=== PATIENT | male | born 1950 | race Caucasian/White ===

== ENCOUNTER 2024-05-29 11:32 | Inpatient (IN) | payer OTHER, MEDICARE, SELFPAY ==
--- NOTE | ~2024-05-29 | US_ITS ---
EXAMINATION: US RETROPERITONEAL LIMITED (RENAL ONLY) CLINICAL INFORMATION: Follow-up hydronephrosis.. COMPARISON: CT abdomen and pelvis dated 05/29/2024. TECHNIQUE: Real-time imaging of the kidneys. FINDINGS: RIGHT KIDNEY: 9.9 x 3.7 x 4.3 cm (SAG x AP x TRV). The kidney is normal in size, contour, and echogenicity. Renal cortical thickness is diminished. No calculi or focal parenchymal lesions. There is marked hydronephrosis. LEFT KIDNEY: 8.9 x 4.3 x 4.7 cm (SAG x AP x TRV). The kidney is normal in size, contour, and echogenicity. Renal cortical thickness is normal. No calculi or focal parenchymal lesions. There is moderately severe hydronephrosis. OTHER: The urinary bladder is decompressed by a Salcedo catheter. There is no bladder wall thickening to 1.3 cm, with trabeculations. Prostate dimensions are 9.1 x 8.0 x 4.5 cm (volume 361.0 mL). US/US renal BI IMPRESSION: 1. There is marked right hydronephrosis, with renal cortical thinning. Moderately severe left hydronephrosis is seen. 2. There is marked prostatomegaly. 3. The urinary bladder is decompressed by a Salcedo catheter. There is bladder wall thickening to 1.3 cm, possibly related to hypertrophy.
--- NOTE | ~2024-05-29 | CT_ITS ---
EXAMINATION: CT ABDOMEN AND PELVIS WITHOUT CONTRAST CLINICAL INFORMATION: Renal failure. Urinary retention. Dysuria. COMPARISON: None available. TECHNIQUE: Multidetector volumetric imaging was performed from the superior aspect of the liver through the pubic symphysis. Sagittal and coronal reformatted images were obtained on the technologist's workstation. This CT examination was performed using dose optimization techniques as appropriate, variously including the following: *Automated exposure control *Adjustment of mA and/or kV according to patient size (this includes techniques or standardized protocols for targeted exams where dose is matched to indication/reason for exam; i.e. extremities or head) *Use of iterative reconstruction technique DLP: 506 mGy-cm FINDINGS: Motion artifact technically degrades image quality. LUNG BASES: No pleural or pericardial effusion. LIVER, GALLBLADDER, AND BILIARY TREE: The noncontrast liver is normal in size and contour. No biliary ductal dilatation is present. The gallbladder is contracted. PANCREAS: Unremarkable. SPLEEN: Unremarkable. ADRENAL GLANDS: Unremarkable. KIDNEYS AND URETERS: Severe bilateral hydroureteronephrosis to the level of the enlarged prostate gland. Bilateral perinephric stranding. BLADDER: Circumferential wall thickening. Mild perivesicular stranding. Multiple bladder diverticula. GASTROINTESTINAL TRACT: Possible gastric wall thickening. No small bowel obstruction. Appendix is within normal limits. ABDOMINAL WALL: No significant hernia is appreciated. LYMPH NODES: Left external iliac lymph node measures 1.9 x 0.8 cm. VASCULAR: Normal caliber abdominal aorta. PELVIC VISCERA: Marked enlargement of the prostate gland. The prostate gland measures 9.2 x 9.5 cm in transverse. OSSEOUS STRUCTURES: No destructive bone lesions. CT/CT abdomen pelvis wo IV con IMPRESSION: Severe bilateral hydroureteronephrosis to the level of the enlarged prostate gland. Severe prostatomegaly measuring 9.2 x 9.5 cm in transverse. Diffuse bladder wall thickening and perivesicular stranding. These findings most likely represent obstructive uropathy/bladder outlet obstruction.
--- NOTE | ~2024-05-29 | IR_ITS ---
EXAMINATION: XR PERCUTANEOUS NEPHROSTOMY CLINICAL INFORMATION: Bilateral obstructive uropathy COMPARISON: CT abdomen and pelvis 05/29/2024. Ultrasound renal bilateral 06/01/2024. TECHNIQUE/FINDINGS: Informed consent was obtained following a discussion of the risks and benefits of the procedure with the patient. The patient was placed prone on the fluoroscopy table. Preliminary ultrasound demonstrates moderate-severe left hydronephrosis and moderate right hydronephrosis. We began by a dressing the left side. A posterior lower pole calyx was accessed with a 21-gauge AccuStick needle under direct ultrasound guidance. The needle was exchanged for the transitional dilator over a 0.018 guidewire. Antegrade nephrostogram demonstrates severe hydroureteronephrosis. A 0.035 guidewire was placed. After dilating the tract, an 8 [place] nephrostomy tube was placed. The pigtail was formed in the renal pelvis. Antegrade nephrostogram demonstrated satisfactory position of the tube. We then addressed to the left side. A posterior lower pole calyx was accessed with a 21-gauge AccuStick needle under direct ultrasound guidance. The needle was exchanged for the Trachsel dilator over a 0.018 guidewire. An antegrade nephrostogram demonstrates moderate hydroureteronephrosis. A 0.035 guidewire was placed. After dilating the tract, an 8 [place] nephrostomy tube was placed. Pigtail was formed in the renal pelvis. Antegrade nephrostogram demonstrates satisfactory position of the tube. Both catheters were secured with sutures and sterile dressings were applied. The catheters were maintained to gravity bag drainage. Medications for conscious sedation: The patient received intravenous conscious sedation under my direct supervision. A registered nurse monitored the patient and the patient's vital signs throughout the procedure. The total sedation was 39 minutes. Versed and fentanyl was given for good effect. FLUOROSCOPY TIME: 2.7 minutes DOSE AREA PRODUCT: 16 uGy-m2 (microgray-meter squared) IR/IR nephrostomy IMPRESSION: Placement of bilateral nephrostomy tubes as detailed above Electronically signed by: Jorge Alberto Herring MD 06/22/2024 01:32 PM EDT
[2024-05-29 11:49] VITALS: BP 185/87; PULSE 68; RESP 18; O2SAT 99; BMI 23.5
--- NOTE | 2024-05-29 11:51 | ED_ITS ---
HPI - General Adult General Chief complaint: Urogenital-Male Stated complaint: diff urinating Time Seen by Provider: 05/29/24 12:20 Source: patient Mode of arrival: ambulatory Limitations: no limitations History of Present Illness ED Provider: Dk Light PA-C HPI narrative: 74 yo male with no known medical history presents to the ER for evaluation of acute on chronic urinary retention, difficulty urinating and dysuria. Patient states he has had issues with urination for the last several years but over the last 1 year symptoms are getting worse. He states he is up 5 or 6 times per night urinating, he has to force the urine out and it is a very weak stream. He reports burning with urination for the last couple of months as well. He is urinating small amounts and having difficulty emptying his bladder. He denies any blood in his urine. Denies any abdominal pain or back pain. No fever or chills. He does not see a doctor and has not had labs done in about 10 years. He went to the urology office today for evaluation however he did not have prior authorization so they told him to come to the ER for further evaluation. MD complaint: Urinary retention, difficulty emptying the bladder Onset (ago): month(s) Radiation: non-radiation Severity: moderate Associated symptoms: denies other symptoms Treatments prior to arrival: none Related Data Home Medications ?Medication ?Instructions ?Recorded ?Confirmed No Known Home Meds 05/29/24 05/29/24 Allergies Allergy/AdvReac Type Severity Reaction Status Date / Time No Known Allergies Allergy Verified 05/29/24 11:53 Review of Systems 2 Review of Systems: Yes all other systems are reviewed and are negative PMFSH Social History Social History Advance Directives: No Advance Directives Information Provided: No Do you have a plan to hurt others: No Plan Physical Exam ED Vital Signs: Vital Signs - 24 hr 05/29/24 11:49 05/29/24 12:56 05/29/24 14:57 Temperature 97.9 F 97.6 F Pulse Rate 68 63 Respiratory Rate 18 16 Blood Pressure 185/87 H 198/93 H Pulse Oximetry 99 100 Oxygen Delivery Method Room Air Room Air 05/29/24 15:17 Temperature Pulse Rate 60 Respiratory Rate 16 Blood Pressure 175/86 H Pulse Oximetry Oxygen Delivery Method BMI result Body Mass Index 23.5 Appearance: Alert. Oriented X3. No acute distress. Head: normocephalic, atraumatic. Eyes: Pupils equal, round and reactive to light. ENT: Pharynx normal. No tonsillar swelling or exudate. Neck: Normal inspection. Neck supple. CVS: Normal heart rate and rhythm. Pulses normal. Respiratory: No respiratory distress. Breath sounds normal. Abdomen: Soft and nontender. +BS x4 Skin: Skin warm and dry. Normal skin color. Normal skin turgor. No rashes. Extremities: No lower extremity edema. No joint swelling. Neuro/psych: Oriented X 3. No motor deficit. No sensory deficit. CN II-XII intact. Normal speech and cognition. Course Course Course Narrative: RME performed by Lauren Stern PA-C. Patient is a 74 year old assigned male at presenting to the emergency department with difficulty urinating. Patient states that he has been having difficulty urinating for months. States that he is supposed to see the urologist group here but they told him to come to the ER first. Detailed physical exam and review of systems are deferred to the food selector. Labs and bladder scan ordered. Patient placed back in the waiting room pending room availability and results. Medications Administered Discontinued Medications Generic Name Dose Route Start Last Admin Trade Name Freq PRN Reason Stop Dose Admin Amlodipine Besylate 10 mg 05/29/24 14:57 05/29/24 15:18 Amlodipine Besylate 10 Mg Tablet PO 05/29/24 14:58 10 mg ONCE ONE Administration Protocol Sodium Chloride 1,000 mls @ 999 mls/hr 05/29/24 13:15 05/29/24 15:18 Ns IV 05/29/24 14:15 Infused .Q1H1M ADAM Infusion Ceftriaxone Sodium 1 gm/ 50 mls @ 100 mls/hr 05/29/24 13:07 05/29/24 15:08 Sodium Chloride IV 05/29/24 13:36 Infused ONCE ONE Infusion Lidocaine HCl 10 ml 05/29/24 15:57 05/29/24 16:13 Lidocaine Hcl 2 % Urojet 10 Ml Jel.Pf.Mike TOPICAL 05/29/24 15:58 10 ml ONCE ONE Administration Procedures Catheter Insertion (Urinary) Date of insertion: 05/29/24 Time of insertion: 16:08 Reason for placing: Yes Reason for placing indwelling catheter: Urinary obstruction Bladder scan/ultrasound used before catheterization: Yes Antiseptic solution prep: Povidone-Iodine Topical anesthesia used: Yes Catheter type/location: Coude Size (Georgian): 16 Catheter balloon size (mL): 30 Catheter balloon amount: 20 Results: successfully catheterized-immediate flow Procedure performed: without complications Medical Decision Making Medical Decision Making [facility] Narrative: 74-year-old male with no known medical history presents to the ER for evaluation of acute on chronic urinary complaints. He reports dysuria, frequency, difficulty emptying the bladder and weak urinary stream. Patient is hypertensive on arrival to the ER with systolic blood pressure in the 180s. He denies being on any medications for this. He does not have a primary care doctor. No chest pain, headache or vision changes. His urinalysis is positive for infection and blood. His physical exam is unremarkable, no CVA tenderness bilaterally. He has leukocytosis of 13.4. He is not tachycardic or febrile. Low suspicion for sepsis. Lab work is showing significant renal failure with a BUN of 114 and a creatinine of 5.68. He has no known baseline. Denies ever having history of kidney disease. Results of lab work discussed with the patient. Will get CT scan for evaluation of possible obstructive uropathy, urine electrolytes, give IV fluids and Rocephin for UTI. He will require admission to the hospital and Nephrology consult. No emergent need for dialysis at this time. His potassium is stable at 4.9 and he is mentating well with a BUN of 114 suggesting this is a chronic process. CT scan read showing 9+cm prostate gland with bilateral hydronephrosis and bladder outlet obstruction. Salcedo ordered. Dr. Reynolds consulted and aware. plan for admission for further management. Differential Diagnosis Differential Diagnoses: The differential diagnosis associated with the presentation includes UTI, BPH, chronic urinary retention with hydronephrosis, CKD related to hypertensive nephropathy Admission/Observation Consideration of admission/observation: Escalation of care including admission/observation considered Consult Healthcare Provider Management of the patient was discussed with: Hospitalist and Preschool Disability Teacher Dr. Reynolds Urology Lab Data [facility] Lab Attestation statement: I reviewed the patient's lab results. Leukocytosis, mild normocytic anemia, thrombocytosis, renal failure with significantly elevated BUN, hyponatremia, acidosis with anion gap 05/29/24 12:14 05/29/24 12:14 Labs: Lab Results 05/29/24 Range/Units 12:14 WBC 13.4 H (4.8-10.8) X10*3/uL RBC 3.92 L (4.60-5.80) X10*6/uL Hgb 11.5 L (14.0-18.0) g/dl Hct 34.9 L (42.0-52.0) % MCV 89.0 (80.0-98.0) fL MCH 29.3 (27.0-33.0) pg MCHC 33.0 (31.0-36.0) g/dl RDW 13.2 (11.0-16.0) % Plt Count 542 H (160-400) X10*3/uL MPV 9.0 L (9.4-12.4) fL Immature Gran % (Auto) 1.1 H (0.0-0.4) % Neut % (Auto) 75.3 H (45-73) % Lymph % (Auto) 12.2 L (20-40) % [place] % (Auto) 9.6 (2-11) % Eos % (Auto) 1.0 (0-4) % Baso % (Auto) 0.8 (0-2) % Lymph # (Auto) 1.6 (1.2-4.9) X10*3/uL [place] # (Auto) 1.3 H (0.1-1.2) X10*3/uL Eos # (Auto) 0.1 (0.0-0.4) X10*3/uL Baso # (Auto) 0.1 (0.0-0.2) X10*3/uL Abs Immat Gran (auto) 0.15 H (0.00-0.03) X10*3/uL Absolute Neuts (auto) 10.1 H (2.0-8.3) x10*3/uL Absolute Nucleated RBC 0.000 (0.0-0.012) X10*3/uL Nucleated RBC % (auto) 0.0 (0.0-0.2) /100WBC Sodium 129 L (135-145) mmol/L Potassium 4.9 (3.3-5.1) mmol/L Chloride 97 (96-108) mmol/L Carbon Dioxide 16 L (22-29) mmol/L Anion Gap 21 H (12-20) BUN 114 H (9-16) mg/dL Creatinine 5.68 H* (0.5-1.4) mg/dL Estim Creat Clear Calc 10.6 Estimated GFR 10 Random Glucose 113 (60-115) mg/dL Calcium 9.1 (8.4-10.2) mg/dL Magnesium 2.6 (1.6-2.6) mg/dL Total Bilirubin 0.6 (0.0-1.0) mg/dL AST 22 (5-37) U/L ALT 59 H (0-40) U/L Alkaline Phosphatase 251 H (39-117) U/L Total Protein 9.5 H (6.5-8.0) g/dL Albumin 3.8 (3.5-5.0) g/dL Urine Color PINK Urine Appearance Turbid Urine pH 5.5 (5.0-9.0) Ur Specific [place] 1.010 (1.005-1.025) Urine Protein 100 (2+) H (Neg-Trace) mg/dL Urine Glucose (UA) Negative (Negative) mg/dL Urine Ketones Negative (Negative) mg/dL Urine Blood Large (3+) H (Negative) Urine Nitrite Negative (Negative) Ur Leukocyte Esterase Large (3+) H (Negative) Urine RBC >20 H (0-2) /HPF Urine WBC >50 H (0-5) /HPF Ur Squamous Epith Cells 0-2 (0-2) /HPF Urine Bacteria 4+ (None Seen) Hyaline Casts 0-2 (0-2) /LPF Urine Osmolality 339 L (373-1093) mosm/kg Ur Random Sodium 46.0 mmol/L Urine Creatinine 65.57 mg/dL Independent Interpretation I performed an independent interpretation of an: CT Scan Interpretation: CT with severely enlarged prostate w/ bilateral hydronephrosis, bladder wall thickened Radiology Impression Discussion of test interpretation with radiology: I have reviewed the radiologist's reading. Radiologist Impression: EXAMINATION: CT ABDOMEN AND PELVIS WITHOUT CONTRAST CLINICAL INFORMATION: Renal failure. Urinary retention. Dysuria. COMPARISON: None available. TECHNIQUE: Multidetector volumetric imaging was performed from the superior aspect of the liver through the pubic symphysis. Sagittal and coronal reformatted images were obtained on the technologist's workstation. This CT examination was performed using dose optimization techniques as appropriate, variously including the following: *Automated exposure control *Adjustment of mA and/or kV according to patient size (this includes techniques or standardized protocols for targeted exams where dose is matched to indication/reason for exam; i.e. extremities or head) *Use of iterative reconstruction technique DLP: 506 mGy-cm FINDINGS: Motion artifact technically degrades image quality. LUNG BASES: No pleural or pericardial effusion. LIVER, GALLBLADDER, AND BILIARY TREE: The noncontrast liver is normal in size and contour. No biliary ductal dilatation is present. The gallbladder is contracted. PANCREAS: Unremarkable. SPLEEN: Unremarkable. ADRENAL GLANDS: Unremarkable. KIDNEYS AND URETERS: Severe bilateral hydroureteronephrosis to the level of the enlarged prostate gland. Bilateral perinephric stranding. BLADDER: Circumferential wall thickening. Mild perivesicular stranding. Multiple bladder diverticula. GASTROINTESTINAL TRACT: Possible gastric wall thickening. No small bowel obstruction. Appendix is within normal limits. ABDOMINAL WALL: No significant hernia is appreciated. LYMPH NODES: Left external iliac lymph node measures 1.9 x 0.8 cm. VASCULAR: Normal caliber abdominal aorta. PELVIC VISCERA: Marked enlargement of the prostate gland. The prostate gland measures 9.2 x 9.5 cm in transverse. OSSEOUS STRUCTURES: No destructive bone lesions. CT/CT abdomen pelvis wo IV con IMPRESSION: Severe bilateral hydroureteronephrosis to the level of the enlarged prostate gland. Severe prostatomegaly measuring 9.2 x 9.5 cm in transverse. Diffuse bladder wall thickening and perivesicular stranding. These findings most likely represent obstructive uropathy/bladder outlet obstruction. Prescription Management I considered prescription management with: Antibiotic Social Determinants Patient?s care significantly limited by Social Determinants of Health including: Problems related to primary support group and Other Social Determinant of Health Critical Care Time Critical Care Time Critical Care Time: Yes Total Critical Care Time: 40 Attestation: I have personally provided critical care time exclusive of time spent on separately billable procedures. Time includes review of lab data, radiology results, discussion with consultants, and monitoring for potential decompensation. Intervention performed as documented. Discharge Plan Discharge Clinical Impression: Bladder outlet obstruction, Enlarged prostate with urinary obstruction Urinary tract infection Qualifiers: Urinary tract infection type: acute cystitis Hematuria presence: with hematuria Qualified Code(s): N30.01 - Acute cystitis with hematuria Renal failure Qualifiers: Renal failure chronicity: unspecified chronicity Qualified Code(s): N19 - Unspecified kidney failure Hypertension Qualifiers: Hypertension type: unspecified Qualified Code(s): I10 - Essential (primary) hypertension Patient Disposition: Admitted As Inpatient
[2024-05-29 12:21] LABS: MANUAL DIFF FLAG NO
[2024-05-29 12:22] LABS: Basophils Absolute Auto 0.1 X10*3/uL (0.0-0.2); Basophils Percent Auto 0.8 % (0-2); Eosinophils Absolute Auto 0.1 X10*3/uL (0.0-0.4); Hematocrit 34.9 % (42.0-52.0); Hemoglobin 11.5 g/dl (14.0-18.0); Imm Gran Abs Auto 0.15 X10*3/uL (0.00-0.03); Imm Gran Pct Auto 1.1 % (0.0-0.4); Lymphocytes Absolute Auto 1.6 X10*3/uL (1.2-4.9); Lymphocytes Percent Auto 12.2 % (20-40); Mean Corpuscular Hemoglobin 29.3 pg (27.0-33.0); Monocytes Absolute Auto 1.3 X10*3/uL (0.1-1.2); Monocytes Percent Auto 9.6 % (2-11); Neutrophils Absolute Auto 10.1 x10*3/uL (2.0-8.3); Neutrophils Percent Auto 75.3 % (45-73); Platelet Count 542 X10*3/uL (160-400); Red Blood Count 3.92 X10*6/uL (4.60-5.80); Red Cell Distribution Width 13.2 % (11.0-16.0); White Blood Count 13.4 X10*3/uL (4.8-10.8)
[2024-05-29 12:24] LABS: Appearance Urine Turbid; Glucose Urine UA Negative (Negative); Leukocyte Esterase Urine Large (3+) (Negative); Nitrite Urine Negative (Negative); PH 5.5 (5.0-9.0); UMIC TRIGGER UACC YES; Urine Blood Large (3+) (Negative); Urine Ketones Negative (Negative); Urine Protein 100 (2+) mg/dL (Neg-Trace)
[2024-05-29 12:25] LABS: Color Urine PINK
[2024-05-29 12:26] LABS: Bacteria Urine 4+ (None Seen); Hyaline Casts Urine 0-2 /LPF (0-2); RBC Urine >20 /HPF (0-2); Squamous Epithelial Cell Urine 0-2 /HPF (0-2); UACC Culture Trigger YES; WBC Urine >50 /HPF (0-5)
[2024-05-29 12:45] LABS: Alanine Aminotransferase 59 U/L (0-40); Albumin Level 3.8 g/dL (3.5-5.0); Alkaline Phosphatase 251 U/L (39-117); Anion Gap 21 (12-20); Aspartate Amino Transferase 22 U/L (5-37); Bilirubin Total 0.6 mg/dL (0.0-1.0); Blood Urea Nitrogen 114 mg/dL (9-16); Calcium 9.1 mg/dL (8.4-10.2); Carbon Dioxide 16 mmol/L (22-29); Chloride 97 mmol/L (96-108); Glucose Random 113 mg/dL (60-115); Magnesium 2.6 mg/dL (1.6-2.6); Potassium 4.9 mmol/L (3.3-5.1); Sodium 129 mmol/L (135-145); Total Protein 9.5 g/dL (6.5-8.0)
[2024-05-29 12:48] LABS: Creatinine Clr Calc Pharmacy 10.6; Estimated Glomerular Filt Rate 10
[2024-05-29 12:56] VITALS: TEMP 36.6
[2024-05-29 13:25] LABS: Creatinine Urine 65.57 mg/dL
[2024-05-29] MEDS: cefTRIAXone sodium 1 GM in 0.9 % Sodium Chloride 50 ML IV (13:46)
[2024-05-29] MEDS: 0.9 % Sodium Chloride 1,000 ML 999 ML IV (13:46)
[2024-05-29 13:58] LABS: Osmolality Urine 339 mosm/kg (373-1093)
[2024-05-29 14:57] VITALS: BP 198/93; PULSE 63; RESP 16; TEMP 36.4; O2SAT 100
[2024-05-29 15:17] VITALS: BP 175/86; PULSE 60; RESP 16
[2024-05-29] MEDS: amLODIPine Besylate 10 MG TABLET PO (15:18)
[2024-05-29] MEDS: Lidocaine HCl 2 % Urojet 10 ML JEL.PF.APP TOPICAL (16:13)
--- NOTE | 2024-05-29 16:21 | P.HPHOSP_ITS ---
History of Present Illness Date of Service: 05/29/24 Chief Complaint: Urinary retention 74-year-old man presenting to the ER with complaints of worsening urinary retention. Apparently he has been having difficulty urination and dysuria for the last several years but worsening symptoms over the last year. He reports that he urinates at least 5 times per night and feels like he has to force the urine out and has a very weak stream. He reported some burning with urination over the last few months as well. He reports that he lives with his and he is very active playing sports including soccer. He denied any fever, chills, nausea, vomiting, diarrhea. He reports that he has not seen a doctor in over 10 years. Apparently he went to the urology office today and did not have prior authorization for his visit and he was told to come to the ER for further evaluation. He has multiple noted lab abnormalities including sodium of 129, CO2 16, anion gap 21, creatinine 5.68, AST 59, alk phos 251, positive urinalysis, white blood cell count 13.4. Abdominopelvic CT showed severe bilateral hydronephrosis with enlarged prostate gland and severe prostatomegaly. Diffuse bladder wall thickening and perivascular stranding likely secondary to bladder outlet obstruction. He was also noted to have elevated blood pressure and not on any home medications. In the ER, he received a L of IV fluid, Rocephin, amlodipine. Plan will be to admit for further management and treatment of JANINA secondary to bladder outlet obstruction. Review of Systems 2 Review of Systems: Denies any recent fever chills or decrease in appetite respiratory denied any shortness breath or cough cardiovascular denied any chest pain gastrointestinal denies any dysphagia abdominal pain nausea vomiting or diarrhea genitourinary see HPI musculoskeletal denies any joint pain or swelling neuropsych denies any weakness or seizures all other systems reviewed are negative [facility] Medical History (Updated 05/29/24 @ 17:37 by Leticia Patterson NP) No pertinent past medical history Pertinent family history: No history of cancer, cardiac or gastrointestinal problems Surgical History (Updated 05/29/24 @ 17:37 by Leticia Patterson NP) No pertinent past surgical history Social History Advance Directives: No Advance Directives Information Provided: No Do you have a plan to hurt others: No Plan Meds Allergies Allergy/AdvReac Type Severity Reaction Status Date / Time No Known Allergies Allergy Verified 05/29/24 11:53 Active Medications: Current Medications Acetaminophen (Acetaminophen 325 Mg Tablet) 650 mg PO Q6H PRN PRN Reason: Pain, Mild (Pain Scale 1-3), fever or headache Calcium Carbonate (Calcium Carbonate 750 Mg Tab.Chew) 750 mg PO Q4H PRN PRN Reason: Heartburn Heparin Sodium (Porcine) (Heparin Sodium,Porcine 5,000 Unit/Ml Vial) 5,000 unit SUBCUT Q12H ADAM Ceftriaxone Sodium 1 gm/ (Sodium Chloride) 50 mls @ 100 mls/hr IV Q24H ADAM Magnesium Hydroxide (Milk Of Magnesia 30 Ml Oral.Susp) 30 ml PO DAILY PRN PRN Reason: Constipation Melatonin (Melatonin 3 Mg Tablet) 6 mg PO BEDTIME PRN PRN Reason: Insomnia Sodium Chloride (0.9 % Sodium Chloride Flush 3 Ml Syringe) 3 ml IVFLUSH QSHIFT ADAM Home Medications ?Medication ?Instructions ?Recorded ?Confirmed ?Last Taken ?Type No Known Home Meds 05/29/24 05/29/24 Unknown History Physical Exam 2 Vital Signs and Narrative: Vital Signs: Last Vital Signs Temp 97.6 F 05/29/24 14:57 Pulse 60 05/29/24 15:17 Resp 16 05/29/24 15:17 BP 175/86 H 05/29/24 15:17 Pulse Ox 100 05/29/24 14:57 O2 Del Method Room Air 05/29/24 14:57 BMI result Body Mass Index 23.5 Appearing in no acute distress head is normocephalic atraumatic eyes pupils are PERRLA sclera is anicteric mouth throat mucous membranes are intact and moist neck is supple no lymphadenopathy, no JVD noted lung sounds are clear to auscultation heart regular rate rhythm, clear S1, S2 positive bowel sounds, abdomen is soft, nontender neuro patient is alert x3, no focal deficits Results Labs 05/29/24 12:14 05/29/24 12:14 Labs: Laboratory Results - last 24 hr 05/29/24 12:14 MCV 89.0 MCH 29.3 MCHC 33.0 RDW 13.2 Plt Count 542 H MPV 9.0 L Immature Gran % (Auto) 1.1 H Neut % (Auto) 75.3 H Lymph % (Auto) 12.2 L [place] % (Auto) 9.6 Eos % (Auto) 1.0 Baso % (Auto) 0.8 Lymph # (Auto) 1.6 [place] # (Auto) 1.3 H Eos # (Auto) 0.1 Baso # (Auto) 0.1 Abs Immat Gran (auto) 0.15 H Absolute Neuts (auto) 10.1 H Absolute Nucleated RBC 0.000 Nucleated RBC % (auto) 0.0 Anion Gap 21 H Estim Creat Clear Calc 10.6 Estimated GFR 10 Random Glucose 113 Calcium 9.1 Magnesium 2.6 Total Bilirubin 0.6 AST 22 ALT 59 H Alkaline Phosphatase 251 H Total Protein 9.5 H Albumin 3.8 Urine Color PINK Urine Appearance Turbid Urine pH 5.5 Ur Specific [place] 1.010 Urine Protein 100 (2+) H Urine Glucose (UA) Negative Urine Ketones Negative Urine Blood Large (3+) H Urine Nitrite Negative Ur Leukocyte Esterase Large (3+) H Urine RBC >20 H Urine WBC >50 H Ur Squamous Epith Cells 0-2 Urine Bacteria 4+ Hyaline Casts 0-2 Urine Osmolality 339 L Ur Random Sodium 46.0 Urine Creatinine 65.57 Imaging Radiologist's Impressions: Impressions Abdomen/Pelvis CT 05/29/24 13:25 IMPRESSION: Severe bilateral hydroureteronephrosis to the level of the enlarged prostate gland. Severe prostatomegaly measuring 9.2 x 9.5 cm in transverse. Diffuse bladder wall thickening and perivesicular stranding. These findings most likely represent obstructive uropathy/bladder outlet obstruction. Assessment and Plan (1) Enlarged prostate with urinary obstruction: Status: Acute (2) Hypertension: Qualifiers: Hypertension type: unspecified Qualified Code(s): I10 - Essential (primary) hypertension Status: Acute Plan 74-year-old man admitted with JANINA secondary to bladder outlet obstruction Bladder outlet obstruction Secondary to prostatomegaly Salcedo catheter placed and draining Monitor output closely Urology consultation pending Urinary tract infection Likely secondary to bladder outlet obstruction Start IV Rocephin Follow cultures JANINA Unknown baseline Creatinine 5.68 Likely secondary to bladder outlet obstruction Salcedo catheter placed Follow creatinine closely Nephrology consultation pending Anion gap metabolic acidosis Likely secondary to urinary retention Treat as above Hyponatremia likely secondary to bladder outlet obstruction Repeat sodium this evening Nephrology consultation pending Elevated blood pressure reading No history of hypertension and not on any medications We will follow blood pressure closely, add p.r.n. hydralazine for now If blood pressure remains elevated may consider starting antihypertensive medication DVT prophylaxis with heparin Full code Quality Stroke Does the patient have a stroke diagnosis?: No VTE Prior VTE?: No VTE Risk Level:: Medical - moderate - high VTE Device Contraindication: N/A - Device Ordered VTE Drug Contraindication: N/A - Med Ordered
--- NOTE | 2024-05-29 16:38 | PHA.MEDREC ---
Addendum entered by Aiden Agrawal RPh 05/29/24 17:01: MED REC CHECKED BY [facility] Original Note: Pharmacy Consult ? Medication Reconciliation Pharmacy has completed the medication reconciliation.
--- NOTE | 2024-05-29 17:41 | P.CNUR_ITS ---
History of Present Illness Consult details Consult date: 05/29/24 Narrative: CC: Urinary retention with elevated creatinine 74-year-old male No known past medical history Has not seen a physician in more than 15 years Presents with evaluation of acute on chronic urinary retention. Difficulty urinating with dysuria. Reports weakening of stream for the past several years but recently had been urinating small amounts and today was unable to urinate. Reports nocturia 5-6 times per night Was sent for evaluation from urology office Found to have approximately 1000 cc in bladder. Catheter placed. Creatinine 5.6, WBC 13.4 Will be admitted to track creatinine resolution CT scan - Severe bilateral hydroureteronephrosis to the level of the enlarged prostate gland. Severe prostatomegaly measuring 9.2 x 9.5 cm in transverse. Diffuse bladder wall thickening and perivesicular stranding. Recommend office follow-up 4 weeks for voiding trial and cystoscopy Start finasteride Start doxazosin Repeat renal ultrasound in 48 hours to confirm resolution of hydronephrosis Review of Systems 2 Constitutional: Constitutional: Reports as per HPI and Reports no additional constitutional complaints Cardiovascular: Cardiovascular: Reports as per HPI and Reports no additional cardiovascular complaints Respiratory: Respiratory: Reports as per HPI and Reports no additional respiratory complaints Gastrointestinal: Gastrointestinal: Reports as per HPI and Reports no additional gastrointestinal complaints Genitourinary: Genitourinary: Reports as per HPI Musculoskeletal: Musculoskeletal: Reports no additional musculoskeletal complaints and Reports as per HPI Neurologic: Reports system reviewed and no additional complaints, except as documented and Reports as per HPI [facility] Past Medical History Medical History (Updated 05/29/24 @ 17:37 by Leticia Patterson NP) No pertinent past medical history Surgical History Surgical History (Updated 05/29/24 @ 17:37 by Leticia Patterson NP) No pertinent past surgical history Social History Social History Advance Directives: No Advance Directives Information Provided: No Do you have a plan to hurt others: No Plan Meds Allergies Allergy/AdvReac Type Severity Reaction Status Date / Time No Known Allergies Allergy Verified 05/29/24 11:53 Active Medications: Current Medications Acetaminophen (Acetaminophen 325 Mg Tablet) 650 mg PO Q6H PRN PRN Reason: Pain, Mild (Pain Scale 1-3), fever or headache Calcium Carbonate (Calcium Carbonate 750 Mg Tab.Chew) 750 mg PO Q4H PRN PRN Reason: Heartburn Heparin Sodium (Porcine) (Heparin Sodium,Porcine 5,000 Unit/Ml Vial) 5,000 unit SUBCUT Q12H [facility] Hydralazine HCl (Hydralazine Hcl 20 Mg/Ml Vial) 5 mg IVPUSH Q6H PRN; Protocol PRN Reason: SBP>190 Ceftriaxone Sodium 1 gm/ (Sodium Chloride) 50 mls @ 100 mls/hr IV Q24H [facility] Magnesium Hydroxide (Milk Of Magnesia 30 Ml Oral.Susp) 30 ml PO DAILY PRN PRN Reason: Constipation Melatonin (Melatonin 3 Mg Tablet) 6 mg PO BEDTIME PRN PRN Reason: Insomnia Sodium Chloride (0.9 % Sodium Chloride Flush 3 Ml Syringe) 3 ml IVFLUSH QSHIFT [facility] Home Medications ?Medication ?Instructions ?Recorded ?Confirmed ?Last Taken ?Type No Known Home Meds 05/29/24 05/29/24 Unknown History Physical Exam 2 Vital Signs: Vital Signs: Last Vital Signs Temp 97.6 F 05/29/24 14:57 Pulse 60 05/29/24 15:17 Resp 16 05/29/24 15:17 BP 175/86 H 05/29/24 15:17 Pulse Ox 100 05/29/24 14:57 O2 Del Method Room Air 05/29/24 14:57 BMI result Body Mass Index 23.5 Const: General: cooperative, healthy appearing, comfortable and no acute distress Orientation/consciousness: patient oriented x3 HEENT: Face and sinus: Yes normal facial exam Mouth: moist mucous membranes Neck: Neck: Yes normal visual inspection, Yes full ROM and Yes trachea midline Chest: Chest palpation & inspection: normal inspection of the chest Resp: Effort & Inspection: normal respiratory effort, able to speak in complete sentences and no respiratory distress GI: Inspection: Yes normal to inspection Back/Spine/Pelvis: Cervical Spine: normal cervical lordosis Thoracic/Lumbar Spine: thoracic and lumbar spine normal to inspection Skin: General skin exam: no rashes or lesions noted Neuro: General: patient oriented x3, tone normal and moves all extremities Extrem: General: Yes normal to inspection and Yes capillary refill normal Results Labs 05/29/24 12:14 05/29/24 12:14 Labs: Abnormal lab results 05/29/24 Range/Units 12:14 WBC 13.4 H (4.8-10.8) X10*3/uL RBC 3.92 L (4.60-5.80) X10*6/uL Hgb 11.5 L (14.0-18.0) g/dl Hct 34.9 L (42.0-52.0) % Plt Count 542 H (160-400) X10*3/uL MPV 9.0 L (9.4-12.4) fL Immature Gran % (Auto) 1.1 H (0.0-0.4) % Neut % (Auto) 75.3 H (45-73) % Lymph % (Auto) 12.2 L (20-40) % [place] # (Auto) 1.3 H (0.1-1.2) X10*3/uL Abs Immat Gran (auto) 0.15 H (0.00-0.03) X10*3/uL Absolute Neuts (auto) 10.1 H (2.0-8.3) x10*3/uL Sodium 129 L (135-145) mmol/L Carbon Dioxide 16 L (22-29) mmol/L Anion Gap 21 H (12-20) BUN 114 H (9-16) mg/dL Creatinine 5.68 H* (0.5-1.4) mg/dL ALT 59 H (0-40) U/L Alkaline Phosphatase 251 H (39-117) U/L Total Protein 9.5 H (6.5-8.0) g/dL Urine Protein 100 (2+) H (Neg-Trace) mg/dL Urine Blood Large (3+) H (Negative) Ur Leukocyte Esterase Large (3+) H (Negative) Urine RBC >20 H (0-2) /HPF Urine WBC >50 H (0-5) /HPF Urine Osmolality 339 L (373-1093) mosm/kg Short CBC 05/29/24 Range/Units 12:14 WBC 13.4 H (4.8-10.8) X10*3/uL Hgb 11.5 L (14.0-18.0) g/dl Hct 34.9 L (42.0-52.0) % Plt Count 542 H (160-400) X10*3/uL BMP 05/29/24 12:14 Sodium 129 L Potassium 4.9 Chloride 97 Carbon Dioxide 16 L BUN 114 H Creatinine 5.68 H* Calcium 9.1 Liver Function 05/29/24 Range/Units 12:14 Total Bilirubin 0.6 (0.0-1.0) mg/dL AST 22 (5-37) U/L ALT 59 H (0-40) U/L Alkaline Phosphatase 251 H (39-117) U/L Albumin 3.8 (3.5-5.0) g/dL Urine 05/29/24 Range/Units 12:14 Urine Color PINK Urine Appearance Turbid Urine pH 5.5 (5.0-9.0) Ur Specific [place] 1.010 (1.005-1.025) Urine Protein 100 (2+) H (Neg-Trace) mg/dL Urine Glucose (UA) Negative (Negative) mg/dL All other labs normal. Assessment and Plan (1) Renal failure: Qualifiers: Renal failure chronicity: unspecified chronicity Qualified Code(s): N19 - Unspecified kidney failure Status: Acute (2) Bladder outlet obstruction: Status: Acute (3) Enlarged prostate with urinary obstruction: Status: Acute Plan Salcedo catheter for drainage Follow creatinine per Nephrology recommendations Procedures Date of Service Date of Service: 05/29/24
[2024-05-29 18:09] LABS: Lactic Acid 0.8 mmol/L (0.5-2.0)
[2024-05-29 18:18] VITALS: BP 145/79; PULSE 66; RESP 16; O2SAT 98
[2024-05-29] MEDS: Heparin Sodium,Porcine 5,000 UNIT/ML VIAL 5000 UNIT SUBCUT (18:20)
[2024-05-29 18:26] LABS: Alanine Aminotransferase 53 U/L (0-40); Albumin Level 3.6 g/dL (3.5-5.0); Alkaline Phosphatase 231 U/L (39-117); Anion Gap 20 (12-20); Aspartate Amino Transferase 19 U/L (5-37); Bilirubin Direct 0.2 mg/dL (0.0-0.5); Bilirubin Total 0.4 mg/dL (0.0-1.0); Blood Urea Nitrogen 109 mg/dL (9-16); Calcium 8.7 mg/dL (8.4-10.2); Carbon Dioxide 15 mmol/L (22-29); Chloride 99 mmol/L (96-108); Creatinine Clr Calc Pharmacy 11.8; Estimated Glomerular Filt Rate 11; Glucose Random 104 mg/dL (60-115); Potassium 4.6 mmol/L (3.3-5.1); Sodium 129 mmol/L (135-145)
[2024-05-29 19:13] VITALS: BP 170/81; PULSE 68; RESP 18; TEMP 36.4; O2SAT 99
[2024-05-29] MEDS: Finasteride 5 MG TABLET PO (20:36)
[2024-05-29] MEDS: 0.9 % Sodium Chloride Flush 3 ML SYRINGE IVFLUSH (20:36)
[2024-05-29] MEDS: Sodium Bicarbonate 8.4% 100 MEQ in Dextrose 5 % 900 ML 50 MEQ IV (21:29)
[2024-05-29 21:41] VITALS: BMI 23.5
[2024-05-30 03:56] VITALS: BP 143/76; PULSE 69; RESP 16; TEMP 36.6; O2SAT 98
[2024-05-30] MEDS: Heparin Sodium,Porcine 5,000 UNIT/ML VIAL 5000 UNIT SUBCUT ×2 (03:59→16:47)
[2024-05-30 06:14] LABS: MANUAL DIFF FLAG NO
[2024-05-30 06:22] LABS: Basophils Absolute Auto 0.1 X10*3/uL (0.0-0.2); Basophils Percent Auto 0.6 % (0-2); Eosinophils Absolute Auto 0.1 X10*3/uL (0.0-0.4); Eosinophils Percent Auto 1.1 % (0-4); Hematocrit 30.2 % (42.0-52.0); Hemoglobin 10.1 g/dl (14.0-18.0); Imm Gran Abs Auto 0.11 X10*3/uL (0.00-0.03); Imm Gran Pct Auto 0.9 % (0.0-0.4); Lymphocytes Percent Auto 8.1 % (20-40); Mean Corpuscular HGB Conc 33.4 g/dl (31.0-36.0); Mean Corpuscular Hemoglobin 28.8 pg (27.0-33.0); Mean Platelet Volume 9.2 fL (9.4-12.4); Monocytes Percent Auto 8.3 % (2-11); Neutrophils Absolute Auto 10.1 x10*3/uL (2.0-8.3); Platelet Count 513 X10*3/uL (160-400); Red Blood Count 3.51 X10*6/uL (4.60-5.80); Red Cell Distribution Width 13.2 % (11.0-16.0); White Blood Count 12.5 X10*3/uL (4.8-10.8)
[2024-05-30 06:50] LABS: Alanine Aminotransferase 41 U/L (0-40); Albumin Level 3.2 g/dL (3.5-5.0); Alkaline Phosphatase 208 U/L (39-117); Anion Gap 18 (12-20); Aspartate Amino Transferase 20 U/L (5-37); Bilirubin Total 0.4 mg/dL (0.0-1.0); Blood Urea Nitrogen 102 mg/dL (9-16); Calcium 8.3 mg/dL (8.4-10.2); Carbon Dioxide 17 mmol/L (22-29); Chloride 98 mmol/L (96-108); Estimated Glomerular Filt Rate 11; Glucose Random 108 mg/dL (60-115); Potassium 4.2 mmol/L (3.3-5.1); Sodium 129 mmol/L (135-145); Total Protein 7.9 g/dL (6.5-8.0)
[2024-05-30 06:59] LABS: Thyroid Stimulating Hormone 3.55 uIU/mL (0.32-4.0)
[2024-05-30 07:19] VITALS: BP 131/76; PULSE 65; RESP 18; TEMP 36.8; O2SAT 97
[2024-05-30 07:53] LABS: Estimated Average Glucose 120 mg/dL; Hemoglobin A1c % 5.8 % (<6.0)
[2024-05-30] MEDS: Finasteride 5 MG TABLET PO (09:15)
--- NOTE | 2024-05-30 10:39 | MHC.CM.PN ---
PT LIVES HIS IS INDEPNDET WILL NOT NEED SERVIES WHEN DCD HAS OWN RIDE HOME
--- NOTE | 2024-05-30 11:04 | HO.PM.IMPN ---
Subjective Subjective Date of Service: 05/30/24 Review of Systems Follow up bladder outlet obstruction feels good no pain or nausea Physical Exam Vital Signs: Vital Signs: Last Vital Signs Temp 98.3 F 05/30/24 07:19 Pulse 65 05/30/24 07:19 Resp 18 05/30/24 07:19 BP 131/76 05/30/24 07:19 Pulse Ox 97 05/30/24 07:19 O2 Del Method Room Air 05/30/24 07:19 BMI result Body Mass Index 23.5 Appearing in no acute distress lung sounds are clear to auscultation heart regular rate rhythm, clear S1, S2 positive bowel sounds, abdomen is soft, nontender neuro patient is alert x3, no focal deficits Cortes cath on place Objective Data Active Medications Acetaminophen (Acetaminophen 325 Mg Tablet) 650 mg PO Q6H PRN PRN Reason: Pain, Mild (Pain Scale 1-3), fever or headache Calcium Carbonate (Calcium Carbonate 750 Mg Tab.Chew) 750 mg PO Q4H PRN PRN Reason: Heartburn Finasteride (Finasteride 5 Mg Tablet) 5 mg PO DAILY [facility] Last Admin: 05/30/24 09:15 Dose: 5 mg Documented By: TIMOTHY Heparin Sodium (Porcine) (Heparin Sodium,Porcine 5,000 Unit/Ml Vial) 5,000 unit SUBCUT Q12H [facility] Last Admin: 05/30/24 03:59 Dose: 5,000 unit Documented By: CHRISTINE Hydralazine HCl (Hydralazine Hcl 20 Mg/Ml Vial) 5 mg IVPUSH Q6H PRN; Protocol PRN Reason: SBP>190 Ceftriaxone Sodium 1 gm/ (Sodium Chloride) 50 mls @ 100 mls/hr IV Q24H [facility] Sodium Bicarbonate 100 meq/ (Dextrose) 1,000 mls @ 50 mls/hr IV .Q20H [facility] Stop: 05/30/24 14:59 Last Admin: 05/29/24 21:29 Dose: 50 mls/hr Documented By: CHRISTINE Magnesium Hydroxide (Milk Of Magnesia 30 Ml Oral.Susp) 30 ml PO DAILY PRN PRN Reason: Constipation Melatonin (Melatonin 3 Mg Tablet) 6 mg PO BEDTIME PRN PRN Reason: Insomnia Sodium Chloride (0.9 % Sodium Chloride Flush 3 Ml Syringe) 3 ml IVFLUSH QSHIFT [facility] Last Admin: 05/30/24 09:15 Dose: Not Given Documented By: TIMOTHY Non-Admin Reason: IV Running Labs 05/30/24 05:35 05/30/24 05:35 Labs: Laboratory Results - last 24 hr 05/29/24 05/29/24 05/30/24 12:14 17:41 05:35 MCV 89.0 86.0 MCH 29.3 28.8 MCHC 33.0 33.4 RDW 13.2 13.2 Plt Count 542 H 513 H MPV 9.0 L 9.2 L Immature Gran % (Auto) 1.1 H 0.9 H Neut % (Auto) 75.3 H 81.0 H Lymph % (Auto) 12.2 L 8.1 L [place] % (Auto) 9.6 8.3 Eos % (Auto) 1.0 1.1 Baso % (Auto) 0.8 0.6 Lymph # (Auto) 1.6 1.0 L [place] # (Auto) 1.3 H 1.0 Eos # (Auto) 0.1 0.1 Baso # (Auto) 0.1 0.1 Abs Immat Gran (auto) 0.15 H 0.11 H Absolute Neuts (auto) 10.1 H 10.1 H Absolute Nucleated RBC 0.000 0.000 Nucleated RBC % (auto) 0.0 0.0 Anion Gap 21 H 20 18 Estim Creat Clear Calc 10.6 11.8 12.0 Estimated GFR 10 11 11 Random Glucose 113 104 108 Estimat Average Glucose 120 Hemoglobin A1c % 5.8 Lactic Acid 0.8 Calcium 9.1 8.7 8.3 L Magnesium 2.6 Total Bilirubin 0.6 0.4 0.4 Direct Bilirubin 0.2 AST 22 19 20 ALT 59 H 53 H 41 H Alkaline Phosphatase 251 H 231 H 208 H Total Protein 9.5 H 9.0 H 7.9 Albumin 3.8 3.6 3.2 L TSH 3.55 Urine Color PINK Urine Appearance Turbid Urine pH 5.5 Ur Specific [place] 1.010 Urine Protein 100 (2+) H Urine Glucose (UA) Negative Urine Ketones Negative Urine Blood Large (3+) H Urine Nitrite Negative Ur Leukocyte Esterase Large (3+) H Urine RBC >20 H Urine WBC >50 H Ur Squamous Epith Cells 0-2 Urine Bacteria 4+ Hyaline Casts 0-2 Urine Osmolality 339 L Ur Random Sodium 46.0 Urine Creatinine 65.57 Microbiology Microbiology Results: Microbiology 05/29/24 Unknown Urine Culture - Preliminary Urine clean catch - Clean Catch Midstream Culture in progress. Assessment and Plan (1) Enlarged prostate with urinary obstruction: Status: Acute (2) Bladder outlet obstruction: Status: Acute Plan 74-year-old man admitted with JANINA secondary to bladder outlet obstruction, patient has not been to pcp or hospital for more than 10 years Bladder outlet obstruction Secondary to prostatomegaly Cortes catheter placed and draining Monitor output closely Urology following. Plan will likely be for cortes to remain in place at al and follow up with urology o/p, finesteride added Urinary tract infection Likely secondary to bladder outlet obstruction continue IV Rocephin Follow cultures JANINA Unknown baseline Creatinine slowly trending down, 5.01 today secondary to bladder outlet obstruction Cortes catheter Follow creatinine closely Nephrology> Anion gap metabolic acidosis Likely secondary to urinary retention Treat as above Hyponatremia likely secondary to bladder outlet obstruction Repeat sodium this evening Nephrology consultation pending Elevated blood pressure reading. Trending down No history of hypertension and not on any medications We will follow blood pressure closely, add p.r.n. hydralazine for now If blood pressure remains elevated may consider starting antihypertensive medication DVT prophylaxis with heparin attending Dr. Meredith Full code Quality Stroke Does the patient have a stroke diagnosis?: No VTE Prior VTE?: No VTE Risk Level:: Medical - moderate - high VTE Device Contraindication: N/A - Device Ordered VTE Drug Contraindication: N/A - Med Ordered
--- NOTE | 2024-05-30 12:36 | PM.CNNEP ---
History of Present Illness Reason for Consult Consult date: 05/30/24 Reason for consult: JANINA Chief Complaint Chief complaint: bladder outlet obstruction History of Present Illness Narrative: 74-year-old man presented to the ER with complaints of worsening urinary retention. Apparently he has been having difficulty urination and dysuria for the last several years but worsening symptoms over the last year. He reports that he urinates at least 5 times per night and feels like he has to force the urine out and has a very weak stream. He reports that he lives with his and he is very active playing sports including soccer. He denied any fever, chills, nausea, vomiting, diarrhea. He reports that he has not seen a doctor in over 10 years. In the ER he had sodium 129, CO2 16, anion gap 21, creatinine 5.68, AST 59, alk phos 251, positive urinalysis, white blood cell count 13.4. Abdominopelvic CT showed severe bilateral hydronephrosis with enlarged prostate gland and severe prostatomegaly. Diffuse bladder wall thickening and perivascular stranding likely secondary to bladder outlet obstruction. He was also noted to have elevated blood pressure and not on any home medications. In the ER, he received a L of IV fluid, Rocephin, amlodipine. He was admitted for further management. Nephrology was consulted to assist in his clinical care during his current hospital stay Review of Systems Review of Systems Yes all other systems are reviewed and are negative [facility] Past Medical History Medical History (Updated 05/30/24 @ 12:41 by Lang Conner MD) No pertinent past medical history Surgical History Surgical History (Updated 05/29/24 @ 17:37 by Leticia Patterson NP) No pertinent past surgical history Social History Social History Household Members: Significant Other Housing: House Do you presently have visiting nurse or other home services: No Patient Tobacco Use Status: Never used Tobacco service: No Meds Allergies Allergy/AdvReac Type Severity Reaction Status Date / Time No Known Allergies Allergy Verified 05/29/24 11:53 Active Medications: Current Medications Acetaminophen (Acetaminophen 325 Mg Tablet) 650 mg PO Q6H PRN PRN Reason: Pain, Mild (Pain Scale 1-3), fever or headache Calcium Carbonate (Calcium Carbonate 750 Mg Tab.Chew) 750 mg PO Q4H PRN PRN Reason: Heartburn Finasteride (Finasteride 5 Mg Tablet) 5 mg PO DAILY [facility] Last Admin: 05/30/24 09:15 Dose: 5 mg Heparin Sodium (Porcine) (Heparin Sodium,Porcine 5,000 Unit/Ml Vial) 5,000 unit SUBCUT Q12H [facility] Last Admin: 05/30/24 03:59 Dose: 5,000 unit Hydralazine HCl (Hydralazine Hcl 20 Mg/Ml Vial) 5 mg IVPUSH Q6H PRN; Protocol PRN Reason: SBP>190 Ceftriaxone Sodium 1 gm/ (Sodium Chloride) 50 mls @ 100 mls/hr IV Q24H [facility] Magnesium Hydroxide (Milk Of Magnesia 30 Ml Oral.Susp) 30 ml PO DAILY PRN PRN Reason: Constipation Melatonin (Melatonin 3 Mg Tablet) 6 mg PO BEDTIME PRN PRN Reason: Insomnia Sodium Chloride (0.9 % Sodium Chloride Flush 3 Ml Syringe) 3 ml IVFLUSH QSHIFT [facility] Last Admin: 05/30/24 09:15 Dose: Not Given Home Medications ?Medication ?Instructions ?Recorded ?Confirmed ?Last Taken ?Type No Known Home Meds 05/29/24 05/29/24 Unknown History Physical Exam Vital Signs: Last Vital Signs Temp 98.3 F 05/30/24 07:19 Pulse 65 05/30/24 07:19 Resp 18 05/30/24 07:19 BP 131/76 05/30/24 07:19 Pulse Ox 97 05/30/24 07:19 O2 Del Method Room Air 05/30/24 07:19 BMI result Body Mass Index 23.5 Const General: comfortable and no acute distress Orientation/consciousness: patient oriented x3 HEENT Head: Yes normocephalic Mouth: Normal oral and palatal mucosa present Eyes EOM: EOMs intact bilaterally Neck Neck: Yes supple Resp Auscultation: clear to auscultation bilaterally Cardio Jugular venous distension: no JVD Rate: regular rate GI Palpation (GI): Soft to palpation Auscultation: normal bowel sounds Skin General skin exam: no rashes or lesions noted Neuro General: patient oriented x3 and moves all extremities Extrem General: Yes no pedal edema Results Lab Results 05/30/24 05:35 05/30/24 05:35 Lab results: Chemistry 05/29/24 05/29/24 05/30/24 12:14 17:41 05:35 Sodium 129 L 129 L 129 L Potassium 4.9 4.6 4.2 Carbon Dioxide 16 L 15 L 17 L BUN 114 H 109 H 102 H Creatinine 5.68 H* 5.10 H* 5.01 H* Calcium 9.1 8.7 8.3 L Hematology 05/29/24 05/30/24 12:14 05:35 WBC 13.4 H 12.5 H Hgb 11.5 L 10.1 L Plt Count 542 H 513 H Urinalysis 05/29/24 12:14 Urine Color PINK Urine Appearance Turbid Urine pH 5.5 Ur Specific [place] 1.010 Urine Protein 100 (2+) H Urine Glucose (UA) Negative Urine Ketones Negative Urine Blood Large (3+) H Urine Nitrite Negative Ur Leukocyte Esterase Large (3+) H Urine RBC >20 H Urine WBC >50 H Ur Squamous Epith Cells 0-2 Hyaline Casts 0-2 Urine Studies 05/29/24 12:14 Urine Osmolality 339 L Urine Creatinine 65.57 Assessment and Plan (1) Acute kidney injury superimposed on CKD: Status: Acute (2) Hypertension: Qualifiers: Hypertension type: unspecified Qualified Code(s): I10 - Essential (primary) hypertension Status: Acute Plan Likely has CKD from obstructive uropathy Has JANINA on CKD due to urinary retention Has a Salcedo. UO good; CT findings reviewed CKD labs ordered; No ACEI/ARB for now Continue current dose of Amlodipine Needs to follow up with me first week of Jun when D/Tong Procedures Date of Service Date of Service: 05/30/24
[2024-05-30] MEDS: cefTRIAXone sodium 1 GM in 0.9 % Sodium Chloride 50 ML IV (14:23)
[2024-05-30 16:00] VITALS: BP 149/74; PULSE 60; RESP 17; TEMP 36.5; O2SAT 98
[2024-05-30] MEDS: 0.9 % Sodium Chloride Flush 3 ML SYRINGE IVFLUSH (16:48)
[2024-05-30 19:45] VITALS: BP 151/75; PULSE 63; RESP 18; TEMP 36.3; O2SAT 98
[2024-05-31] MEDS: 0.9 % Sodium Chloride Flush 3 ML SYRINGE IVFLUSH ×4 (00:30→19:09)
[2024-05-31 03:47] VITALS: BP 157/73; PULSE 62; RESP 20; TEMP 36.4; O2SAT 98
[2024-05-31] MEDS: Heparin Sodium,Porcine 5,000 UNIT/ML VIAL 5000 UNIT SUBCUT ×2 (04:20→16:34)
[2024-05-31 07:11] LABS: Parathyroid Hormone Intact 194.8 pg/mL (8.7-77.1)
[2024-05-31 07:16] LABS: Anion Gap 16 (12-20); Blood Urea Nitrogen 94 mg/dL (9-16); Calcium 7.8 mg/dL (8.4-10.2); Carbon Dioxide 19 mmol/L (22-29); Chloride 98 mmol/L (96-108); Creatinine Clr Calc Pharmacy 14.4; Estimated Glomerular Filt Rate 14; Glucose Random 93 mg/dL (60-115); Phosphorus 5.3 mg/dL (2.7-4.5); Potassium 4.1 mmol/L (3.3-5.1); Sodium 129 mmol/L (135-145)
[2024-05-31 07:25] LABS: Vitamin D 25-OH Total 21.7 ng/mL (>30)
[2024-05-31 08:00] VITALS: BP 146/76; PULSE 63; RESP 18; TEMP 36.5; O2SAT 97
[2024-05-31] MEDS: Finasteride 5 MG TABLET PO (08:53)
--- NOTE | 2024-05-31 09:40 | P.PNNP_ITS ---
Subjective Subjective Date of Service: 05/31/24 Interval history: Serum creatinine improving Physical Exam 2 Vital Signs: Vital Signs: Last Vital Signs Temp 97.7 F 05/31/24 08:00 Pulse 63 05/31/24 08:00 Resp 18 05/31/24 08:00 BP 146/76 H 05/31/24 08:00 Pulse Ox 97 05/31/24 08:00 O2 Del Method Room Air 05/31/24 08:00 BMI result Body Mass Index 23.5 Const: General: comfortable and no acute distress O rientation/consciousness: patient oriented x3 HEENT: Head: Yes normocephalic Mouth: Normal oral and palatal mucosa present Eyes: EOM: EOMs intact bilaterally Neck: Neck: Yes supple Resp: Auscultation: clear to auscultation bilaterally Cardio: Jugular venous distension: no JVD Rate: regular rate GI: Palpation (GI): Soft to palpation Auscultation: normal bowel sounds : General: Yes no CVA tenderness Back/Spine/Pelvis: Back: no CVA tenderness Skin: General skin exam: no rashes or lesions noted Neuro: General: patient oriented x3 and moves all extremities Extrem: General: Yes no pedal edema Objective Data Labs 05/30/24 05:35 05/31/24 05:31 Labs: Laboratory Results - last 24 hr 05/31/24 05:31 Sodium 129 L Potassium 4.1 Chloride 98 Carbon Dioxide 19 L Anion Gap 16 BUN 94 H Creatinine 4.18 H* Estim Creat Clear Calc 14.4 Estimated GFR 14 Random Glucose 93 Calcium 7.8 L D Phosphorus 5.3 H 25-OH Vitamin D Total 21.7 L PTH Intact 194.8 H Microbiology Microbiology Results: Microbiology 05/29/24 17:41 Blood - Venous Blood Culture - Preliminary No growth after 24 hours. 05/29/24 17:41 Blood - Venous Blood Culture - Preliminary No growth after 24 hours. 05/29/24 Unknown Urine clean catch - Clean Catch Midstream Urine Culture - Preliminary Culture in progress. 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 UO good; CT findings reviewed No ACEI/ARB for now; Amlodipine 10 mg daily PO Needs to follow up with me first week of Sep when D/Tong Progress Note: Quality Stroke Does the patient have a stroke diagnosis?: No
--- NOTE | 2024-05-31 09:46 | P.PNIM_ITS ---
Subjective Subjective Date of Service: 05/31/24 Review of Systems Follow up bladder outlet obstruction feels good no pain or nausea Physical Exam 2 Vital Signs: Vital Signs: Last Vital Signs Temp 97.7 F 05/31/24 08:00 Pulse 63 05/31/24 08:00 Resp 18 05/31/24 08:00 BP 146/76 H 05/31/24 08:00 Pulse Ox 97 05/31/24 08:00 O2 Del Method Room Air 05/31/24 08:00 BMI result Body Mass Index 23.5 Appearing in no acute distress lung sounds are clear to auscultation heart regular rate rhythm, clear S1, S2 positive bowel sounds, abdomen is soft, nontender neuro patient is alert x3, no focal deficits Objective Data Active Medications Acetaminophen (Acetaminophen 325 Mg Tablet) 650 mg PO Q6H PRN PRN Reason: Pain, Mild (Pain Scale 1-3), fever or headache Calcium Carbonate (Calcium Carbonate 750 Mg Tab.Chew) 750 mg PO Q4H PRN PRN Reason: Heartburn Finasteride (Finasteride 5 Mg Tablet) 5 mg PO DAILY [facility] Last Admin: 05/31/24 08:53 Dose: 5 mg Documented By: DEL Heparin Sodium (Porcine) (Heparin Sodium,Porcine 5,000 Unit/Ml Vial) 5,000 unit SUBCUT Q12H [facility] Last Admin: 05/31/24 04:20 Dose: 5,000 unit Documented By: HEIDY Hydralazine HCl (Hydralazine Hcl 20 Mg/Ml Vial) 5 mg IVPUSH Q6H PRN; Protocol PRN Reason: SBP>190 Ceftriaxone Sodium 1 gm/ (Sodium Chloride) 50 mls @ 100 mls/hr IV Q24H [facility] Last Infusion: 05/30/24 15:08 Dose: Infused Documented By: TIMOTHY Magnesium Hydroxide (Milk Of Magnesia 30 Ml Oral.Susp) 30 ml PO DAILY PRN PRN Reason: Constipation Melatonin (Melatonin 3 Mg Tablet) 6 mg PO BEDTIME PRN PRN Reason: Insomnia Sodium Chloride (0.9 % Sodium Chloride Flush 3 Ml Syringe) 3 ml IVFLUSH QSHIFT [facility] Last Admin: 05/31/24 08:53 Dose: 3 ml Documented By: DEL Labs 05/30/24 05:35 05/31/24 05:31 Labs: Laboratory Results - last 24 hr 05/31/24 05:31 Anion Gap 16 Estim Creat Clear Calc 14.4 Estimated GFR 14 Random Glucose 93 Calcium 7.8 L D Phosphorus 5.3 H 25-OH Vitamin D Total 21.7 L PTH Intact 194.8 H Microbiology Microbiology Results: Microbiology 05/29/24 17:41 Blood Culture - Preliminary Blood - Venous No growth after 24 hours. 05/29/24 17:41 Blood Culture - Preliminary Blood - Venous No growth after 24 hours. 05/29/24 Unknown Urine Culture - Preliminary Urine clean catch - Clean Catch Midstream Culture in progress. Assessment and Plan (1) Enlarged prostate with urinary obstruction: Status: Acute (2) Bladder outlet obstruction: Status: Acute Plan 74-year-old man admitted with JANINA secondary to bladder outlet obstruction, patient has not been to pcp or hospital for more than 10 years Bladder outlet obstruction Secondary to prostatomegaly Salcedo catheter placed and draining Monitor output closely Urology following. Plan, oley to remain in place at dc and follow up with urology o/p 2 week, finesteride added Urinary tract infection Likely secondary to bladder outlet obstruction continue IV Rocephin Follow cultures JANINA Unknown baseline Creatinine slowly trending down, today 4.18 secondary to bladder outlet obstruction Salcedo catheter Follow creatinine closely Nephrology>Keep one more day and dc if creat same or better, follow up o/p in june Anion gap metabolic acidosis Likely secondary to urinary retention Treat as above Hyponatremia likely secondary to bladder outlet obstruction and JANINA follow BMP Elevated blood pressure reading. Trending down No history of hypertension and not on any medications amlodipine 10 mg daily added DVT prophylaxis with heparin attending Dr. Meredith Full code Quality Stroke Does the patient have a stroke diagnosis?: No VTE Prior VTE?: No VTE Risk Level:: Medical - moderate - high VTE Device Contraindication: N/A - Device Ordered VTE Drug Contraindication: N/A - Med Ordered
[2024-05-31 11:18] VITALS: BP 145/70
[2024-05-31] MEDS: amLODIPine Besylate 10 MG TABLET PO (11:18)
--- NOTE | 2024-05-31 12:41 | P.CDIM_ITS ---
PROVIDER RESPONSE TEXT: To clarify, the appropriate diagnosis supported by the clinical indicators: Clinically unable to determine (explain): unknown baseline QUERY TEXT: PHYSICIAN'S DOCUMENTATION REQUEST Date of Query: 05/31/2024 10:54 AM EDT Patient Name: Brandon Morocho Admit Date: 05/29/2024 Dear Leticia Patterson [employer] WORKER, A review of the medical record indicates additional documentation may be needed. Please review below and update the documentation accordingly. 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 Please use your independent medical judgment in providing your response. THIS QUERY IS PART OF THE PERMANENT MEDICAL RECORD
[2024-05-31] MEDS: cefTRIAXone sodium 1 GM in 0.9 % Sodium Chloride 50 ML IV (14:04)
[2024-05-31 16:03] VITALS: BP 169/77; PULSE 65; RESP 18; TEMP 36.1; O2SAT 98
[2024-05-31 20:00] VITALS: BP 141/74; PULSE 64; RESP 15; TEMP 36.5; O2SAT 98
[2024-06-01 04:00] VITALS: BP 131/77; PULSE 68; RESP 16; TEMP 36.8; O2SAT 98
--- NOTE | 2024-06-01 05:24 | PC.NURSE ---
pink tinged urine noted this morning again in F/C md aware
[2024-06-01] MEDS: Heparin Sodium,Porcine 5,000 UNIT/ML VIAL 5000 UNIT SUBCUT ×2 (05:46→16:06)
[2024-06-01 06:37] LABS: Anion Gap 17 (12-20); Blood Urea Nitrogen 87 mg/dL (9-16); Calcium 7.9 mg/dL (8.4-10.2); Carbon Dioxide 17 mmol/L (22-29); Chloride 98 mmol/L (96-108); Creatinine Clr Calc Pharmacy 15.7; Estimated Glomerular Filt Rate 16; Glucose Random 101 mg/dL (60-115); Potassium 3.9 mmol/L (3.3-5.1); Sodium 128 mmol/L (135-145)
[2024-06-01 08:00] VITALS: BP 144/77; PULSE 65; RESP 18; TEMP 36.5; O2SAT 97
[2024-06-01] MEDS: 0.9 % Sodium Chloride Flush 3 ML SYRINGE IVFLUSH ×2 (08:30→13:29)
[2024-06-01] MEDS: Finasteride 5 MG TABLET PO (08:31)
[2024-06-01] MEDS: amLODIPine Besylate 10 MG TABLET PO (08:31)
--- NOTE | 2024-06-01 08:36 | P.PNNP_ITS ---
Subjective Subjective Date of Service: 06/01/24 Interval history: Serum creatinine improving Physical Exam 2 Vital Signs: Vital Signs: Last Vital Signs Temp 97.7 F 06/01/24 08:00 Pulse 65 06/01/24 08:00 Resp 18 06/01/24 08:00 BP 144/77 H 06/01/24 08:00 Pulse Ox 97 06/01/24 08:00 O2 Del Method Room Air 06/01/24 08:00 BMI result Body Mass Index 23.5 Const: General: comfortable and no acute distress O rientation/consciousness: patient oriented x3 HEENT: Head: Yes normocephalic Mouth: Normal oral and palatal mucosa present Eyes: EOM: EOMs intact bilaterally Neck: Neck: Yes supple Resp: Auscultation: clear to auscultation bilaterally Cardio: Jugular venous distension: no JVD Rate: regular rate GI: Palpation (GI): Soft to palpation Auscultation: normal bowel sounds : General: Yes no CVA tenderness Back/Spine/Pelvis: Back: no CVA tenderness Skin: General skin exam: no rashes or lesions noted Neuro: General: patient oriented x3 and moves all extremities Extrem: General: Yes no pedal edema Objective Data Labs 05/30/24 05:35 06/01/24 05:37 Labs: Laboratory Results - last 24 hr 06/01/24 05:37 Hold Purple Top SEE NOTE Sodium 128 L Potassium 3.9 Chloride 98 Carbon Dioxide 17 L Anion Gap 17 BUN 87 H Creatinine 3.83 H Estim Creat Clear Calc 15.7 Estimated GFR 16 Random Glucose 101 Calcium 7.9 L Microbiology Microbiology Results: Microbiology 05/29/24 Unknown Urine clean catch - Clean Catch Midstream Urine Culture - Final Enterobacter cloacae complex 05/29/24 17:41 Blood - Venous Blood Culture - Preliminary No growth after 48 hours. 05/29/24 17:41 Blood - Venous Blood Culture - Preliminary No growth after 48 hours. 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 UO good; CT findings reviewed No ACEI/ARB for now; Amlodipine 10 mg daily PO started Needs to follow up with me first week of Sep when D/Tong Progress Note: Quality Stroke Does the patient have a stroke diagnosis?: No
--- NOTE | 2024-06-01 10:44 | PC.NURSE ---
NA 128 PA Tasneem notified
[2024-06-01] MEDS: cefTRIAXone sodium 1 GM in 0.9 % Sodium Chloride 50 ML IV (13:30)
--- NOTE | 2024-06-01 14:43 | P.PNIM_ITS ---
Subjective Subjective Date of Service: 06/01/24 Interval History: Seen and examined this morning Follow-up for obstructive uropathy, hydronephrosis, JANINA No overnight events No specific complaints, no abdominal pain Review of Systems Review of Systems: Yes all other systems are reviewed and are negative Constitutional Constitutional: Denies chills and Denies fever(s) Cardiovascular Cardiovascular: Denies chest pain, Denies palpitations and Denies dyspnea Respiratory Respiratory: Denies cough and Denies dyspnea Endocrine Endocrine: Denies palpitations Physical Exam 2 Vital Signs: Vital Signs: Last Vital Signs Temp 97.7 F 06/01/24 08:00 Pulse 65 06/01/24 08:00 Resp 18 06/01/24 08:00 BP 144/77 H 06/01/24 08:00 Pulse Ox 97 06/01/24 08:00 O2 Del Method Room Air 06/01/24 08:00 BMI result Body Mass Index 23.5 Const: General: cooperative, comfortable, no acute distress, alert and awake Nutritional Appearance: average body habitus Orientation/consciousness: p atient oriented x3 Resp: Effort & Inspection: normal respiratory effort and able to speak in complete sentences Cardio: Rate: regular rate GI: Palpation (GI): Soft to palpation : Other: Cortes in place Neuro: Other: Grossly nonfocal General: patient oriented x3 Extrem: General: Yes no pedal edema Objective Data Active Medications Acetaminophen (Acetaminophen 325 Mg Tablet) 650 mg PO Q6H PRN PRN Reason: Pain, Mild (Pain Scale 1-3), fever or headache Amlodipine Besylate (Amlodipine Besylate 10 Mg Tablet) 10 mg PO DAILY [facility]; Protocol Last Admin: 06/01/24 08:31 Dose: 10 mg Documented By: SUNIL Calcium Carbonate (Calcium Carbonate 750 Mg Tab.Chew) 750 mg PO Q4H PRN PRN Reason: Heartburn Finasteride (Finasteride 5 Mg Tablet) 5 mg PO DAILY [facility] Last Admin: 06/01/24 08:31 Dose: 5 mg Documented By: SUNIL Heparin Sodium (Porcine) (Heparin Sodium,Porcine 5,000 Unit/Ml Vial) 5,000 unit SUBCUT Q12H [facility] Last Admin: 06/01/24 05:46 Dose: 5,000 unit Documented By: HEIDY Comments: was waiting for md approval Hydralazine HCl (Hydralazine Hcl 20 Mg/Ml Vial) 5 mg IVPUSH Q6H PRN; Protocol PRN Reason: SBP>190 Ceftriaxone Sodium 1 gm/ (Sodium Chloride) 50 mls @ 100 mls/hr IV Q24H [facility] Last Infusion: 06/01/24 14:25 Dose: Infused Documented By: SUNIL Magnesium Hydroxide (Milk Of Magnesia 30 Ml Oral.Susp) 30 ml PO DAILY PRN PRN Reason: Constipation Melatonin (Melatonin 3 Mg Tablet) 6 mg PO BEDTIME PRN PRN Reason: Insomnia Sodium Chloride (0.9 % Sodium Chloride Flush 3 Ml Syringe) 3 ml IVFLUSH QSHIFT [facility] Last Admin: 06/01/24 13:29 Dose: 3 ml Documented By: SUNIL Labs 05/30/24 05:35 06/01/24 05:37 Labs: Laboratory Results - last 24 hr 06/01/24 05:37 Hold Purple Top SEE NOTE Anion Gap 17 Estim Creat Clear Calc 15.7 Estimated GFR 16 Random Glucose 101 Calcium 7.9 L Microbiology Microbiology Results: Microbiology 05/29/24 Unknown Urine Culture - Final Urine clean catch - Clean Catch Midstream Enterobacter cloacae complex 05/29/24 17:41 Blood Culture - Preliminary Blood - Venous No growth after 48 hours. 05/29/24 17:41 Blood Culture - Preliminary Blood - Venous No growth after 48 hours. Assessment and Plan (1) Acute kidney injury superimposed on CKD: Status: Acute (2) Enlarged prostate with urinary obstruction: Status: Acute Plan 74-year-old man admitted with JANINA secondary to bladder outlet obstruction, patient has not been to pcp or hospital for more than 10 years Bladder outlet obstruction Secondary to prostatomegaly Cortes catheter placed and draining Monitor output closely Urology following. Plan for cortes to remain in place at mo and follow up with urology o/p 2 week, justa, macrina added per urology recommendation Repeat renal ultrasound pending to evaluate for resolution of hydronephrosis Urinary tract infection Likely secondary to bladder outlet obstruction Urine culture growing Enterobacter cloacae Has been treated IV ceftriaxone,will change IV levofloxacin Follow cultures JANINA Unknown baseline Creatinine slowly trending down, today 3.83 secondary to bladder outlet obstruction Cortes catheter Follow creatinine closely Nephrology> will need outpatient follow-up Anion gap metabolic acidosis due to JANINA Treat as above Hyponatremia likely secondary to bladder outlet obstruction and JANINA follow BMP Elevated blood pressure reading. Trending down No history of hypertension and not on any medications amlodipine 10 mg daily added DVT prophylaxis with heparin attending Dr. Meredith Full code Quality Stroke Does the patient have a stroke diagnosis?: No VTE Prior VTE?: No VTE Risk Level:: Medical - moderate - high VTE Device Contraindication: N/A - Device Ordered VTE Drug Contraindication: N/A - Med Ordered
[2024-06-01 15:24] VITALS: BP 161/77; PULSE 65; RESP 20; TEMP 36.4; O2SAT 99
[2024-06-01] MEDS: levoFLOXacin/D5W 500 MG/100 ML PIGGYBACK 100 MG IV (16:05)
[2024-06-01] MEDS: Doxazosin Mesylate 1 MG TABLET PO (19:22)
[2024-06-01 19:29] VITALS: BP 144/70; PULSE 69; RESP 20; TEMP 36.7; O2SAT 98
[2024-06-02] MEDS: 0.9 % Sodium Chloride Flush 3 ML SYRINGE IVFLUSH ×4 (01:47→21:24)
[2024-06-02 03:27] VITALS: BP 129/73; PULSE 69; RESP 16; TEMP 36.1; O2SAT 97
[2024-06-02] MEDS: Heparin Sodium,Porcine 5,000 UNIT/ML VIAL 5000 UNIT SUBCUT ×2 (03:49→15:01)
[2024-06-02 06:40] LABS: Anion Gap 18 (12-20); Blood Urea Nitrogen 77 mg/dL (9-16); Calcium 8.3 mg/dL (8.4-10.2); Carbon Dioxide 17 mmol/L (22-29); Chloride 96 mmol/L (96-108); Creatinine Clr Calc Pharmacy 15.2; Estimated Glomerular Filt Rate 15; Glucose Random 98 mg/dL (60-115); Potassium 4.3 mmol/L (3.3-5.1); Sodium 127 mmol/L (135-145)
--- NOTE | 2024-06-02 06:46 | PC.NURSE ---
This medical writer assumed care of this patient at 23:00. Please see shift assessments and tasks for full details. Handoff report given.
[2024-06-02 07:35] VITALS: BP 132/74; PULSE 66; RESP 16; TEMP 36.3; O2SAT 96
[2024-06-02] MEDS: Finasteride 5 MG TABLET PO (07:38)
[2024-06-02] MEDS: amLODIPine Besylate 10 MG TABLET PO (07:39)
--- NOTE | 2024-06-02 12:44 | MHC.CM.PN ---
Per MD rounds no dc today. Patient is schedule for a surgical intervention on Wednesday06/05/24. plans stent insertion. DP home self care. Patient will arrange for transport home.
--- NOTE | 2024-06-02 14:46 | HO.PM.IMPN ---
Subjective Subjective Date of Service: 06/02/24 Interval History: Seen and examined this morning Follow-up for obstruction no overnight. No specific complaints. No abdominal pain nausea, diarrhea. Tolerating diet Review of Systems Review of Systems: Yes all other systems are reviewed and are negative Constitutional Constitutional: Denies chills and Denies fever(s) Cardiovascular Cardiovascular: Denies chest pain and Denies palpitations Endocrine Endocrine: Denies palpitations Physical Exam Vital Signs: Vital Signs: Last Vital Signs Temp 97.3 F 06/02/24 07:35 Pulse 66 06/02/24 07:35 Resp 16 06/02/24 07:35 BP 132/74 06/02/24 07:35 Pulse Ox 96 06/02/24 07:35 O2 Del Method Room Air 06/02/24 07:35 BMI result Body Mass Index 23.5 Const: General: cooperative, comfortable, no acute distress, alert and awake Nutritional Appearance: average body habitus Orientation/consciousness: patient oriented x3 Resp: Effort & Inspection: normal respiratory effort and able to speak in complete sentences Cardio: Rate: regular rate GI: Inspection: No distended Palpation (GI): Soft to palpation : Other: Cortes in place Neuro: Other: Grossly nonfocal General: patient oriented x3 Extrem: General: Yes no pedal edema Objective Data Active Medications Acetaminophen (Acetaminophen 325 Mg Tablet) 650 mg PO Q6H PRN PRN Reason: Pain, Mild (Pain Scale 1-3), fever or headache Amlodipine Besylate (Amlodipine Besylate 10 Mg Tablet) 10 mg PO DAILY [facility]; Protocol Last Admin: 06/02/24 07:39 Dose: 10 mg Documented By: SUNIL Calcium Carbonate (Calcium Carbonate 750 Mg Tab.Chew) 750 mg PO Q4H PRN PRN Reason: Heartburn Doxazosin Mesylate (Doxazosin Mesylate 1 Mg Tablet) 1 mg PO BEDTIME [facility]; Protocol Last Admin: 06/01/24 19:22 Dose: 1 mg Documented By: MALI Finasteride (Finasteride 5 Mg Tablet) 5 mg PO DAILY [facility] Last Admin: 06/02/24 07:38 Dose: 5 mg Documented By: SUNIL Heparin Sodium (Porcine) (Heparin Sodium,Porcine 5,000 Unit/Ml Vial) 5,000 unit SUBCUT Q12H [facility] Last Admin: 06/02/24 03:49 Dose: 5,000 unit Documented By: PIA Hydralazine HCl (Hydralazine Hcl 20 Mg/Ml Vial) 5 mg IVPUSH Q6H PRN; Protocol PRN Reason: SBP>190 Levofloxacin (Levaquin) 500 mg in 100 mls @ 100 mls/hr IV Q48H [facility] Last Infusion: 06/01/24 17:09 Dose: Infused Documented By: SUNIL Magnesium Hydroxide (Milk Of Magnesia 30 Ml Oral.Susp) 30 ml PO DAILY PRN PRN Reason: Constipation Melatonin (Melatonin 3 Mg Tablet) 6 mg PO BEDTIME PRN PRN Reason: Insomnia Sodium Chloride (0.9 % Sodium Chloride Flush 3 Ml Syringe) 3 ml IVFLUSH QSHIFT [facility] Last Admin: 06/02/24 07:39 Dose: 3 ml Documented By: SUNIL Labs 05/30/24 05:35 06/02/24 05:34 Labs: Laboratory Results - last 24 hr 06/02/24 05:34 Hold Purple Top SEE NOTE Anion Gap 18 Estim Creat Clear Calc 15.2 Estimated GFR 15 Random Glucose 98 Calcium 8.3 L Assessment and Plan (1) Acute kidney injury superimposed on CKD: Status: Acute (2) Enlarged prostate with urinary obstruction: Status: Acute (3) Urinary tract infection: Status: Acute Plan 74-year-old man admitted with JANINA secondary to bladder outlet obstruction, patient has not been to pcp or hospital for more than 10 years Bladder outlet obstruction Secondary to prostatomegaly Cortes catheter placed and draining Urology following. Plan for cortes to remain in place at [place] and follow up with urology o/p 2 week, macrina marr added per urology recommendation Repeat renal ultrasound showing persistent b/l hydronephrosis, plan for stenting on Wednesday, NPO wednesday night Urinary tract infection Likely secondary to bladder outlet obstruction Urine culture growing Enterobacter cloacae change IV levofloxacin 06/01 (renal dosing) Blood cultures negative JANINA Unknown baseline Creatinine slowly trending down, today 3.94 secondary to bladder outlet obstruction Cortes catheter in place Follow creatinine closely Nephrology> will need outpatient follow-up Anion gap metabolic acidosis due to JANINA Treat as above Hyponatremia secondary to bladder outlet obstruction and JANINA nephrology following follow BMP Elevated blood pressure reading. Trending down No history of hypertension and not on any medications amlodipine 10 mg daily added DVT prophylaxis with heparin attending Dr. Meredith Full code Requires ongoing inpatient stay for close monitoring of kidney function, sodium levels and need for bilateral ureteral stent placement Quality Stroke Does the patient have a stroke diagnosis?: No VTE Prior VTE?: No VTE Risk Level:: Medical - moderate - high VTE Device Contraindication: N/A - Device Ordered VTE Drug Contraindication: N/A - Med Ordered
--- NOTE | 2024-06-02 15:04 | PC.NURSE ---
NA 127 ,MAAME galloway
[2024-06-02 15:27] VITALS: BP 126/68; PULSE 65; RESP 18; TEMP 36.4; O2SAT 100
--- NOTE | 2024-06-02 18:47 | PM.PNNEP ---
Subjective Subjective Date of Service: 06/02/24 Interval history: No specific complaints. No abdominal pain nausea, diarrhea. Tolerating diet Physical Exam Vital Signs: Vital Signs: Last Vital Signs Temp 97.5 F 06/02/24 15:27 Pulse 65 06/02/24 15:27 Resp 18 06/02/24 15:27 BP 126/68 06/02/24 15:27 Pulse Ox 100 06/02/24 15:27 O2 Del Method Room Air 06/02/24 15:27 BMI result Body Mass Index 23.5 Const: General: comfortable Orientation/consciousness: patient oriented x3 Eyes: EOM: EOMs intact bilaterally Neck: Neck: Yes supple Resp: Auscultation: diminished lung sounds Cardio: Rate: regular rate GI: Palpation (GI): Soft to palpation Neuro: General: patient oriented x3 Extrem: General: Yes no pedal edema Objective Data Labs 05/30/24 05:35 06/02/24 05:34 Labs: Laboratory Results - last 24 hr 06/02/24 05:34 Hold Purple Top SEE NOTE Sodium 127 L Potassium 4.3 Chloride 96 Carbon Dioxide 17 L Anion Gap 18 BUN 77 H Creatinine 3.94 H Estim Creat Clear Calc 15.2 Estimated GFR 15 Random Glucose 98 Calcium 8.3 L Microbiology Microbiology Results: Microbiology 05/29/24 Unknown Urine clean catch - Clean Catch Midstream Urine Culture - Final Enterobacter cloacae complex 05/29/24 17:41 Blood - Venous Blood Culture - Preliminary No growth after 48 hours. 05/29/24 17:41 Blood - Venous Blood Culture - Preliminary No growth after 48 hours. 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 UO good; CT findings reviewed; F/U [facility]- B/L [place] No ACEI/ARB for now; Amlodipine 10 mg daily; For stenting Wednesday Needs to follow up with me first week of Sep when D/Tong Progress Note: Quality Stroke Does the patient have a stroke diagnosis?: No
[2024-06-02 19:33] VITALS: BP 133/72; PULSE 66; RESP 20; TEMP 36.4; O2SAT 98
[2024-06-02] MEDS: Doxazosin Mesylate 1 MG TABLET PO (21:24)
[2024-06-03 04:00] VITALS: BP 113/64; PULSE 80; RESP 20; TEMP 36.2; O2SAT 93
[2024-06-03] MEDS: Heparin Sodium,Porcine 5,000 UNIT/ML VIAL 5000 UNIT SUBCUT ×2 (05:15→16:09)
[2024-06-03 07:30] VITALS: BP 127/73; PULSE 67; RESP 18; TEMP 36.6; O2SAT 96
[2024-06-03] MEDS: Finasteride 5 MG TABLET PO (08:08)
[2024-06-03] MEDS: amLODIPine Besylate 10 MG TABLET PO (08:08)
[2024-06-03] MEDS: Milk of Magnesia 30 ML ORAL.SUSP PO (08:09)
[2024-06-03] MEDS: 0.9 % Sodium Chloride Flush 3 ML SYRINGE IVFLUSH ×3 (08:09→21:02)
--- NOTE | 2024-06-03 08:32 | HO.PM.IMPN ---
Subjective Subjective Date of Service: 06/03/24 Interval History: Seen and examined this morning Follow-up for obstruction no overnight. No specific complaints. No abdominal pain nausea, diarrhea. Tolerating diet Review of Systems Review of Systems: Yes all other systems are reviewed and are negative Constitutional Constitutional: Denies chills and Denies fever(s) Cardiovascular Cardiovascular: Denies chest pain and Denies palpitations Endocrine Endocrine: Denies palpitations Physical Exam Vital Signs: Vital Signs: Last Vital Signs Temp 97.8 F 06/03/24 07:30 Pulse 67 06/03/24 07:30 Resp 18 06/03/24 07:30 BP 127/73 06/03/24 07:30 Pulse Ox 96 06/03/24 07:30 O2 Del Method Room Air 06/03/24 07:30 BMI result Body Mass Index 23.5 Appearing in no acute distress neck is supple no lymphadenopathy, no JVD noted lung sounds are clear to auscultation heart regular rate rhythm, clear S1, S2 positive bowel sounds, abdomen is soft, nontender neuro patient is alert x3, no focal deficits Objective Data Active Medications Acetaminophen (Acetaminophen 325 Mg Tablet) 650 mg PO Q6H PRN PRN Reason: Pain, Mild (Pain Scale 1-3), fever or headache Amlodipine Besylate (Amlodipine Besylate 10 Mg Tablet) 10 mg PO DAILY [facility]; Protocol Last Admin: 06/03/24 08:08 Dose: 10 mg Documented By: MARIA L Calcium Carbonate (Calcium Carbonate 750 Mg Tab.Chew) 750 mg PO Q4H PRN PRN Reason: Heartburn Doxazosin Mesylate (Doxazosin Mesylate 1 Mg Tablet) 1 mg PO BEDTIME [facility]; Protocol Last Admin: 06/02/24 21:24 Dose: 1 mg Documented By: SARIKA Finasteride (Finasteride 5 Mg Tablet) 5 mg PO DAILY [facility] Last Admin: 06/03/24 08:08 Dose: 5 mg Documented By: MARIA L Heparin Sodium (Porcine) (Heparin Sodium,Porcine 5,000 Unit/Ml Vial) 5,000 unit SUBCUT Q12H [facility] Last Admin: 06/03/24 05:15 Dose: 5,000 unit Documented By: SARIKA Hydralazine HCl (Hydralazine Hcl 20 Mg/Ml Vial) 5 mg IVPUSH Q6H PRN; Protocol PRN Reason: SBP>190 Levofloxacin (Levaquin) 500 mg in 100 mls @ 100 mls/hr IV Q48H [facility] Last Infusion: 06/01/24 17:09 Dose: Infused Documented By: SUNIL Magnesium Hydroxide (Milk Of Magnesia 30 Ml Oral.Susp) 30 ml PO DAILY PRN PRN Reason: Constipation Last Admin: 06/03/24 08:09 Dose: 30 ml Documented By: MARIA L Melatonin (Melatonin 3 Mg Tablet) 6 mg PO BEDTIME PRN PRN Reason: Insomnia Sodium Chloride (0.9 % Sodium Chloride Flush 3 Ml Syringe) 3 ml IVFLUSH QSHIFT [facility] Last Admin: 06/03/24 08:09 Dose: 3 ml Documented By: MARIA L Labs 05/30/24 05:35 06/02/24 05:34 Assessment and Plan (1) Acute kidney injury superimposed on CKD: Status: Acute (2) Enlarged prostate with urinary obstruction: Status: Acute (3) Urinary tract infection: Status: Acute Plan 74-year-old man admitted with JANINA secondary to bladder outlet obstruction, patient has not been to pcp or hospital for more than 10 years Constipation add senna and colace Bladder outlet obstruction Secondary to prostatomegaly Cortes catheter placed and draining Urology following. Plan for cortes to remain in place at ct and follow up with urology o/p 2 week, macrina marr added per urology recommendation Repeat renal ultrasound showing persistent b/l hydronephrosis, plan for stenting on Wednesday, NPO wednesday night Urinary tract infection Likely secondary to bladder outlet obstruction Urine culture growing Enterobacter cloacae change IV levofloxacin 06/01 (renal dosing) Blood cultures negative JANINA Unknown baseline Creatinine slowly trending down, today 3.94 secondary to bladder outlet obstruction Cortes catheter in place Follow creatinine closely Nephrology> will need outpatient follow-up Anion gap metabolic acidosis due to JANINA Treat as above Hyponatremia secondary to bladder outlet obstruction and JANINA nephrology following follow BMP Elevated blood pressure reading. Trending down No history of hypertension and not on any medications amlodipine 10 mg daily added DVT prophylaxis with heparin attending Dr. Scott Full code Requires ongoing inpatient stay for close monitoring of kidney function, sodium levels and need for bilateral ureteral stent placement Quality Stroke Does the patient have a stroke diagnosis?: No VTE Prior VTE?: No VTE Risk Level:: Medical - moderate - high VTE Device Contraindication: N/A - Device Ordered VTE Drug Contraindication: N/A - Med Ordered
[2024-06-03] MEDS: Sennosides 8.6 MG TABLET PO (10:10)
[2024-06-03] MEDS: Docusate Sodium 100 MG CAPSULE PO ×2 (10:10→21:01)
[2024-06-03 15:38] VITALS: BP 111/65; PULSE 73; RESP 17; TEMP 36.6; O2SAT 98
[2024-06-03] MEDS: levoFLOXacin/D5W 500 MG/100 ML PIGGYBACK 100 MG IV (16:09)
[2024-06-03 19:35] VITALS: BP 143/73; PULSE 72; RESP 20; TEMP 36.1; O2SAT 98
[2024-06-03 21:00] VITALS: BP 143/73
[2024-06-03] MEDS: Doxazosin Mesylate 1 MG TABLET PO (21:00)
[2024-06-04 04:00] VITALS: BP 123/71; PULSE 71; RESP 20; TEMP 36.4; O2SAT 98
[2024-06-04] MEDS: Heparin Sodium,Porcine 5,000 UNIT/ML VIAL 5000 UNIT SUBCUT ×2 (04:04→16:03)
[2024-06-04 06:46] LABS: Anion Gap 18 (12-20); Blood Urea Nitrogen 97 mg/dL (9-16); Calcium 8.6 mg/dL (8.4-10.2); Carbon Dioxide 19 mmol/L (22-29); Chloride 94 mmol/L (96-108); Glucose Random 104 mg/dL (60-115); Sodium 127 mmol/L (135-145)
[2024-06-04 07:17] LABS: Creatinine Clr Calc Pharmacy 13.7; Estimated Glomerular Filt Rate 13
--- NOTE | 2024-06-04 09:48 | HO.PM.IMPN ---
Subjective Subjective Date of Service: 06/04/24 Interval History: Seen and examined this morning Follow-up for obstruction no overnight. No specific complaints. No abdominal pain nausea, diarrhea. Tolerating diet Review of Systems Review of Systems: Yes all other systems are reviewed and are negative Constitutional Constitutional: Denies chills and Denies fever(s) Cardiovascular Cardiovascular: Denies chest pain and Denies palpitations Endocrine Endocrine: Denies palpitations Physical Exam Vital Signs: Vital Signs: Last Vital Signs Temp 97.6 F 06/04/24 04:00 Pulse 71 06/04/24 04:00 Resp 20 06/04/24 04:00 BP 123/71 06/04/24 04:00 Pulse Ox 98 06/04/24 04:00 O2 Del Method Room Air 06/04/24 04:00 BMI result Body Mass Index 23.5 Appearing in no acute distress LSCTA heart regular rate rhythm, clear S1, S2 positive bowel sounds, abdomen is soft, nontender neuro patient is alert x3, no focal deficits Objective Data Active Medications Acetaminophen (Acetaminophen 325 Mg Tablet) 650 mg PO Q6H PRN PRN Reason: Pain, Mild (Pain Scale 1-3), fever or headache Amlodipine Besylate (Amlodipine Besylate 10 Mg Tablet) 10 mg PO DAILY [facility]; Protocol Last Admin: 06/03/24 08:08 Dose: 10 mg Documented By: MARIA L Calcium Carbonate (Calcium Carbonate 750 Mg Tab.Chew) 750 mg PO Q4H PRN PRN Reason: Heartburn Docusate Sodium (Docusate Sodium 100 Mg Capsule) 100 mg PO BID [facility] Last Admin: 06/03/24 21:01 Dose: 100 mg Documented By: DEYSI Doxazosin Mesylate (Doxazosin Mesylate 1 Mg Tablet) 1 mg PO BEDTIME [facility]; Protocol Last Admin: 06/03/24 21:00 Dose: 1 mg Documented By: DEYSI Finasteride (Finasteride 5 Mg Tablet) 5 mg PO DAILY [facility] Last Admin: 06/03/24 08:08 Dose: 5 mg Documented By: MARIA L Heparin Sodium (Porcine) (Heparin Sodium,Porcine 5,000 Unit/Ml Vial) 5,000 unit SUBCUT Q12H [facility] Last Admin: 06/04/24 04:04 Dose: 5,000 unit Documented By: DEYSI Hydralazine HCl (Hydralazine Hcl 20 Mg/Ml Vial) 5 mg IVPUSH Q6H PRN; Protocol PRN Reason: SBP>190 Levofloxacin (Levaquin) 500 mg in 100 mls @ 100 mls/hr IV Q48H [facility] Last Infusion: 06/03/24 17:17 Dose: Infused Documented By: MARIA L Magnesium Hydroxide (Milk Of Magnesia 30 Ml Oral.Susp) 30 ml PO DAILY PRN PRN Reason: Constipation Last Admin: 06/03/24 08:09 Dose: 30 ml Documented By: MARIA L Melatonin (Melatonin 3 Mg Tablet) 6 mg PO BEDTIME PRN PRN Reason: Insomnia Senna (Sennosides 8.6 Mg Tablet) 8.6 mg PO DAILY [facility] Last Admin: 06/03/24 10:10 Dose: 8.6 mg Documented By: MARIA L Sodium Chloride (0.9 % Sodium Chloride Flush 3 Ml Syringe) 3 ml IVFLUSH QSHIFT [facility] Last Admin: 06/03/24 21:02 Dose: 3 ml Documented By: DEYSI Labs 05/30/24 05:35 06/04/24 05:32 Labs: Laboratory Results - last 24 hr 06/04/24 05:32 Anion Gap 18 Estim Creat Clear Calc 13.7 Estimated GFR 13 Random Glucose 104 Calcium 8.6 Microbiology Microbiology Results: Microbiology 05/29/24 17:41 Blood Culture - Final Blood - Venous No growth after 5 days. 05/29/24 17:41 Blood Culture - Final Blood - Venous No growth after 5 days. Assessment and Plan (1) Acute kidney injury superimposed on CKD: Status: Acute (2) Enlarged prostate with urinary obstruction: Status: Acute (3) Urinary tract infection: Status: Acute Plan 74-year-old man admitted with JANINA secondary to bladder outlet obstruction, patient has not been to pcp or hospital for more than 10 years Bladder outlet obstruction Secondary to prostatomegaly Cortes catheter placed and draining Urology following. Plan for cortes to remain in place at [facility] and follow up with urology o/p 2 week, finesteride, cardura added per urology recommendation Repeat renal ultrasound showing persistent b/l hydronephrosis, plan for stenting tomorrow, npo after midnight Constipation. Resolved add senna and colace Urinary tract infection Likely secondary to bladder outlet obstruction Urine culture growing Enterobacter cloacae change IV levofloxacin 06/01 (renal dosing) Blood cultures negative JANINA Unknown baseline Creatinine up today at 4.38 secondary to bladder outlet obstruction Cortes catheter in place Follow creatinine closely Nephrology> will need outpatient follow-up Anion gap metabolic acidosis due to JANINA Treat as above Hyponatremia secondary to bladder outlet obstruction and JANINA nephrology following follow BMP Elevated blood pressure reading. Trending down No history of hypertension and not on any medications amlodipine 10 mg daily added DVT prophylaxis with heparin attending Dr. Scott Full code Requires ongoing inpatient stay for close monitoring of kidney function, sodium levels and need for bilateral ureteral stent placement Quality Stroke Does the patient have a stroke diagnosis?: No VTE Prior VTE?: No VTE Risk Level:: Medical - moderate - high VTE Device Contraindication: N/A - Device Ordered VTE Drug Contraindication: N/A - Med Ordered
[2024-06-04] MEDS: Docusate Sodium 100 MG CAPSULE PO ×2 (09:49→21:04)
[2024-06-04 09:50] VITALS: BP 136/72
[2024-06-04] MEDS: Finasteride 5 MG TABLET PO (09:50)
[2024-06-04] MEDS: amLODIPine Besylate 10 MG TABLET PO (09:50)
[2024-06-04] MEDS: 0.9 % Sodium Chloride Flush 3 ML SYRINGE IVFLUSH ×3 (09:53→21:05)
[2024-06-04 16:00] VITALS: BP 145/79; PULSE 67; RESP 16; TEMP 36.4; O2SAT 99
[2024-06-04 19:16] VITALS: BP 133/70; PULSE 68; RESP 18; TEMP 36.2; O2SAT 98
[2024-06-04] MEDS: Doxazosin Mesylate 1 MG TABLET PO (21:04)
[2024-06-05] VITALS (11 sets, daily range): BP systolic 109–148; BP diastolic 55–80; PULSE 65–75; RESP 15–18; TEMP 36.1–36.5; O2SAT 97–100
--- NOTE | 2024-06-05 08:47 | HO.PM.IMPN ---
Subjective Subjective Date of Service: 06/05/24 Interval History: Seen and examined this morning Follow-up for obstruction no overnight. No specific complaints. No abdominal pain nausea, diarrhea. Review of Systems Review of Systems: Yes all other systems are reviewed and are negative Constitutional Constitutional: Denies chills and Denies fever(s) Cardiovascular Cardiovascular: Denies chest pain and Denies palpitations Endocrine Endocrine: Denies palpitations Physical Exam Vital Signs: Vital Signs: Last Vital Signs Temp 97.6 F 06/05/24 07:41 Pulse 74 06/05/24 07:41 Resp 18 06/05/24 07:41 BP 137/75 06/05/24 07:41 Pulse Ox 99 06/05/24 07:41 O2 Del Method Room Air 06/05/24 07:41 BMI result Body Mass Index 23.5 Appearing in no acute distress lung sounds are clear to auscultation heart regular rate rhythm, clear S1, S2 positive bowel sounds, abdomen is soft, nontender neuro patient is alert x3, no focal deficits FC patent and draining Objective Data Active Medications Acetaminophen (Acetaminophen 325 Mg Tablet) 650 mg PO Q6H PRN PRN Reason: Pain, Mild (Pain Scale 1-3), fever or headache Amlodipine Besylate (Amlodipine Besylate 10 Mg Tablet) 10 mg PO DAILY [facility]; Protocol Last Admin: 06/04/24 09:50 Dose: 10 mg Documented By: MARIA L Calcium Carbonate (Calcium Carbonate 750 Mg Tab.Chew) 750 mg PO Q4H PRN PRN Reason: Heartburn Docusate Sodium (Docusate Sodium 100 Mg Capsule) 100 mg PO BID [facility] Last Admin: 06/04/24 21:04 Dose: 100 mg Documented By: CHARLENE Doxazosin Mesylate (Doxazosin Mesylate 1 Mg Tablet) 1 mg PO BEDTIME [facility]; Protocol Last Admin: 06/04/24 21:04 Dose: 1 mg Documented By: CHARLENE Finasteride (Finasteride 5 Mg Tablet) 5 mg PO DAILY [facility] Last Admin: 06/04/24 09:50 Dose: 5 mg Documented By: MARIA L Heparin Sodium (Porcine) (Heparin Sodium,Porcine 5,000 Unit/Ml Vial) 5,000 unit SUBCUT Q12H [facility] Last Admin: 06/05/24 05:42 Dose: Not Given Documented By: CHARLENE Non-Admin Reason: preop Hydralazine HCl (Hydralazine Hcl 20 Mg/Ml Vial) 5 mg IVPUSH Q6H PRN; Protocol PRN Reason: SBP>190 Levofloxacin (Levaquin) 500 mg in 100 mls @ 100 mls/hr IV Q48H [facility] Last Infusion: 06/03/24 17:17 Dose: Infused Documented By: MARIA L Magnesium Hydroxide (Milk Of Magnesia 30 Ml Oral.Susp) 30 ml PO DAILY PRN PRN Reason: Constipation Last Admin: 06/03/24 08:09 Dose: 30 ml Documented By: MARIA L Melatonin (Melatonin 3 Mg Tablet) 6 mg PO BEDTIME PRN PRN Reason: Insomnia Senna (Sennosides 8.6 Mg Tablet) 8.6 mg PO DAILY [facility] Last Admin: 06/04/24 09:53 Dose: Not Given Documented By: MARIA L Non-Admin Reason: Patient Refused Sodium Chloride (0.9 % Sodium Chloride Flush 3 Ml Syringe) 3 ml IVFLUSH QSHIFT [facility] Last Admin: 06/04/24 21:05 Dose: 3 ml Documented By: CHARLENE Labs 05/30/24 05:35 06/05/24 08:12 Assessment and Plan (1) Acute kidney injury superimposed on CKD: Status: Acute (2) Enlarged prostate with urinary obstruction: Status: Acute (3) Urinary tract infection: Status: Acute Plan 74-year-old man admitted with JANINA secondary to bladder outlet obstruction, patient has not been to pcp or hospital for more than 10 years Bladder outlet obstruction Secondary to prostatomegaly Cortes catheter placed and draining Urology following. Plan for cortes to remain in place at ct and follow up with urology o/p 2 week, spsteride, cardura added per urology recommendation Repeat renal ultrasound showing persistent b/l hydronephrosis, plan for stenting today Constipation. Resolved continue senna and colace Urinary tract infection Likely secondary to bladder outlet obstruction Urine culture growing Enterobacter cloacae IV levofloxacin 06/01 (renal dosing) Blood cultures negative JANINA Unknown baseline Creatinine up today at 4.38 secondary to bladder outlet obstruction Cortes catheter in place Follow creatinine closely Nephrology> will need outpatient follow-up Anion gap metabolic acidosis due to JANINA Treat as above Hyponatremia. improving secondary to bladder outlet obstruction and JANINA nephrology following follow BMP Elevated blood pressure reading. Trending down No history of hypertension and not on any medications amlodipine 10 mg daily added DVT prophylaxis with heparin attending Dr. Scott Full code Requires ongoing inpatient stay for close monitoring of kidney function, sodium levels and need for bilateral ureteral stent placement Quality Stroke Does the patient have a stroke diagnosis?: No VTE Prior VTE?: No VTE Risk Level:: Medical - moderate - high VTE Device Contraindication: N/A - Device Ordered VTE Drug Contraindication: N/A - Med Ordered
[2024-06-05 08:54] LABS: Anion Gap 22 (12-20); Blood Urea Nitrogen 95 mg/dL (9-16); Calcium 9.1 mg/dL (8.4-10.2); Carbon Dioxide 18 mmol/L (22-29); Chloride 94 mmol/L (96-108); Creatinine Clr Calc Pharmacy 12.5; Estimated Glomerular Filt Rate 12; Glucose Random 119 mg/dL (60-115); Potassium 3.8 mmol/L (3.3-5.1); Sodium 130 mmol/L (135-145)
[2024-06-05] MEDS: Finasteride 5 MG TABLET PO (08:56)
[2024-06-05] MEDS: amLODIPine Besylate 10 MG TABLET PO (08:57)
[2024-06-05] MEDS: Docusate Sodium 100 MG CAPSULE PO ×2 (08:57→21:56)
[2024-06-05] MEDS: 0.9 % Sodium Chloride Flush 3 ML SYRINGE IVFLUSH ×3 (08:57→21:57)
--- NOTE | 2024-06-05 10:41 | PM.PNNEP ---
Subjective Subjective Date of Service: 06/05/24 Interval history: Seen and examined this morning. For OR today Physical Exam Vital Signs: Vital Signs: Last Vital Signs Temp 97.6 F 06/05/24 07:41 Pulse 74 06/05/24 07:41 Resp 18 06/05/24 07:41 BP 137/75 06/05/24 07:41 Pulse Ox 99 06/05/24 07:41 O2 Del Method Room Air 06/05/24 07:41 BMI result Body Mass Index 23.5 Const: General: comfortable and no acute distress Orientation/consciousness: patient oriented x3 HEENT: Head: Yes normocephalic Mouth: Normal oral and palatal mucosa present Eyes: EOM: EOMs intact bilaterally Neck: Neck: Yes supple Resp: Auscultation: clear to auscultation bilaterally Cardio: Jugular venous distension: no JVD Rate: regular rate GI: Palpation (GI): Soft to palpation Auscultation: normal bowel sounds Skin: General skin exam: no rashes or lesions noted Neuro: General: patient oriented x3 and moves all extremities Extrem: General: Yes no pedal edema Objective Data Labs 05/30/24 05:35 06/05/24 08:12 Labs: Laboratory Results - last 24 hr 06/05/24 08:12 Sodium 130 L Potassium 3.8 Chloride 94 L Carbon Dioxide 18 L Anion Gap 22 H BUN 95 H Creatinine 4.82 H* Estim Creat Clear Calc 12.5 Estimated GFR 12 Random Glucose 119 H Calcium 9.1 Microbiology Microbiology Results: Microbiology 05/29/24 17:41 Blood - Venous Blood Culture - Final No growth after 5 days. 05/29/24 17:41 Blood - Venous Blood Culture - Final No growth after 5 days. 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 UO good; CT findings reviewed; F/U USS- B/L [place] No ACEI/ARB for now; Amlodipine 10 mg daily; For stenting today Started Vitamin D; No NSAID's Needs to follow up with me first week of Sep when D/Tong Progress Note: Quality Stroke Does the patient have a stroke diagnosis?: No
--- NOTE | 2024-06-05 11:00 | P.CONAN_ITS ---
[facility] Active Problems Active Problems: All Active Problems (Updated 06/05/24 @ 10:43 by Lang Conner MD) Vitamin D deficiency (Acute) Secondary hyperparathyroidism (of renal origin) (Acute) Acute kidney injury superimposed on CKD (Acute) Hypertension (Acute) Enlarged prostate with urinary obstruction (Acute) Bladder outlet obstruction (Acute) Renal failure (Acute) Urinary tract infection (Acute) Past Medical History Medical History Enlarged prostate HTN (hypertension) Surgical History Surgical History No pertinent past surgical history History of Problems with Anesthesia: No Social History Social History Household Members: Significant Other Housing: House Do you presently have visiting nurse or other home services: No Patient Tobacco Use Status: Never used Tobacco service: No Meds Allergies Allergy/AdvReac Type Severity Reaction Status Date / Time No Known Allergies Allergy Verified 05/29/24 11:53 Active Medications: Current Medications Acetaminophen (Acetaminophen 325 Mg Tablet) 650 mg PO Q6H PRN PRN Reason: Pain, Mild (Pain Scale 1-3), fever or headache Amlodipine Besylate (Amlodipine Besylate 10 Mg Tablet) 10 mg PO DAILY [facility]; Protocol Last Admin: 06/05/24 08:57 Dose: 10 mg Calcium Carbonate (Calcium Carbonate 750 Mg Tab.Chew) 750 mg PO Q4H PRN PRN Reason: Heartburn Docusate Sodium (Docusate Sodium 100 Mg Capsule) 100 mg PO BID [facility] Last Admin: 06/05/24 08:57 Dose: 100 mg Doxazosin Mesylate (Doxazosin Mesylate 1 Mg Tablet) 1 mg PO BEDTIME [facility]; Protocol Last Admin: 06/04/24 21:04 Dose: 1 mg Finasteride (Finasteride 5 Mg Tablet) 5 mg PO DAILY [facility] Last Admin: 06/05/24 08:56 Dose: 5 mg Heparin Sodium (Porcine) (Heparin Sodium,Porcine 5,000 Unit/Ml Vial) 5,000 unit SUBCUT Q12H [facility] Last Admin: 06/05/24 05:42 Dose: Not Given Hydralazine HCl (Hydralazine Hcl 20 Mg/Ml Vial) 5 mg IVPUSH Q6H [facility]; Protocol PRN Reason: SBP>190 Levofloxacin (Levaquin) 500 mg in 100 mls @ 100 mls/hr IV Q48H [facility] Last Infusion: 06/03/24 17:17 Dose: Infused Magnesium Hydroxide (Milk Of Magnesia 30 Ml Oral.Susp) 30 ml PO DAILY PRN PRN Reason: Constipation Last Admin: 06/03/24 08:09 Dose: 30 ml Melatonin (Melatonin 3 Mg Tablet) 6 mg PO BEDTIME PRN PRN Reason: Insomnia Senna (Sennosides 8.6 Mg Tablet) 8.6 mg PO DAILY [facility] Last Admin: 06/05/24 08:57 Dose: Not Given Sodium Chloride (0.9 % Sodium Chloride Flush 3 Ml Syringe) 3 ml IVFLUSH QSHIFT [facility] Last Admin: 06/05/24 08:57 Dose: 3 ml Vitamin D (Cholecalciferol (Vitamin D3) 10 Mcg Tablet) 20 mcg PO DAILY [facility] Home Medications ?Medication ?Instructions ?Recorded ?Confirmed ?Last Taken ?Type No Known Home Meds 05/29/24 05/29/24 Unknown History Exam Height,Weight and Vital Signs: Height 5 ft 6 in Weight 66.1 kg Last Vital Signs Temp 97.7 F 06/05/24 10:45 Pulse 69 06/05/24 10:45 Resp 15 06/05/24 10:45 BP 148/80 H 06/05/24 10:45 Pulse Ox 99 06/05/24 10:45 O2 Del Method Room Air 06/05/24 10:45 Pertinent Lab Results Pertinent Lab Results: Laboratory Tests 05/29/24 05/29/24 05/30/24 12:14 17:41 05:35 WBC 13.4 H 12.5 H RBC 3.92 L 3.51 L Hgb 11.5 L 10.1 L Hct 34.9 L 30.2 L MCV 89.0 86.0 MCH 29.3 28.8 MCHC 33.0 33.4 RDW 13.2 13.2 Plt Count 542 H 513 H MPV 9.0 L 9.2 L Immature Gran % (Auto) 1.1 H 0.9 H Neut % (Auto) 75.3 H 81.0 H Lymph % (Auto) 12.2 L 8.1 L [place] % (Auto) 9.6 8.3 Eos % (Auto) 1.0 1.1 Baso % (Auto) 0.8 0.6 Lymph # (Auto) 1.6 1.0 L [place] # (Auto) 1.3 H 1.0 Eos # (Auto) 0.1 0.1 Baso # (Auto) 0.1 0.1 Abs Immat Gran (auto) 0.15 H 0.11 H Absolute Neuts (auto) 10.1 H 10.1 H Absolute Nucleated RBC 0.000 0.000 Nucleated RBC % (auto) 0.0 0.0 Hold Purple Top Sodium 129 L 129 L 129 L Potassium 4.9 4.6 4.2 Chloride 97 99 98 Carbon Dioxide 16 L 15 L 17 L Anion Gap 21 H 20 18 BUN 114 H 109 H 102 H Creatinine 5.68 H* 5.10 H* 5.01 H* Estim Creat Clear Calc 10.6 11.8 12.0 Estimated GFR 10 11 11 Random Glucose 113 104 108 Estimat Average Glucose 120 Hemoglobin A1c % 5.8 Lactic Acid 0.8 Calcium 9.1 8.7 8.3 L Phosphorus Magnesium 2.6 Total Bilirubin 0.6 0.4 0.4 Direct Bilirubin 0.2 AST 22 19 20 ALT 59 H 53 H 41 H Alkaline Phosphatase 251 H 231 H 208 H Total Protein 9.5 H 9.0 H 7.9 Albumin 3.8 3.6 3.2 L 25-OH Vitamin D Total TSH 3.55 PTH Intact Urine Color PINK Urine Appearance Turbid Urine pH 5.5 Ur Specific [place] 1.010 Urine Protein 100 (2+) H Urine Glucose (UA) Negative Urine Ketones Negative Urine Blood Large (3+) H Urine Nitrite Negative Ur Leukocyte Esterase Large (3+) H Urine RBC >20 H Urine WBC >50 H Ur Squamous Epith Cells 0-2 Urine Bacteria 4+ Hyaline Casts 0-2 Urine Osmolality 339 L Ur Random Sodium 46.0 Urine Creatinine 65.57 05/31/24 06/01/24 06/02/24 05:31 05:37 05:34 WBC RBC Hgb Hct MCV MCH MCHC RDW Plt Count MPV Immature Gran % (Auto) Neut % (Auto) Lymph % (Auto) [place] % (Auto) Eos % (Auto) Baso % (Auto) Lymph # (Auto) [place] # (Auto) Eos # (Auto) Baso # (Auto) Abs Immat Gran (auto) Absolute Neuts (auto) Absolute Nucleated RBC Nucleated RBC % (auto) Hold Purple Top SEE NOTE SEE NOTE Sodium 129 L 128 L 127 L Potassium 4.1 3.9 4.3 Chloride 98 98 96 Carbon Dioxide 19 L 17 L 17 L Anion Gap 16 17 18 BUN 94 H 87 H 77 H Creatinine 4.18 H* 3.83 H 3.94 H Estim Creat Clear Calc 14.4 15.7 15.2 Estimated GFR 14 16 15 Random Glucose 93 101 98 Estimat Average Glucose Hemoglobin A1c % Lactic Acid Calcium 7.8 L D 7.9 L 8.3 L Phosphorus 5.3 H Magnesium Total Bilirubin Direct Bilirubin AST ALT Alkaline Phosphatase Total Protein Albumin 25-OH Vitamin D Total 21.7 L TSH PTH Intact 194.8 H Urine Color Urine Appearance Urine pH Ur Specific [place] Urine Protein Urine Glucose (UA) Urine Ketones Urine Blood Urine Nitrite Ur Leukocyte Esterase Urine RBC Urine WBC Ur Squamous Epith Cells Urine Bacteria Hyaline Casts Urine Osmolality Ur Random Sodium Urine Creatinine 06/04/24 06/05/24 05:32 08:12 WBC RBC Hgb Hct MCV MCH MCHC RDW Plt Count MPV Immature Gran % (Auto) Neut % (Auto) Lymph % (Auto) [place] % (Auto) Eos % (Auto) Baso % (Auto) Lymph # (Auto) [place] # (Auto) Eos # (Auto) Baso # (Auto) Abs Immat Gran (auto) Absolute Neuts (auto) Absolute Nucleated RBC Nucleated RBC % (auto) Hold Purple Top Sodium 127 L 130 L Potassium 4.0 3.8 Chloride 94 L 94 L Carbon Dioxide 19 L 18 L Anion Gap 18 22 H BUN 97 H 95 H Creatinine 4.38 H* 4.82 H* Estim Creat Clear Calc 13.7 12.5 Estimated GFR 13 12 Random Glucose 104 119 H Estimat Average Glucose Hemoglobin A1c % Lactic Acid Calcium 8.6 9.1 Phosphorus Magnesium Total Bilirubin Direct Bilirubin AST ALT Alkaline Phosphatase Total Protein Albumin 25-OH Vitamin D Total TSH PTH Intact Urine Color Urine Appearance Urine pH Ur Specific [place] Urine Protein Urine Glucose (UA) Urine Ketones Urine Blood Urine Nitrite Ur Leukocyte Esterase Urine RBC Urine WBC Ur Squamous Epith Cells Urine Bacteria Hyaline Casts Urine Osmolality Ur Random Sodium Urine Creatinine Airway Mallampati Class: III TM Dist: >3cm Neck ROM: Full Loose/Missing/Broken Teeth: No Heart: RRR Lungs: CTA Assessment and Plan Assessment Anesthesia Assessment: Anesthesia Plan Discussed and Chart Reviewed Final Anesthetic Review History of Problems with Anesthesia: No NPO: Yes ASA Class: III Final Preanesthetic Review: Meds/Allgs Chart Reviewed, Consent Obtained/Reviewed and Anes Risks/Benef Reviewed Patient Risk: Intermediate Procedure Risk: Low Anesthetic Plan Anesthetic Plan: GA Disposition: Standard PACU
--- NOTE | 2024-06-05 11:11 | MHC.CM.PN ---
per rounds pt nay need a vna when dcd called and spoke with pt does not have a pcp ,he can not have a vna pcp list left for family
[2024-06-05 11:15] LABS: IgA 558 mg/dL (70-320); IgG 1715 mg/dL (600-1540); IgM 94 mg/dL (50-300)
[2024-06-05] MEDS: Lactated Ringers 1,000 ML 50 ML IVCONT (11:21)
--- NOTE | 2024-06-05 13:22 | MHC.SHP ---
Pre-Procedural Eval Section A - 24 Hr Update-Section A only Date of Service: 06/05/24 The patient is an INPATIENT: Yes Changes since office visit: No Cold of Flu in the past 2 weeks, No New Medical Problems, No Changes in Medication and No Patient answered all questions The patient has been examined within 24 hours of the surgical procedure. The History & Physical has been completed within 30 days and I have reviewed it.: Yes Section B - Complete if H&P > 30 days Chief Complaint: bladder outlet obstruction Details of Present Illness: Bilateral hydronephrosis with elevated creatinine Allergies: Allergies Allergy/AdvReac Type Severity Reaction Status Date / Time No Known Allergies Allergy Verified 05/29/24 11:53 Review of Systems Sugical H&P ROS: Negative: Constitution, Cardiovascular, Respiratory, Neurological, Psychiatric, Hem-Onc, Allergic/Immunologic, Gastrointestinal, Genitourinary, Musculoskeletal, Integumentary, Endocrine and Eyes/Ears/Nose/Throat Exam Surgical H&P Exam: Normal: HEENT, Normal: Heart, Normal: Lungs, Normal: Extremities, Normal: Abdomen, Normal: Skin and Normal: Neurological Plan Diagnosis/Plan: Unchanged (Cystoscopy, clot evacuation, fulguration, bilateral retrograde, bilateral stent) I have reviewed the history and physical and performed a pertinent physical examination on my patient. No changes have occurred unless specified. Time Spent With Patient Time: Total time managing care of this patient today ____ minutes.
--- NOTE | 2024-06-05 14:14 | W.PM.OPN ---
Operative Note Operative Note Date of Service: 06/05/24 Narrative: PreOperative Diagnosis: Hematuria with bilateral hydronephrosis Post Operative Diagnosis: Hematuria with bilateral hydronephrosis Procedure: Cystoscopy with clot evacuation attempt at retrograde Surgeon: Dr Alan Reynolds Anesthesia: General Indications for procedure: JANINA Procedure: After informed consent was verified the patient was brought to the operating room and placed in a supine position. Anesthesia was administered per protocol. The patient was prepped and draped in a sterile fashion. Safety pause time-out was performed. Antibiotics being given. Cystoscopy performed. 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 Fulguration performed. Switched to continuous flow resectoscope. Unable to find or visualize ureteric orifice. Bladder irrigated multiple times. Procedure halted. Three-way Salcedo catheter placed. Irrigation started. Plan for bilateral PCN placement. Pathology: [] Drains: []
--- NOTE | 2024-06-05 19:02 | PC.NURSE ---
Pt returned from [facility] with CBI with bloody urine. Holding heparin per Leticia Patterson [employer]OV[employer] CONSULTANT and placed pneumatic boots. Educated patient on CBI, safety with getting OOB.
[2024-06-05] MEDS: Doxazosin Mesylate 1 MG TABLET PO (21:56)
[2024-06-06 03:12] VITALS: BP 134/74; PULSE 68; RESP 18; TEMP 36.3; O2SAT 98
[2024-06-06 07:23] VITALS: BP 144/83; PULSE 70; RESP 16; TEMP 36; O2SAT 98
[2024-06-06] MEDS: 0.9 % Sodium Chloride Flush 3 ML SYRINGE IVFLUSH ×3 (08:18→20:22)
[2024-06-06] MEDS: Docusate Sodium 100 MG CAPSULE PO ×2 (08:18→20:21)
[2024-06-06] MEDS: Finasteride 5 MG TABLET PO (08:18)
[2024-06-06] MEDS: Cholecalciferol (Vitamin D3) 10 MCG TABLET 20 MCG PO (08:18)
[2024-06-06] MEDS: amLODIPine Besylate 10 MG TABLET PO (08:18)
--- NOTE | 2024-06-06 08:44 | HO.POSTANES ---
Post Anesthesia Evaluation Post Anesthesia Evaluation Date of Service: 06/06/24 Vital Signs: Vital Signs Temp Pulse Resp BP Pulse Ox O2 Del Method 06/06/24 07:23 96.8 F 70 16 144/83 H 98 Room Air 06/06/24 03:12 97.4 F 68 18 134/74 98 Room Air 06/05/24 21:56 130/70 Anesthesia: General Mental Status: Awake Pain Control: Satisfactory Nausea/Vomiting: None Hydration: Adequate Anesthesia-Related Issues: No Anes. Related Issues
--- NOTE | 2024-06-06 08:58 | HO.PM.IMPN ---
Subjective Subjective Date of Service: 06/06/24 Interval History: Follow-up for urinary obstruction No specific complaints. No abdominal pain nausea, diarrhea. on CBI Plan for bilateral PCN Review of Systems Review of Systems: Yes all other systems are reviewed and are negative Constitutional Constitutional: Denies chills and Denies fever(s) Cardiovascular Cardiovascular: Denies chest pain and Denies palpitations Endocrine Endocrine: Denies palpitations Physical Exam Vital Signs: Vital Signs: Last Vital Signs Temp 96.8 F 06/06/24 07:23 Pulse 70 06/06/24 07:23 Resp 16 06/06/24 07:23 BP 144/83 H 06/06/24 07:23 Pulse Ox 98 06/06/24 07:23 O2 Del Method Room Air 06/06/24 07:23 O2 Flow Rate 6 06/05/24 14:15 BMI result Body Mass Index 23.5 Appearing in no acute distress lung sounds are clear to auscultation heart regular rate rhythm, clear S1, S2 positive bowel sounds, abdomen is soft, nontender neuro patient is alert x3, no focal deficits FC with CBI Objective Data Active Medications Acetaminophen (Acetaminophen 325 Mg Tablet) 650 mg PO Q6H PRN PRN Reason: Pain, Mild (Pain Scale 1-3), fever or headache Amlodipine Besylate (Amlodipine Besylate 10 Mg Tablet) 10 mg PO DAILY [facility]; Protocol Last Admin: 06/06/24 08:18 Dose: 10 mg Documented By: CHINMAY Calcium Carbonate (Calcium Carbonate 750 Mg Tab.Chew) 750 mg PO Q4H PRN PRN Reason: Heartburn Docusate Sodium (Docusate Sodium 100 Mg Capsule) 100 mg PO BID [facility] Last Admin: 06/06/24 08:18 Dose: 100 mg Documented By: CHINMAY Doxazosin Mesylate (Doxazosin Mesylate 1 Mg Tablet) 1 mg PO BEDTIME [facility]; Protocol Last Admin: 06/05/24 21:56 Dose: 1 mg Documented By: HERBER Finasteride (Finasteride 5 Mg Tablet) 5 mg PO DAILY [facility] Last Admin: 06/06/24 08:18 Dose: 5 mg Documented By: CHINMAY Heparin Sodium (Porcine) (Heparin Sodium,Porcine 5,000 Unit/Ml Vial) 5,000 unit SUBCUT Q12H [facility] Last Admin: 06/06/24 05:38 Dose: Not Given Documented By: HERBER Non-Admin Reason: pre procedure, hematuria Hydralazine HCl (Hydralazine Hcl 20 Mg/Ml Vial) 5 mg IVPUSH Q6H PRN; Protocol PRN Reason: SBP>190 Levofloxacin (Levaquin) 500 mg in 100 mls @ 100 mls/hr IV Q48H [facility] Magnesium Hydroxide (Milk Of Magnesia 30 Ml Oral.Susp) 30 ml PO DAILY PRN PRN Reason: Constipation Last Admin: 06/03/24 08:09 Dose: 30 ml Documented By: MARIA L Melatonin (Melatonin 3 Mg Tablet) 6 mg PO BEDTIME PRN PRN Reason: Insomnia Senna (Sennosides 8.6 Mg Tablet) 8.6 mg PO DAILY [facility] Last Admin: 06/06/24 08:26 Dose: Not Given Documented By: CHINMAY Non-Admin Reason: NPO Sodium Chloride (0.9 % Sodium Chloride Flush 3 Ml Syringe) 3 ml IVFLUSH QSHIFT [facility] Last Admin: 06/06/24 08:18 Dose: 3 ml Documented By: CHINMAY Vitamin D (Cholecalciferol (Vitamin D3) 10 Mcg Tablet) 20 mcg PO DAILY [facility] Last Admin: 06/06/24 08:18 Dose: 20 mcg Documented By: CHINMAY Labs 05/30/24 05:35 06/05/24 08:12 Labs: Laboratory Results - last 24 hr 05/31/24 05:31 IgG Total 1715 H IgA Total 558 H IgM 94 LENIN Interpretation SEE NOTE Assessment and Plan (1) Acute kidney injury superimposed on CKD: Status: Acute (2) Enlarged prostate with urinary obstruction: Status: Acute (3) Urinary tract infection: Status: Acute Plan 74-year-old man admitted with JANINA secondary to bladder outlet obstruction, patient has not been to pcp or hospital for more than 10 years Bladder outlet obstruction Secondary to prostatomegaly Salcedo catheter placed and draining Urology following>finesteride, cardura added per urology recommendation Repeat renal ultrasound showing persistent b/l hydronephrosis, 06/05/24 attempted clot evacuation and retrograde unsuccessful. Plan for Bilateral PCN Constipation. Resolved continue senna and colace Urinary tract infection Likely secondary to bladder outlet obstruction Urine culture growing Enterobacter cloacae IV levofloxacin 06/01 (renal dosing) Blood cultures negative JANINA on CKD 4 Unknown baseline secondary to bladder outlet obstruction Salcedo catheter in place Follow creatinine closely Nephrology> will need outpatient follow-up, no need for dialysis at this time Anion gap metabolic acidosis due to JANINA Treat as above Hyponatremia. improving secondary to bladder outlet obstruction and JANINA nephrology following follow BMP Elevated blood pressure reading. Trending down No history of hypertension and not on any medications continue amlodipine 10 mg DVT prophylaxis with heparin attending Dr. Meredith Full code Requires ongoing inpatient stay for close monitoring of kidney function, sodium levels and need for bilateral ureteral stent placement Quality Stroke Does the patient have a stroke diagnosis?: No VTE Prior VTE?: No VTE Risk Level:: Medical - moderate - high VTE Device Contraindication: N/A - Device Ordered VTE Drug Contraindication: N/A - Med Ordered
[2024-06-06 10:08] LABS: Creatinine Clr Calc Pharmacy 13.9; Estimated Glomerular Filt Rate 14
[2024-06-06 10:09] LABS: Anion Gap 20 (12-20); Blood Urea Nitrogen 83 mg/dL (9-16); Calcium 9.3 mg/dL (8.4-10.2); Carbon Dioxide 21 mmol/L (22-29); Chloride 95 mmol/L (96-108); Glucose Random 108 mg/dL (60-115); Potassium 4.8 mmol/L (3.3-5.1); Sodium 131 mmol/L (135-145)
[2024-06-06 11:35] LABS: INTERNATIONAL NORM RATIO 1.1 (0.9-1.1); Prothrombin Time 12.8 SEC (11.1-13.3)
[2024-06-06 11:36] VITALS: BP 140/77; PULSE 75; RESP 16; TEMP 36.1; O2SAT 98
--- NOTE | 2024-06-06 12:41 | P.PNNP_ITS ---
Subjective Subjective Date of Service: 06/06/24 Interval history: Follow-up for urinary obstruction No specific complaints. No abdominal pain nausea, diarrhea. on CBI Plan for bilateral PCN Physical Exam 2 Vital Signs: Vital Signs: Last Vital Signs Temp 96.9 F 06/06/24 11:36 Pulse 75 06/06/24 11:36 Resp 16 06/06/24 11:36 BP 140/77 H 06/06/24 11:36 Pulse Ox 98 06/06/24 11:36 O2 Del Method Room Air 06/06/24 11:36 O2 Flow Rate 6 06/05/24 14:15 BMI result Body Mass Index 23.5 Const: General: comfortable and no acute distress O rientation/consciousness: patient oriented x3 HEENT: Head: Yes normocephalic Mouth: Normal oral and palatal mucosa present Eyes: EOM: EOMs intact bilaterally Neck: Neck: Yes supple Resp: Auscultation: clear to auscultation bilaterally and diminished lung sounds Cardio: Jugular venous distension: no JVD Rate: regular rate GI: Palpation (GI): Soft to palpation Auscultation: normal bowel sounds : General: Yes no CVA tenderness Back/Spine/Pelvis: Back: no CVA tenderness Skin: General skin exam: no rashes or lesions noted Neuro: General: patient oriented x3 and moves all extremities Extrem: General: Yes no pedal edema Objective Data Labs 05/30/24 05:35 06/07/24 05:50 Labs: Laboratory Results - last 24 hr 06/06/24 06/06/24 08:31 11:09 PT 12.8 INR 1.1 Sodium 131 L Potassium 4.8 D Chloride 95 L Carbon Dioxide 21 L Anion Gap 20 BUN 83 H Creatinine 4.32 H* Estim Creat Clear Calc 13.9 Estimated GFR 14 Random Glucose 108 Calcium 9.3 Microbiology Microbiology Results: Microbiology 05/29/24 17:41 Blood - Venous Blood Culture - Final No growth after 5 days. 05/29/24 17:41 Blood - Venous Blood Culture - Final No growth after 5 days. 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 UO good; CT findings reviewed; F/U [facility]- B/L [place] No ACEI/ARB for now; Amlodipine 10 mg daily; For stenting today ; No NSAID's No indication for dialysis Time Spent With Patient Time: Total time managing care of this patient today ____ minutes. Progress Note: Quality Stroke Does the patient have a stroke diagnosis?: No
--- NOTE | 2024-06-06 14:10 | PM.EVENT ---
Event Note Date of Service: 06/06/24 Event Note: Billateral percutaneous nephrostomy tubes placed in IR. No complication immediately. Tubes maintained to gravity bag drainage Full report to follow with imaging. Time Spent With Patient Time: Total time managing care of this patient today ____ minutes.
[2024-06-06] MEDS: Sennosides 8.6 MG TABLET PO (15:18)
[2024-06-06 15:35] VITALS: BP 131/72; PULSE 67; RESP 16; TEMP 36.2; O2SAT 99
--- NOTE | 2024-06-06 16:52 | PC.NURSE ---
Holding evening dose of heparin per provider. Ok to give AM dose per provider.
[2024-06-06 19:20] VITALS: BP 128/75; PULSE 74; RESP 20; TEMP 36.2; O2SAT 99
--- NOTE | 2024-06-06 19:32 | PC.NURSE ---
CBI RUNNING CLEAR, NO CLOTS. DR. SMITH NOTIFIED. OK TO CLAMP CBI. NEPHROSTOMY TUBES DRAINING YELLOW URINE.
[2024-06-06 20:21] VITALS: BP 128/75
[2024-06-06] MEDS: Doxazosin Mesylate 1 MG TABLET PO (20:21)
[2024-06-07 03:39] VITALS: BP 126/71; PULSE 88; RESP 18; TEMP 36; O2SAT 99
[2024-06-07] MEDS: Heparin Sodium,Porcine 5,000 UNIT/ML VIAL 5000 UNIT SUBCUT ×2 (04:16→17:08)
[2024-06-07 06:21] LABS: Anion Gap 18 (12-20); Blood Urea Nitrogen 87 mg/dL (9-16); Calcium 9.1 mg/dL (8.4-10.2); Carbon Dioxide 23 mmol/L (22-29); Chloride 96 mmol/L (96-108); Creatinine Clr Calc Pharmacy 13.7; Estimated Glomerular Filt Rate 13; Glucose Random 101 mg/dL (60-115); Sodium 132 mmol/L (135-145)
[2024-06-07 07:45] VITALS: BP 137/73; PULSE 67; RESP 18; TEMP 36.1; O2SAT 99
[2024-06-07] MEDS: 0.9 % Sodium Chloride Flush 3 ML SYRINGE IVFLUSH (08:30)
[2024-06-07] MEDS: amLODIPine Besylate 10 MG TABLET PO (08:30)
[2024-06-07] MEDS: Cholecalciferol (Vitamin D3) 10 MCG TABLET 20 MCG PO (08:30)
[2024-06-07] MEDS: Sennosides 8.6 MG TABLET PO (08:30)
[2024-06-07] MEDS: Docusate Sodium 100 MG CAPSULE PO ×2 (08:30→19:51)
[2024-06-07] MEDS: Finasteride 5 MG TABLET PO (08:30)
[2024-06-07 11:00] VITALS: BP 125/74; PULSE 73; RESP 18; TEMP 36.1; O2SAT 97
--- NOTE | 2024-06-07 11:35 | P.PNIM_ITS ---
Subjective Subjective Date of Service: 06/07/24 Interval History: No acute issues overnight. Tolerating percutaneous tubes Review of Systems Denies chest pain Denies shortness of breath Denies nausea vomiting diarrhea Denies fever chills Physical Exam 2 Vital Signs: Vital Signs: Last Vital Signs Temp 96.9 F 06/07/24 11:00 Pulse 73 06/07/24 11:00 Resp 18 06/07/24 11:00 BP 125/74 06/07/24 11:00 Pulse Ox 97 06/07/24 11:00 O2 Del Method Room Air 06/07/24 11:00 O2 Flow Rate 0 06/06/24 19:20 BMI result Body Mass Index 23.5 Const: Other: Awake alert no acute distress Resp: Other: Clear to auscultation bilaterally no rales rhonchi or wheezes Cardio: Other: No S4; positive S1-S2; no S3 murmurs rubs or gallops GI: Other: Soft nontender nondistended normoactive bowel sounds Extrem: Other: No edema bilaterally Objective Data Active Medications Acetaminophen (Acetaminophen 325 Mg Tablet) 650 mg PO Q6H PRN PRN Reason: Pain, Mild (Pain Scale 1-3), fever or headache Amlodipine Besylate (Amlodipine Besylate 10 Mg Tablet) 10 mg PO DAILY [facility]; Protocol Last Admin: 06/07/24 08:30 Dose: 10 mg Documented By: SALMA Calcium Carbonate (Calcium Carbonate 750 Mg Tab.Chew) 750 mg PO Q4H PRN PRN Reason: Heartburn Docusate Sodium (Docusate Sodium 100 Mg Capsule) 100 mg PO BID [facility] Last Admin: 06/07/24 08:30 Dose: 100 mg Documented By: SALMA Doxazosin Mesylate (Doxazosin Mesylate 1 Mg Tablet) 1 mg PO BEDTIME [facility]; Protocol Last Admin: 06/06/24 20:21 Dose: 1 mg Documented By: HERBER Finasteride (Finasteride 5 Mg Tablet) 5 mg PO DAILY [facility] Last Admin: 06/07/24 08:30 Dose: 5 mg Documented By: SALMA Heparin Sodium (Porcine) (Heparin Sodium,Porcine 5,000 Unit/Ml Vial) 5,000 unit SUBCUT Q12H [facility] Last Admin: 06/07/24 04:16 Dose: 5,000 unit Documented By: HERBER Hydralazine HCl (Hydralazine Hcl 20 Mg/Ml Vial) 5 mg IVPUSH Q6H PRN; Protocol PRN Reason: SBP>190 Levofloxacin (Levaquin) 500 mg in 100 mls @ 100 mls/hr IV Q48H [facility] Magnesium Hydroxide (Milk Of Magnesia 30 Ml Oral.Susp) 30 ml PO DAILY PRN PRN Reason: Constipation Last Admin: 06/03/24 08:09 Dose: 30 ml Documented By: MARIA L Melatonin (Melatonin 3 Mg Tablet) 6 mg PO BEDTIME PRN PRN Reason: Insomnia Senna (Sennosides 8.6 Mg Tablet) 8.6 mg PO DAILY [facility] Last Admin: 06/07/24 08:30 Dose: 8.6 mg Documented By: SALMA Sodium Chloride (0.9 % Sodium Chloride Flush 3 Ml Syringe) 3 ml IVFLUSH QSHIFT [facility] Last Admin: 06/07/24 08:30 Dose: 3 ml Documented By: SALMA Vitamin D (Cholecalciferol (Vitamin D3) 10 Mcg Tablet) 20 mcg PO DAILY [facility] Last Admin: 06/07/24 08:30 Dose: 20 mcg Documented By: SALMA Labs 05/30/24 05:35 06/07/24 05:50 Labs: Laboratory Results - last 24 hr 06/06/24 06/07/24 11:09 05:50 PT 12.8 INR 1.1 Anion Gap 18 Estim Creat Clear Calc 13.7 Estimated GFR 13 Random Glucose 101 Calcium 9.1 Assessment and Plan (1) Bladder outlet obstruction: Status: Acute (2) Acute kidney injury superimposed on CKD: Status: Acute Plan 74-year-old man admitted with JANINA secondary to bladder outlet obstruction, patient has not been to pcp or hospital for more than 10 years 1.Bladder outlet obstruction -cortes catheter with bloody drainage however without clots -percutaneous tubes draining clear yellow urine -discussed with Urology; will continue current therapies -no need for CBI at this time 2.Urinary tract infection -urine culture growing Enterobacter cloacae -IV levofloxacin (7) -blood cultures negative 3.JANINA on CKD 4 -creatinine essentially unchanged despite percutaneous tubes -we will discuss with renal 4.Hyponatremia -slowly improving -follow renal/divalents 5. Hypertension -amlodipine 10 mg -Heparin -full code Requires ongoing inpatient stay for close monitoring of kidney function, sodium levels and specialty consult Quality Stroke Does the patient have a stroke diagnosis?: No VTE Prior VTE?: No VTE Risk Level:: Medical - moderate - high VTE Device Contraindication: N/A - Device Ordered VTE Drug Contraindication: N/A - Med Ordered
[2024-06-07] MEDS: levoFLOXacin/D5W 500 MG/100 ML PIGGYBACK 100 MG IV (13:03)
--- NOTE | 2024-06-07 13:34 | P.PNNP_ITS ---
Subjective Subjective Date of Service: 06/07/24 Interval history: No acute issues overnight. Tolerating percutaneous tubes Physical Exam 2 Vital Signs: Vital Signs: Last Vital Signs Temp 96.9 F 06/07/24 11:00 Pulse 73 06/07/24 11:00 Resp 18 06/07/24 11:00 BP 125/74 06/07/24 11:00 Pulse Ox 97 06/07/24 11:00 O2 Del Method Room Air 06/07/24 11:00 O2 Flow Rate 0 06/06/24 19:20 BMI result Body Mass Index 23.5 Const: General: comfortable and no acute distress O rientation/consciousness: patient oriented x3 HEENT: Head: Yes normocephalic Mouth: Normal oral and palatal mucosa present Eyes: EOM: EOMs intact bilaterally Neck: Neck: Yes supple Resp: Auscultation: clear to auscultation bilaterally and diminished lung sounds Cardio: Jugular venous distension: no JVD Rate: regular rate GI: Palpation (GI): Soft to palpation Auscultation: normal bowel sounds : General: Yes no CVA tenderness Back/Spine/Pelvis: Back: no CVA tenderness Skin: General skin exam: no rashes or lesions noted Neuro: General: patient oriented x3 and moves all extremities Extrem: General: Yes no pedal edema Objective Data Labs 06/08/24 11:28 06/08/24 05:27 Labs: Laboratory Results - last 24 hr 06/07/24 05:50 Sodium 132 L Potassium 5.0 Chloride 96 Carbon Dioxide 23 Anion Gap 18 BUN 87 H Creatinine 4.38 H* Estim Creat Clear Calc 13.7 Estimated GFR 13 Random Glucose 101 Calcium 9.1 Microbiology Microbiology Results: Microbiology 05/29/24 17:41 Blood - Venous Blood Culture - Final No growth after 5 days. 05/29/24 17:41 Blood - Venous Blood Culture - Final No growth after 5 days. 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 UO good; CT findings reviewed; F/U [facility]- B/L [place] No ACEI/ARB for now; Amlodipine 10 mg daily; ; No NSAID's No improvement in cr yet No indication for dialysis Mild hyponatremia Restrict hypotonic fluids Time Spent With Patient Time: Total time managing care of this patient today ____ minutes. Progress Note: Quality Stroke Does the patient have a stroke diagnosis?: No
--- NOTE | 2024-06-07 14:06 | MHC.CM.PN ---
EMR reviewed and per MD rounds, pt is not medically cleared for discharge due to management of bladder outlet obstruction requiring close monitoring of kidney function.
[2024-06-07 16:00] VITALS: BP 115/71; PULSE 74; RESP 18; TEMP 36.1; O2SAT 97
[2024-06-07] MEDS: Milk of Magnesia 30 ML ORAL.SUSP PO (17:08)
[2024-06-07 19:50] VITALS: BP 134/73; PULSE 75; RESP 18; TEMP 36.3; O2SAT 99
[2024-06-07 19:52] VITALS: BP 134/73
[2024-06-07] MEDS: Doxazosin Mesylate 1 MG TABLET PO (19:52)
[2024-06-08] MEDS: 0.9 % Sodium Chloride Flush 3 ML SYRINGE IVFLUSH ×4 (00:05→19:38)
[2024-06-08 03:19] VITALS: BP 144/85; PULSE 72; RESP 18; TEMP 36.1; O2SAT 99
[2024-06-08] MEDS: Heparin Sodium,Porcine 5,000 UNIT/ML VIAL 5000 UNIT SUBCUT (05:23)
[2024-06-08 06:27] LABS: Anion Gap 19 (12-20); Blood Urea Nitrogen 91 mg/dL (9-16); Carbon Dioxide 21 mmol/L (22-29); Chloride 95 mmol/L (96-108); Creatinine Clr Calc Pharmacy 14.2; Estimated Glomerular Filt Rate 14; Glucose Random 97 mg/dL (60-115); Potassium 4.5 mmol/L (3.3-5.1); Sodium 130 mmol/L (135-145)
[2024-06-08 06:58] VITALS: BP 116/66; PULSE 75; RESP 16; TEMP 36; O2SAT 99
[2024-06-08] MEDS: Docusate Sodium 100 MG CAPSULE PO ×2 (07:47→19:39)
[2024-06-08] MEDS: Sennosides 8.6 MG TABLET PO (07:47)
[2024-06-08] MEDS: Cholecalciferol (Vitamin D3) 10 MCG TABLET 20 MCG PO (07:47)
[2024-06-08] MEDS: amLODIPine Besylate 10 MG TABLET PO (07:48)
[2024-06-08] MEDS: Finasteride 5 MG TABLET PO (07:48)
[2024-06-08 11:00] VITALS: O2SAT 97
[2024-06-08] MEDS: polyethylene glycoL 3350 17 GM POWD.PACK PO (11:05)
[2024-06-08 11:39] LABS: Hematocrit 32.4 % (42.0-52.0); Hemoglobin 11.3 g/dl (14.0-18.0); Mean Corpuscular HGB Conc 34.9 g/dl (31.0-36.0); Mean Corpuscular Hemoglobin 30.1 pg (27.0-33.0); Mean Corpuscular Volume 86.2 fL (80.0-98.0); Mean Platelet Volume 8.7 fL (9.4-12.4); Platelet Count 489 X10*3/uL (160-400); Red Blood Count 3.76 X10*6/uL (4.60-5.80); Red Cell Distribution Width 13.2 % (11.0-16.0); White Blood Count 9.7 X10*3/uL (4.8-10.8)
--- NOTE | 2024-06-08 12:24 | MHC.CM.PN ---
Pt was given a local list of PCP's and states he will call to try and get an appointment with one.
--- NOTE | 2024-06-08 12:46 | PC.NURSE ---
CBI previously stopped, Salcedo catheter draining punch colored urine this AM, no clots noted, Per Tasneem [place] and urology CBI to be restarted. CBI now running, output is clear, Pt is tolerated with no complaints of pain or pressure.
--- NOTE | 2024-06-08 13:03 | P.PNNP_ITS ---
Subjective Subjective Date of Service: 06/08/24 Interval history: No acute issues overnight. Tolerating percutaneous tubes Physical Exam 2 Vital Signs: Vital Signs: Last Vital Signs Temp 96.8 F 06/08/24 06:58 Pulse 75 06/08/24 06:58 Resp 16 06/08/24 06:58 BP 116/66 06/08/24 06:58 Pulse Ox 97 06/08/24 11:00 O2 Del Method Room Air 06/08/24 11:00 O2 Flow Rate 0 06/06/24 19:20 BMI result Body Mass Index 23.5 Const: General: comfortable and no acute distress O rientation/consciousness: patient oriented x3 HEENT: Head: Yes normocephalic Mouth: Normal oral and palatal mucosa present Eyes: EOM: EOMs intact bilaterally Neck: Neck: Yes supple Resp: Auscultation: clear to auscultation bilaterally and diminished lung sounds Cardio: Jugular venous distension: no JVD Rate: regular rate GI: Palpation (GI): Soft to palpation Auscultation: normal bowel sounds : General: Yes no CVA tenderness Back/Spine/Pelvis: Back: no CVA tenderness Skin: General skin exam: no rashes or lesions noted Neuro: General: patient oriented x3 and moves all extremities Extrem: General: Yes no pedal edema Objective Data Labs 06/08/24 11:28 06/08/24 05:27 Labs: Laboratory Results - last 24 hr 06/08/24 06/08/24 05:27 11:28 WBC 9.7 RBC 3.76 L Hgb 11.3 L Hct 32.4 L MCV 86.2 MCH 30.1 MCHC 34.9 RDW 13.2 Plt Count 489 H MPV 8.7 L Absolute Nucleated RBC 0.000 Nucleated RBC % (auto) 0.0 Sodium 130 L Potassium 4.5 Chloride 95 L Carbon Dioxide 21 L Anion Gap 19 BUN 91 H Creatinine 4.22 H* Estim Creat Clear Calc 14.2 Estimated GFR 14 Random Glucose 97 Calcium 9.0 Microbiology Microbiology Results: Microbiology 05/29/24 17:41 Blood - Venous Blood Culture - Final No growth after 5 days. 05/29/24 17:41 Blood - Venous Blood Culture - Final No growth after 5 days. 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 UO good; CT findings reviewed; F/U USS- B/L [place] No ACEI/ARB for now; Amlodipine 10 mg daily; ; No NSAID's No improvement in cr yet No indication for dialysis Mild hyponatremia Restrict hypotonic fluids Time Spent With Patient Time: Total time managing care of this patient today ____ minutes. Progress Note: Quality Stroke Does the patient have a stroke diagnosis?: No
[2024-06-08 15:15] VITALS: BP 133/79; PULSE 70; RESP 18; TEMP 36; O2SAT 98
--- NOTE | 2024-06-08 17:27 | HO.PM.IMPN ---
Subjective Subjective Date of Service: 06/08/24 Interval History: Seen and examined this morning Follow-up for bladder outlet obstruction, JANINA, hematuria Having hematuria from Salcedo catheter No abdominal pain Review of Systems Review of Systems: Yes all other systems are reviewed and are negative Constitutional Constitutional: Denies chills and Denies fever(s) Cardiovascular Cardiovascular: Denies chest pain, Denies palpitations and Denies dyspnea Respiratory Respiratory: Denies cough and Denies dyspnea Gastrointestinal Gastrointestinal: Denies abdominal pain, Denies nausea and Denies vomiting Genitourinary Genitourinary: Reports hematuria Endocrine Endocrine: Denies palpitations Physical Exam Vital Signs: Vital Signs: Last Vital Signs Temp 96.8 F 06/08/24 15:15 Pulse 70 06/08/24 15:15 Resp 18 06/08/24 15:15 BP 133/79 06/08/24 15:15 Pulse Ox 98 06/08/24 15:15 O2 Del Method Room Air 06/08/24 15:15 O2 Flow Rate 0 06/06/24 19:20 BMI result Body Mass Index 23.5 Const: General: cooperative, comfortable, no acute distress, alert and awake Nutritional Appearance: average body habitus Orientation/consciousness: patient oriented x3 Resp: Effort & Inspection: normal respiratory effort and able to speak in complete sentences Cardio: Rate: regular rate GI: Inspection: No distended Palpation (GI): Soft to palpation : Other: Salcedo in place - hematuria; b/l nephrostomy tubes draining clear Neuro: Other: Grossly nonfocal General: patient oriented x3 Extrem: General: Yes no pedal edema Objective Data Active Medications Acetaminophen (Acetaminophen 325 Mg Tablet) 650 mg PO Q6H PRN PRN Reason: Pain, Mild (Pain Scale 1-3), fever or headache Amlodipine Besylate (Amlodipine Besylate 10 Mg Tablet) 10 mg PO DAILY [facility]; Protocol Last Admin: 06/08/24 07:48 Dose: 10 mg Documented By: OTILIO Calcium Carbonate (Calcium Carbonate 750 Mg Tab.Chew) 750 mg PO Q4H PRN PRN Reason: Heartburn Docusate Sodium (Docusate Sodium 100 Mg Capsule) 100 mg PO BID [facility] Last Admin: 06/08/24 07:47 Dose: 100 mg Documented By: OTILIO Doxazosin Mesylate (Doxazosin Mesylate 1 Mg Tablet) 1 mg PO BEDTIME [facility]; Protocol Last Admin: 06/07/24 19:52 Dose: 1 mg Documented By: NORI Finasteride (Finasteride 5 Mg Tablet) 5 mg PO DAILY [facility] Last Admin: 06/08/24 07:48 Dose: 5 mg Documented By: OTILIO Heparin Sodium (Porcine) (Heparin Sodium,Porcine 5,000 Unit/Ml Vial) 5,000 unit SUBCUT Q12H [facility] Last Admin: 06/08/24 05:23 Dose: 5,000 unit Documented By: NORI Hydralazine HCl (Hydralazine Hcl 20 Mg/Ml Vial) 5 mg IVPUSH Q6H PRN; Protocol PRN Reason: SBP>190 Levofloxacin (Levaquin) 500 mg in 100 mls @ 100 mls/hr IV Q48H [facility] Last Infusion: 06/07/24 14:07 Dose: Infused Documented By: SALMA Magnesium Hydroxide (Milk Of Magnesia 30 Ml Oral.Susp) 30 ml PO DAILY PRN PRN Reason: Constipation Last Admin: 06/07/24 17:08 Dose: 30 ml Documented By: SALMA Melatonin (Melatonin 3 Mg Tablet) 6 mg PO BEDTIME PRN PRN Reason: Insomnia Polyethylene Glycol (Polyethylene Glycol 3350 17 Gm Powd.Pack) 17 gm PO DAILY [facility] Last Admin: 06/08/24 11:05 Dose: 17 gm Documented By: OTILIO Senna (Sennosides 8.6 Mg Tablet) 8.6 mg PO DAILY [facility] Last Admin: 06/08/24 07:47 Dose: 8.6 mg Documented By: OTILIO Sodium Chloride (0.9 % Sodium Chloride Flush 3 Ml Syringe) 3 ml IVFLUSH QSHIFT [facility] Last Admin: 06/08/24 15:04 Dose: 3 ml Documented By: OTILIO Vitamin D (Cholecalciferol (Vitamin D3) 10 Mcg Tablet) 20 mcg PO DAILY [facility] Last Admin: 06/08/24 07:47 Dose: 20 mcg Documented By: OTILIO Labs 06/08/24 11:28 06/08/24 05:27 Labs: Laboratory Results - last 24 hr 06/08/24 06/08/24 05:27 11:28 MCV 86.2 MCH 30.1 MCHC 34.9 RDW 13.2 Plt Count 489 H MPV 8.7 L Absolute Nucleated RBC 0.000 Nucleated RBC % (auto) 0.0 Anion Gap 19 Estim Creat Clear Calc 14.2 Estimated GFR 14 Random Glucose 97 Calcium 9.0 Assessment and Plan (1) Acute kidney injury superimposed on CKD: Status: Acute (2) Hematuria: Status: Acute Plan 74-year-old man admitted with JANINA secondary to bladder outlet obstruction, patient has not been to pcp or hospital for more than 10 years Bladder outlet obstruction Secondary to prostatomegaly Salcedo catheter placed and draining Urology following>finesteride, cardura added per urology recommendation Repeat renal ultrasound showing persistent b/l hydronephrosis, 06/05/24 attempted clot evacuation and retrograde unsuccessful s/p Bilateral percutaneous nephrostomy tubes placed by IR 06/06 hematuria Plan to resume CBI hold heparin CBC stable follow H/H Constipation. Resolved continue senna and colace prn miralax Urinary tract infection Likely secondary to bladder outlet obstruction Urine culture growing Enterobacter cloacae IV levofloxacin 06/01 (renal dosing) - plan for 10 days total, end date 06/10 Blood cultures negative JANINA on CKD 4 Unknown baseline secondary to bladder outlet obstruction Salcedo catheter in place Follow creatinine closely Nephrology> will need outpatient follow-up, no need for dialysis at this time Anion gap metabolic acidosis due to JANINA improved Hyponatremia. improving secondary to bladder outlet obstruction and JANINA nephrology following follow BMP Elevated blood pressure reading. Trending down No history of hypertension and not on any medications continue amlodipine 10 mg DVT prophylaxis -heparin on hold for hematuria, mechanical devices attending Dr. Meredith Full code Requires ongoing inpatient stay for close monitoring of kidney function, sodium levels and CBI for hematuria, specialist monitoring Quality Stroke Does the patient have a stroke diagnosis?: No VTE Prior VTE?: No VTE Risk Level:: Medical - moderate - high VTE Device Contraindication: N/A - Device Ordered VTE Drug Contraindication: N/A - Med Ordered
[2024-06-08 19:16] VITALS: BP 140/77; PULSE 70; RESP 18; TEMP 36.3; O2SAT 98
[2024-06-08 19:38] VITALS: BP 140/77
[2024-06-08] MEDS: Doxazosin Mesylate 1 MG TABLET PO (19:38)
[2024-06-09 02:48] VITALS: BP 129/75; PULSE 75; RESP 18; TEMP 36.2; O2SAT 97
[2024-06-09 06:55] LABS: Anion Gap 14 (12-20); Blood Urea Nitrogen 82 mg/dL (9-16); Calcium 8.8 mg/dL (8.4-10.2); Carbon Dioxide 23 mmol/L (22-29); Chloride 94 mmol/L (96-108); Creatinine Clr Calc Pharmacy 16.1; Estimated Glomerular Filt Rate 16; Glucose Random 88 mg/dL (60-115); Potassium 4.3 mmol/L (3.3-5.1); Sodium 127 mmol/L (135-145)
[2024-06-09 08:00] VITALS: RESP 18; TEMP 36.6; O2SAT 96
[2024-06-09 08:06] VITALS: BP 133/79
[2024-06-09] MEDS: amLODIPine Besylate 10 MG TABLET PO (08:06)
[2024-06-09] MEDS: Cholecalciferol (Vitamin D3) 10 MCG TABLET 20 MCG PO (08:06)
[2024-06-09] MEDS: Docusate Sodium 100 MG CAPSULE PO ×2 (08:06→21:04)
[2024-06-09] MEDS: Sennosides 8.6 MG TABLET PO (08:06)
[2024-06-09] MEDS: 0.9 % Sodium Chloride Flush 3 ML SYRINGE IVFLUSH ×3 (08:06→21:05)
[2024-06-09] MEDS: polyethylene glycoL 3350 17 GM POWD.PACK PO (08:06)
[2024-06-09] MEDS: Finasteride 5 MG TABLET PO (08:06)
--- NOTE | 2024-06-09 10:43 | P.PNIM_ITS ---
Subjective Subjective Date of Service: 06/09/24 Interval History: Seen and examined this morning Follow-up for bladder outlet obstruction, JANINA, hematuria On CBI, Salcedo pink tinged No abdominal pain, nausea, vomiting Review of Systems Review of Systems: Yes all other systems are reviewed and are negative Constitutional Constitutional: Denies chills and Denies fever(s) Cardiovascular Cardiovascular: Denies chest pain, Denies palpitations and Denies dyspnea Respiratory Respiratory: Denies cough and Denies dyspnea Gastrointestinal Gastrointestinal: Denies abdominal pain Endocrine Endocrine: Denies palpitations Physical Exam 2 Vital Signs: Vital Signs: Last Vital Signs Temp 97.8 F 06/09/24 08:00 Pulse 75 06/09/24 02:48 Resp 18 06/09/24 08:00 BP 133/79 06/09/24 08:06 Pulse Ox 96 06/09/24 08:00 O2 Del Method Room Air 06/09/24 08:00 O2 Flow Rate 0 06/06/24 19:20 BMI result Body Mass Index 23.5 Const: General: cooperative, comfortable, no acute distress, alert and awake Nutritional Appearance: average body habitus Orientation/consciousness: p atient oriented x3 Resp: Effort & Inspection: normal respiratory effort and able to speak in complete sentences Cardio: Rate: regular rate GI: Inspection: No distended Palpation (GI): Soft to palpation : Other: Salcedo in place - hematuria; b/l nephrostomy tubes draining clear Neuro: Other: Grossly nonfocal General: patient oriented x3 Extrem: General: Yes no pedal edema Objective Data Active Medications Acetaminophen (Acetaminophen 325 Mg Tablet) 650 mg PO Q6H PRN PRN Reason: Pain, Mild (Pain Scale 1-3), fever or headache Amlodipine Besylate (Amlodipine Besylate 10 Mg Tablet) 10 mg PO DAILY [facility]; Protocol Last Admin: 06/09/24 08:06 Dose: 10 mg Documented By: OTILIO Calcium Carbonate (Calcium Carbonate 750 Mg Tab.Chew) 750 mg PO Q4H PRN PRN Reason: Heartburn Docusate Sodium (Docusate Sodium 100 Mg Capsule) 100 mg PO BID [facility] Last Admin: 06/09/24 08:06 Dose: 100 mg Documented By: OTILIO Doxazosin Mesylate (Doxazosin Mesylate 1 Mg Tablet) 1 mg PO BEDTIME [facility]; Protocol Last Admin: 06/08/24 19:38 Dose: 1 mg Documented By: NORI Finasteride (Finasteride 5 Mg Tablet) 5 mg PO DAILY [facility] Last Admin: 06/09/24 08:06 Dose: 5 mg Documented By: OTILIO Heparin Sodium (Porcine) (Heparin Sodium,Porcine 5,000 Unit/Ml Vial) 5,000 unit SUBCUT Q12H [facility] Last Admin: 06/08/24 05:23 Dose: 5,000 unit Documented By: NORI Levofloxacin (Levaquin) 500 mg in 100 mls @ 100 mls/hr IV Q48H [facility] Last Infusion: 06/07/24 14:07 Dose: Infused Documented By: SALMA Magnesium Hydroxide (Milk Of Magnesia 30 Ml Oral.Susp) 30 ml PO DAILY PRN PRN Reason: Constipation Last Admin: 06/07/24 17:08 Dose: 30 ml Documented By: SALMA Melatonin (Melatonin 3 Mg Tablet) 6 mg PO BEDTIME PRN PRN Reason: Insomnia Polyethylene Glycol (Polyethylene Glycol 3350 17 Gm Powd.Pack) 17 gm PO DAILY [facility] Last Admin: 06/09/24 08:06 Dose: 17 gm Documented By: OTILIO Senna (Sennosides 8.6 Mg Tablet) 8.6 mg PO DAILY [facility] Last Admin: 06/09/24 08:06 Dose: 8.6 mg Documented By: OTILIO Sodium Chloride (0.9 % Sodium Chloride Flush 3 Ml Syringe) 3 ml IVFLUSH QSHIFT [facility] Last Admin: 06/09/24 08:06 Dose: 3 ml Documented By: OTILIO Vitamin D (Cholecalciferol (Vitamin D3) 10 Mcg Tablet) 20 mcg PO DAILY [facility] Last Admin: 06/09/24 08:06 Dose: 20 mcg Documented By: OTILIO Labs 06/08/24 11:28 06/09/24 05:37 Labs: Laboratory Results - last 24 hr 06/08/24 06/09/24 11:28 05:37 MCV 86.2 MCH 30.1 MCHC 34.9 RDW 13.2 Plt Count 489 H MPV 8.7 L Absolute Nucleated RBC 0.000 Nucleated RBC % (auto) 0.0 Hold Purple Top SEE NOTE Anion Gap 14 Estim Creat Clear Calc 16.1 Estimated GFR 16 Random Glucose 88 Calcium 8.8 Assessment and Plan (1) Hematuria: Status: Acute (2) Vitamin D deficiency: Status: Acute (3) Secondary hyperparathyroidism (of renal origin): Status: Acute (4) Acute kidney injury superimposed on CKD: Status: Acute Plan 74-year-old man admitted with JANINA secondary to bladder outlet obstruction, patient has not been to pcp or hospital for more than 10 years Bladder outlet obstruction Secondary to prostatomegaly Salcedo catheter placed and draining Urology following>finesteride, cardura added per urology recommendation Repeat renal ultrasound showing persistent b/l hydronephrosis, 06/05/24 attempted clot evacuation and retrograde unsuccessful s/p Bilateral percutaneous nephrostomy tubes placed by IR 06/06 hematuria improving with CBI hold heparin CBC stable Constipation. Resolved continue senna and colace prn miralax Urinary tract infection Likely secondary to bladder outlet obstruction Urine culture growing Enterobacter cloacae IV levofloxacin 06/01 (renal dosing) - plan for 10 days total, end date 06/10 Blood cultures negative JANINA on CKD 4 Unknown baseline, SCr beginning to trend down secondary to bladder outlet obstruction Salcedo catheter in place Follow creatinine closely Nephrology> will need outpatient follow-up, no need for dialysis at this time Anion gap metabolic acidosis due to JANINA improved Hyponatremia secondary to bladder outlet obstruction and JANINA nephrology following follow BMP Elevated blood pressure reading. Trending down No history of hypertension and not on any medications continue amlodipine 10 mg DVT prophylaxis -heparin on hold for hematuria, mechanical devices Full code Requires ongoing inpatient stay for close monitoring of kidney function, sodium levels and CBI for hematuria, specialist monitoring Quality Stroke Does the patient have a stroke diagnosis?: No VTE Prior VTE?: No VTE Risk Level:: Medical - moderate - high VTE Device Contraindication: N/A - Device Ordered VTE Drug Contraindication: N/A - Med Ordered
--- NOTE | 2024-06-09 10:49 | MHC.CM.PN ---
Per hospitalist, patient not medically cleared for dc at this time. CM will continue to follow.
[2024-06-09 11:00] VITALS: BP 120/70; PULSE 67; RESP 18; TEMP 36.6; O2SAT 97
[2024-06-09] MEDS: levoFLOXacin/D5W 500 MG/100 ML PIGGYBACK 100 MG IV (12:24)
--- NOTE | 2024-06-09 14:05 | P.PNNP_ITS ---
Subjective Subjective Date of Service: 06/09/24 Interval history: Seen and examined this morning Follow-up for bladder outlet obstruction, JANINA, hematuria On CBI, Salcedo pink tinged No abdominal pain, nausea, vomiting Physical Exam 2 Vital Signs: Vital Signs: Last Vital Signs Temp 97.9 F 06/09/24 11:00 Pulse 67 06/09/24 11:00 Resp 18 06/09/24 11:00 BP 120/70 06/09/24 11:00 Pulse Ox 97 06/09/24 11:00 O2 Del Method Room Air 06/09/24 11:00 O2 Flow Rate 0 06/06/24 19:20 BMI result Body Mass Index 23.5 Const: General: comfortable and no acute distress O rientation/consciousness: patient oriented x3 HEENT: Head: Yes normocephalic Mouth: Normal oral and palatal mucosa present Eyes: EOM: EOMs intact bilaterally Neck: Neck: Yes supple Resp: Auscultation: clear to auscultation bilaterally and diminished lung sounds Cardio: Jugular venous distension: no JVD Rate: regular rate GI: Palpation (GI): Soft to palpation Auscultation: normal bowel sounds : General: Yes no CVA tenderness Back/Spine/Pelvis: Back: no CVA tenderness Skin: General skin exam: no rashes or lesions noted Neuro: General: patient oriented x3 and moves all extremities Extrem: General: Yes no pedal edema Objective Data Labs 06/08/24 11:28 06/09/24 05:37 Labs: Laboratory Results - last 24 hr 06/09/24 05:37 Hold Purple Top SEE NOTE Sodium 127 L Potassium 4.3 Chloride 94 L Carbon Dioxide 23 Anion Gap 14 BUN 82 H Creatinine 3.72 H Estim Creat Clear Calc 16.1 Estimated GFR 16 Random Glucose 88 Calcium 8.8 Microbiology Microbiology Results: Microbiology 05/29/24 17:41 Blood - Venous Blood Culture - Final No growth after 5 days. 05/29/24 17:41 Blood - Venous Blood Culture - Final No growth after 5 days. 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 UO good; CT findings reviewed; F/U USS- B/L [place] No ACEI/ARB for now; Amlodipine 10 mg daily; ; No NSAID's Creatinine is improving Delayed recovery No indication for dialysis Mild hyponatremia Restrict hypotonic fluids Time Spent With Patient Time: Total time managing care of this patient today ____ minutes. Progress Note: Quality Stroke Does the patient have a stroke diagnosis?: No
[2024-06-09 15:24] VITALS: BP 120/67; PULSE 70; RESP 20; TEMP 36.2; O2SAT 97
[2024-06-09 19:26] VITALS: BP 124/72; PULSE 74; RESP 20; TEMP 36.4; O2SAT 97
[2024-06-09] MEDS: Doxazosin Mesylate 1 MG TABLET PO (21:04)
[2024-06-10] VITALS (7 sets, daily range): BP systolic 112–137; BP diastolic 56–85; PULSE 69–79; RESP 16–18; TEMP 36–36.3; O2SAT 97–99
[2024-06-10] MEDS: Finasteride 5 MG TABLET PO (08:43)
[2024-06-10] MEDS: 0.9 % Sodium Chloride Flush 3 ML SYRINGE IVFLUSH ×3 (08:43→20:25)
[2024-06-10] MEDS: Docusate Sodium 100 MG CAPSULE PO ×2 (08:43→20:25)
[2024-06-10] MEDS: amLODIPine Besylate 10 MG TABLET PO (08:43)
[2024-06-10] MEDS: Sennosides 8.6 MG TABLET PO (08:43)
[2024-06-10] MEDS: Cholecalciferol (Vitamin D3) 10 MCG TABLET 20 MCG PO (08:44)
[2024-06-10] MEDS: polyethylene glycoL 3350 17 GM POWD.PACK PO (08:44)
[2024-06-10 09:03] LABS: Hemoglobin 11.2 g/dl (14.0-18.0); Mean Corpuscular HGB Conc 33.9 g/dl (31.0-36.0); Mean Corpuscular Hemoglobin 29.5 pg (27.0-33.0); Mean Corpuscular Volume 86.8 fL (80.0-98.0); Mean Platelet Volume 8.4 fL (9.4-12.4); Platelet Count 464 X10*3/uL (160-400); White Blood Count 8.4 X10*3/uL (4.8-10.8)
[2024-06-10 09:20] LABS: Anion Gap 15 (12-20); Blood Urea Nitrogen 82 mg/dL (9-16); Calcium 8.9 mg/dL (8.4-10.2); Carbon Dioxide 22 mmol/L (22-29); Chloride 93 mmol/L (96-108); Estimated Glomerular Filt Rate 16; Glucose Random 93 mg/dL (60-115); Potassium 4.2 mmol/L (3.3-5.1); Sodium 126 mmol/L (135-145)
--- NOTE | 2024-06-10 09:49 | PC.NURSE ---
CBI clamped as per MAAME [place]
--- NOTE | 2024-06-10 14:14 | HO.PM.IMPN ---
Subjective Subjective Date of Service: 06/10/24 Interval History: seen and examined this morning follow up for renal failure, hematuria No overnight events No specific complaints, no abdominal pain cortes bag clear this am Review of Systems Review of Systems: Yes all other systems are reviewed and are negative Constitutional Constitutional: Denies chills and Denies fever(s) Cardiovascular Cardiovascular: Denies chest pain, Denies palpitations and Denies dyspnea Respiratory Respiratory: Denies cough and Denies dyspnea Gastrointestinal Gastrointestinal: Denies abdominal pain, Denies nausea and Denies vomiting Endocrine Endocrine: Denies palpitations Physical Exam Vital Signs: Vital Signs: Last Vital Signs Temp 96.8 F 06/10/24 10:50 Pulse 69 06/10/24 10:50 Resp 18 06/10/24 10:50 BP 121/74 06/10/24 10:50 Pulse Ox 99 06/10/24 11:00 O2 Del Method Room Air 06/10/24 11:00 O2 Flow Rate 0 06/06/24 19:20 BMI result Body Mass Index 23.5 Const: General: cooperative, comfortable, no acute distress, alert and awake Nutritional Appearance: average body habitus Orientation/consciousness: patient oriented x3 Resp: Effort & Inspection: normal respiratory effort and able to speak in complete sentences Cardio: Rate: regular rate GI: Inspection: No distended Palpation (GI): Soft to palpation : Other: Cortes in place - clear drainage; b/l nephrostomy tubes draining clear Neuro: Other: Grossly nonfocal General: patient oriented x3 Extrem: General: Yes no pedal edema Objective Data Active Medications Acetaminophen (Acetaminophen 325 Mg Tablet) 650 mg PO Q6H PRN PRN Reason: Pain, Mild (Pain Scale 1-3), fever or headache Amlodipine Besylate (Amlodipine Besylate 10 Mg Tablet) 10 mg PO DAILY [facility]; Protocol Last Admin: 06/10/24 08:43 Dose: 10 mg Documented By: DEL Calcium Carbonate (Calcium Carbonate 750 Mg Tab.Chew) 750 mg PO Q4H PRN PRN Reason: Heartburn Docusate Sodium (Docusate Sodium 100 Mg Capsule) 100 mg PO BID [facility] Last Admin: 06/10/24 08:43 Dose: 100 mg Documented By: DEL Doxazosin Mesylate (Doxazosin Mesylate 1 Mg Tablet) 1 mg PO BEDTIME [facility]; Protocol Last Admin: 06/09/24 21:04 Dose: 1 mg Documented By: JOHANNA Finasteride (Finasteride 5 Mg Tablet) 5 mg PO DAILY [facility] Last Admin: 06/10/24 08:43 Dose: 5 mg Documented By: DEL Heparin Sodium (Porcine) (Heparin Sodium,Porcine 5,000 Unit/Ml Vial) 5,000 unit SUBCUT Q12H [facility] Last Admin: 06/08/24 05:23 Dose: 5,000 unit Documented By: NORI Levofloxacin (Levaquin) 500 mg in 100 mls @ 100 mls/hr IV Q48H [facility] Last Infusion: 06/09/24 13:30 Dose: Infused Documented By: OTILIO Magnesium Hydroxide (Milk Of Magnesia 30 Ml Oral.Susp) 30 ml PO DAILY PRN PRN Reason: Constipation Last Admin: 06/07/24 17:08 Dose: 30 ml Documented By: SALMA Melatonin (Melatonin 3 Mg Tablet) 6 mg PO BEDTIME PRN PRN Reason: Insomnia Polyethylene Glycol (Polyethylene Glycol 3350 17 Gm Powd.Pack) 17 gm PO DAILY [facility] Last Admin: 06/10/24 08:44 Dose: 17 gm Documented By: DEL Senna (Sennosides 8.6 Mg Tablet) 8.6 mg PO DAILY [facility] Last Admin: 06/10/24 08:43 Dose: 8.6 mg Documented By: DLE Sodium Chloride (0.9 % Sodium Chloride Flush 3 Ml Syringe) 3 ml IVFLUSH QSHIFT [facility] Last Admin: 06/10/24 08:43 Dose: 3 ml Documented By: DEL Vitamin D (Cholecalciferol (Vitamin D3) 10 Mcg Tablet) 20 mcg PO DAILY [facility] Last Admin: 06/10/24 08:44 Dose: 20 mcg Documented By: DEL Labs 06/10/24 08:54 06/10/24 08:54 Labs: Laboratory Results - last 24 hr 06/10/24 08:54 MCV 86.8 MCH 29.5 MCHC 33.9 RDW 13.0 Plt Count 464 H MPV 8.4 L Absolute Nucleated RBC 0.000 Nucleated RBC % (auto) 0.0 Anion Gap 15 Estim Creat Clear Calc 16.0 Estimated GFR 16 Random Glucose 93 Calcium 8.9 Assessment and Plan (1) Acute kidney injury superimposed on CKD: Status: Acute Plan 74-year-old man admitted with JANINA secondary to bladder outlet obstruction, patient has not been to pcp or hospital for more than 10 years Bladder outlet obstruction Secondary to prostatomegaly Cortes catheter placed and draining Urology following>finesteride, cardura added per urology recommendation Repeat renal ultrasound showing persistent b/l hydronephrosis, 06/05/24 attempted clot evacuation and retrograde unsuccessful s/p Bilateral percutaneous nephrostomy tubes placed by IR 06/06 hematuria cortes clear this am, stop CBI; ok to remove cortes this afternoon per urology hold heparin CBC stable Constipation. Resolved continue senna and colace prn miralax Urinary tract infection Likely secondary to bladder outlet obstruction Urine culture growing Enterobacter cloacae IV levofloxacin 06/01 (renal dosing) - plan for 10 days total, end date 06/10 Blood cultures negative JANINA on CKD 4 Unknown baseline, SCr beginning to trend down secondary to bladder outlet obstruction Cortes catheter in place Follow creatinine closely Nephrology> will need outpatient follow-up, no need for dialysis at this time Anion gap metabolic acidosis due to JANINA improved Hyponatremia secondary to bladder outlet obstruction and JANINA fluid restriction nephrology following follow BMP Elevated blood pressure reading. Trending down No history of hypertension and not on any medications continue amlodipine 10 mg DVT prophylaxis -heparin on hold for hematuria, mechanical devices Full code Requires ongoing inpatient stay for close monitoring of kidney function, sodium levels and CBI for hematuria, specialist monitoring Quality Stroke Does the patient have a stroke diagnosis?: No VTE Prior VTE?: No VTE Risk Level:: Medical - moderate - high VTE Device Contraindication: N/A - Device Ordered VTE Drug Contraindication: N/A - Med Ordered
--- NOTE | 2024-06-10 16:25 | PC.NURSE ---
Salcedo cath removed at 1600 per MAAME [place]
[2024-06-10] MEDS: Doxazosin Mesylate 1 MG TABLET PO (20:25)
[2024-06-11 03:25] VITALS: BP 120/72; PULSE 77; RESP 16; TEMP 36.4; O2SAT 97
[2024-06-11 06:45] LABS: Anion Gap 19 (12-20); Blood Urea Nitrogen 84 mg/dL (9-16); Calcium 9.2 mg/dL (8.4-10.2); Carbon Dioxide 22 mmol/L (22-29); Chloride 92 mmol/L (96-108); Creatinine Clr Calc Pharmacy 15.4; Estimated Glomerular Filt Rate 15; Glucose Random 95 mg/dL (60-115); Potassium 4.1 mmol/L (3.3-5.1); Sodium 129 mmol/L (135-145)
[2024-06-11 07:26] VITALS: BP 130/80; PULSE 75; RESP 18; TEMP 36.3; O2SAT 97
--- NOTE | 2024-06-11 09:32 | PM.DS ---
DS: Providers Provider Date of Service: 06/11/24 Date of admission: 05/29/24 16:17 Date of discharge: 06/11/24 Primary care physician: None Physician Consults: 05/29/24 16:02 Consult to Urology Stat Consulting Provider: [facility] [place] [facility] Reason for consultation: obstructive uropathy, ZACARIAS, UTI Has provider been notified: Yes 05/29/24 16:21 Consult to Nephrology Routine Consulting Provider: [facility] [place] [facility] Reason for consultation: janina Attending physician on discharge: Vipin Meredith Discharging clinician: Tasneem Houston DS: Diagnosis Discharge Diagnosis (1) Acute kidney injury superimposed on CKD: Status: Acute DS: Summary Hospital Course Hospital Course: From H&P on the day of admission 74-year-old man presenting to the ER with complaints of worsening urinary retention. Apparently he has been having difficulty urination and dysuria for the last several years but worsening symptoms over the last year. He reports that he urinates at least 5 times per night and feels like he has to force the urine out and has a very weak stream. He reported some burning with urination over the last few months as well. He reports that he lives with his and he is very active playing sports including soccer. He denied any fever, chills, nausea, vomiting, diarrhea. He reports that he has not seen a doctor in over 10 years. Apparently he went to the urology office today and did not have prior authorization for his visit and he was told to come to the ER for further evaluation. He has multiple noted lab abnormalities including sodium of 129, CO2 16, anion gap 21, creatinine 5.68, AST 59, alk phos 251, positive urinalysis, white blood cell count 13.4. Abdominopelvic CT showed severe bilateral hydronephrosis with enlarged prostate gland and severe prostatomegaly. Diffuse bladder wall thickening and perivascular stranding likely secondary to bladder outlet obstruction. He was also noted to have elevated blood pressure and not on any home medications. In the ER, he received a L of IV fluid, Rocephin, amlodipine. Plan will be to admit for further management and treatment of JANINA secondary to bladder outlet obstruction. JANINA superimposed on chronic kidney disease (with unknown baseline) due to Bladder outlet obstruction Secondary to prostatomegaly Cortes catheter initially placed and draining. seen by Urology and recommended the addition of finesteride, cardura. Repeat renal ultrasound showing persistent b/l hydronephrosis 48 hours after Cortes placement and bilateral stents were recommended. 06/05/24 attempted clot evacuation and retrograde was unsuccessful and thus he underwent Bilateral percutaneous nephrostomy tubes placed by IR 06/06. He had intermittent hematuria and was started on CBI, hematuria cleared. Urology okay for Cortes catheter removal. CBC remained stable. We will need outpatient follow-up with Nephrology for close monitoring of renal function and Urology for management of nephrostomy tube Constipation. Resolved with senna and colace Urinary tract infection Likely secondary to bladder outlet obstruction. Urine culture grew Enterobacter cloacae. He was treated with renally dosed levofloxacin 06/01 (renal dosing) and complete a course during hospitalization. Blood cultures have remained negative to date. Anion gap metabolic acidosis due to JANINA. Resolved Hyponatremia secondary to bladder outlet obstruction and JANINA . Stable with fluid restriction Elevated blood pressure reading No history of hypertension and not on any medications Started on amlodipine 10 mg Patient has first appointment with new PCP Jeffrey Valderrama on June 21. Previously he did not have PCP. He will not be able to obtain VNA services until his first PCP appointment. He recived education on management of nephrostomy tubes. Time Attestation Discharge Coordination Time (in mins): 36 Quality: Safe Use of Opioids Does Pt have an Active Cancer Diagnosis on the Problem List?: No Quality: Stroke Does the patient have a stroke diagnosis?: No Physical Exam Vital Signs: Vital Signs: Last Vital Signs Temp 97.4 F 06/11/24 07:26 Pulse 75 06/11/24 07:26 Resp 18 06/11/24 07:26 BP 130/80 06/11/24 07:26 Pulse Ox 97 06/11/24 07:26 O2 Del Method Room Air 06/11/24 07:26 O2 Flow Rate 0 06/06/24 19:20 BMI result Body Mass Index 23.5 Const: General: cooperative, comfortable, no acute distress, alert and awake Nutritional Appearance: average body habitus Orientation/consciousness: patient oriented x3 Resp: Effort & Inspection: normal respiratory effort and able to speak in complete sentences Cardio: Rate: regular rate GI: Inspection: No distended Palpation (GI): Soft to palpation : Other: cortes removed; b/l nephro tubes in place draining; left side with some blood tinged output. Neuro: Other: Grossly nonfocal General: patient oriented x3 Extrem: General: Yes no pedal edema DS: Data Data Completed and Pending Labs on day of discharge: Laboratory Results - last 24 hr 06/11/24 05:23 Hold Purple Top SEE NOTE Sodium 129 L Potassium 4.1 Chloride 92 L Carbon Dioxide 22 Anion Gap 19 BUN 84 H Creatinine 3.89 H Estim Creat Clear Calc 15.4 Estimated GFR 15 Random Glucose 95 Calcium 9.2 Discharge Plan Discharge Anticipated Discharge Date/Time: 06/11/24 10:33 Patient Disposition: Home, Self-Care Discharge Diagnosis: JANINA Bladder outlet obstruction Hematuria Hyponatremia Referrals: Alan Reynolds MD [Physician] - 1 Week Lang Conner MD [Physician] - 1 Week Physician,None [Primary Care Provider] - 1 Week Discharge Medications: New amlodipine 10 mg Tablet 10 mg PO DAILY 90 Days Qty: 90 0RF Protocol: Hold for SBP< HOLD for SBP < : 90 doxazosin 1 mg Tablet 1 mg PO BEDTIME 90 Days Qty: 90 0RF Protocol: Hold for SBP< HOLD for SBP < : 90 docusate sodium 100 mg Capsule 100 mg PO DAILY Qty: 90 0RF polyethylene glycol 3350 17 gram Powder In Packet 17 g PO DAILY Qty: 30 0RF finasteride 5 mg Tablet 5 mg PO DAILY 90 Days Qty: 90 0RF cholecalciferol (vitamin D3) [Vitamin D3] 10 mcg (400 unit) Tablet 20 mcg PO DAILY 90 Days Qty: 180 0RF Discharge Orders: Discharge Order (Routine); Ordered 06/11/24 Ordered By: Tasneem Houston Activity on Discharge: As tolerated Stand Alone Forms: Patient Portal Discharge page Print Language: Chinese Other Ambulatory Orders: Basic Metabolic Panel (Routine) Timeframe: 1 Week Facility: [facility] - Location: Laboratory Ordered By: Tasneem Houston Care Plan Goals: See below Health Concerns: JANINA on probable CKD due to bladder outlet obstruction Urinary tract infection Constipation Hematuria Metabolic acidosis due to JANINA Hyponatremia Hypertension Plan of Treatment: Take Norvasc as prescribed for blood pressure control Take finasteride and doxazosin as prescribed for prostate. Call to schedule follow-up appointment with Urology Repeat lab work in 1 week. Call to schedule follow-up appointment with Nephrology Take vitamin-D as prescribed Can use MiraLax and Colace for bowel regimen Follow-up with your new primary care provider as scheduled on June 21 recommend to consume no more then 1.5L of water daily Assessment: See discharge summary Discharge Date/Time: 06/11/24 14:47
[2024-06-11] MEDS: 0.9 % Sodium Chloride Flush 3 ML SYRINGE IVFLUSH (10:18)
[2024-06-11] MEDS: Cholecalciferol (Vitamin D3) 10 MCG TABLET 20 MCG PO (10:19)
[2024-06-11] MEDS: Docusate Sodium 100 MG CAPSULE PO (10:19)
[2024-06-11] MEDS: Finasteride 5 MG TABLET PO (10:19)
[2024-06-11] MEDS: Sennosides 8.6 MG TABLET PO (10:19)
[2024-06-11] MEDS: polyethylene glycoL 3350 17 GM POWD.PACK PO (10:19)
[2024-06-11 10:21] VITALS: BP 130/80
[2024-06-11] MEDS: amLODIPine Besylate 10 MG TABLET PO (10:21)
[2024-06-11 11:00] VITALS: BP 104/66; PULSE 87; RESP 16; TEMP 36.2; O2SAT 98
--- NOTE | 2024-06-11 11:27 | MHC.CM.PN ---
pt dcd home self care
--- NOTE | 2024-06-11 15:03 | PC.NURSE ---
Pt for discharge to home with Eden Yang .reviewed with pt and pts the care of bilateral nephrostomy tubes . pt given printout on care of nephrosotomy tubes for at home reference. all questions answered pt and pts accepting of dischage to home , aware of need for follow ups and lab draw ,.
== END 2024-06-11 14:47 | disposition home or self-care (01) | DRG 666 ==
LOC: HO.ED 13:11 → HO.EDOVER 16:26 → HO.S3 18:10
PROVIDERS: Internal Medicine Nephrology; Physician Assistant; Physician Assistant Medical; Physician Assistant Surgical; Student in an Organized Health Care Education/Training Program; Urology; Admitting Provider Nurse Practitioner Acute Care; Emergency Provider Emergency Medicine Emergency Medical Services; Visit Provider Physician Assistant Medical
PROC: 0TJB8ZZ Inspection of Bladder, Via Natural or Artificial Opening Endoscopic (ICD-10-PCS; CPT 52005; principal; 2024-06-05 12:30)
PROC: 0T9130Z Drainage of Left Kidney with Drainage Device, Percutaneous Approach (ICD-10-PCS; principal; 2024-06-06 12:40)
DX: N13.6 Pyonephrosis (principal); E87.1 Hypo-osmolality and hyponatremia; N13.8 Other obstructive and reflux uropathy; E87.20 Acidosis, unspecified; N17.0 Acute kidney failure with tubular necrosis; N25.81 Secondary hyperparathyroidism of renal origin; N18.9 Chronic kidney disease, unspecified; I12.9 Hypertensive chronic kidney disease with stage 1 through stage 4 chronic kidney disease, or unspecified chronic kidney disease; N40.1 Benign prostatic hyperplasia with lower urinary tract symptoms; R33.8 Other retention of urine; K59.00 Constipation, unspecified
CPT/HCPCS: 36415; 50432; 74176; 76775; 80048; 80053; 80076; 81001; 82306; 82570; 82784; 83036; 83605; 83735; 83935; 83970; 84100; 84300; 84443; 85025; 85027; 85610; 86334; 87040; 87086; 87088; 87186; 99152; 99153; 99285; C1758; C1769; C1887; C1894; J0696; J1100; J1644; J1956; J2405; J2704; J3010; J7120; Q9967

== ENCOUNTER 2024-05-29 16:17 | Outpatient (BNV) | payer OTHER, SELFPAY | END 2024-06-06 14:12 | PROVIDERS: Admitting Provider Nurse Practitioner Acute Care; Emergency Provider Emergency Medicine Emergency Medical Services; Visit Provider Student in an Organized Health Care Education/Training Program | DX: N13.8 Other obstructive and reflux uropathy (principal) | CPT/HCPCS: 50432 ==

== ENCOUNTER → 2024-05-29 16:17 | Outpatient (BNV) | payer OTHER, SELFPAY | PROVIDERS: Admitting Provider Nurse Practitioner Acute Care; Emergency Provider Emergency Medicine Emergency Medical Services; Visit Provider Internal Medicine Nephrology | DX: N17.9 Acute kidney failure, unspecified (principal); N18.9 Chronic kidney disease, unspecified; N25.81 Secondary hyperparathyroidism of renal origin; E55.9 Vitamin D deficiency, unspecified | CPT/HCPCS: 99223; 99232 ==

== ENCOUNTER → 2024-05-29 16:17 | Outpatient (BNV) | payer OTHER, SELFPAY | PROVIDERS: Admitting Provider Nurse Practitioner Acute Care; Emergency Provider Emergency Medicine Emergency Medical Services; Visit Provider Urology | DX: R31.9 Hematuria, unspecified (principal); N13.30 Unspecified hydronephrosis | CPT/HCPCS: 52001; 74420; 99222 ==

== ENCOUNTER → 2024-05-29 16:17 | Outpatient (BNV) | payer OTHER, SELFPAY | PROVIDERS: Admitting Provider Nurse Practitioner Acute Care; Emergency Provider Emergency Medicine Emergency Medical Services; Visit Provider Nurse Practitioner Acute Care | DX: N17.9 Acute kidney failure, unspecified (principal); N18.9 Chronic kidney disease, unspecified | CPT/HCPCS: 99223; 99232; 99239 ==

== ENCOUNTER 2024-06-21 08:21 | Outpatient (REF) | payer OTHER, SELFPAY ==
[2024-06-21 09:59] LABS: Anion Gap 12 (12-20); Blood Urea Nitrogen 47 mg/dL (9-16); Calcium 8.1 mg/dL (8.4-10.2); Carbon Dioxide 24 mmol/L (22-29); Chloride 106 mmol/L (96-108); Estimated Glomerular Filt Rate 28; Glucose Random 92 mg/dL (60-115); Potassium 4.1 mmol/L (3.3-5.1); Sodium 138 mmol/L (135-145)
== END 2024-06-21 08:22 | disposition home or self-care (01) ==
LOC: HO.LAB 08:21
PROVIDERS: PCP Internal Medicine Geriatric Medicine; Visit Provider Physician Assistant Medical
DX: N18.9 Chronic kidney disease, unspecified (principal); N17.9 Acute kidney failure, unspecified
CPT/HCPCS: 36415; 80048

== ENCOUNTER 2024-06-23 15:25 | Outpatient (AMB) | payer OTHER, SELFPAY ==
--- NOTE | 2024-06-23 15:26 | HO.NEPHOV_ITS ---
Vital Signs 06/23/24 15:27 Height 5 ft 4 in Weight 159 lb 8 oz BMI 27.4 BP 132/52 L Blood Pressure Location Rt brachial Position Sitting Pulse 77 Pulse Source Pulse Oximeter Pulse Oximetry (%) 96 Oxygen Delivery Method Room Air Intake Visit Reasons: Discharged 06/11/24-[facility] Dispatcher Maintenance Service Required: No Accompanied by: Spouse Allergies No Known Allergies Allergy (Verified 06/23/24 15:29) HPI Comments Details: 74-year-old man with worsening urinary retention was seen in ER recently and was found to have JANINA. His creatinine was 5.[address] showed severe bilateral hydronephrosis with enlarged prostate gland and severe prostatomegaly. Diffuse bladder wall thickening and perivascular stranding likely secondary to bladder outlet obstruction. He was also noted to have elevated blood pressure and not on any home medications. Salcedo catheter in tially was placed and draining. seen by Urology and recommended the addition of finesteride, cardura. Repeat renal ultrasound showing persistent b/l hydronephrosis 48 hours after Salcedo placement and bilateral stents were recommended. 06/05/24 attempted clot evacuation and retrograde was unsuccessful and thus he underwent Bilateral percutaneous nephrostomy tubes placed by IR 06/06. His nephrostomy tubes are draining well. His serum creatinine has been improving. He is due to see Urology next week. He was accompanied by his during this visit. He denied hematuria, fever, flank pain, nausea, vomiting, chills or rigor. He feels improved. [facility] Medical History Enlarged prostate HTN (hypertension) Surgical History No pertinent past surgical history Social History Household Members: Significant Other Housing: House Do you presently have visiting nurse or other home services: No Patient Tobacco Use Status: Never used Tobacco service: No Review of Systems Const All systems reviewed & are unremarkable except as noted in HPI and below Physical Exam Vital Signs: Last Vital Signs Pulse 77 06/23/24 15:27 BP 132/52 L 06/23/24 15:27 Pulse Ox 96 06/23/24 15:27 Oxygen Delivery Method Room Air 06/23/24 15:27 BMI result Body Mass Index 27.4 Const General: comfortable and no acute distress Orientation/consciousness: patient oriented x3 HEENT Head: Yes normocephalic Mouth: Normal oral and palatal mucosa present Eyes EOM: EOMs intact bilaterally Neck Neck: Yes supple Resp Auscultation: clear to auscultation bilaterally Cardio Jugular venous distension: no JVD Rate: regular rate GI Palpation (GI): Soft to palpation Auscultation: normal bowel sounds Other: B/L nephrostomy in place Skin General skin exam: no rashes or lesions noted Neuro General: patient oriented x3 and moves all extremities Extrem General: Yes no pedal edema Results Reviewed Nephrology Results: Hgb 11.2 g/dl (14.0-18.0) L 06/10/24 WBC 8.4 X10*3/uL (4.8-10.8) 06/10/24 Plt Count 464 X10*3/uL (160-400) H 06/10/24 Sodium 138 mmol/L (135-145) 06/21/24 Potassium 4.1 mmol/L (3.3-5.1) 06/21/24 Chloride 106 mmol/L (96-108) 06/21/24 Carbon Dioxide 24 mmol/L (22-29) 06/21/24 BUN 47 mg/dL (9-16) H 06/21/24 Creatinine 2.28 mg/dL (0.5-1.4) H 06/21/24 Calcium 8.1 mg/dL (8.4-10.2) L 06/21/24 Phosphorus 5.3 mg/dL (2.7-4.5) H 05/31/24 PTH Intact 194.8 pg/mL (8.7-77.1) H 05/31/24 Urine Protein 100 (2+) mg/dL (Neg-Trace) H 05/29/24 Urine Creatinine 65.57 mg/dL 05/29/24 Renal US 06/01/24 Assessment & Plan Assessment & Plan (1) Acute kidney injury superimposed on CKD: Code(s): N17.9 - Acute kidney failure, unspecified; N18.9 - Chronic kidney disease, unsp ecified Category: Medical (2) Secondary hyperparathyroidism (of renal origin): Code(s): N25.81 - Secondary hyperparathyroidism of renal origin Category: Medical (3) Hypertension: Code(s): I10 - Essential (primary) hypertension Category: Medical Qualifiers: Hypertension type: unspecified Qualified Code(s): I10 - Essential (primary) hypertension Plan CKD from obstructive uropathy Had JANINA on CKD due to urinary retention Has B/L nephrostomies. UO good in the nephrostomy bags No ACEI/ARB for now; Amlodipine 10 mg daily;Has Urology F/U On Vitamin D; No NSAID's; Continue current dose of Amlodipine No NSAID's and good hydration.Renal functions improving F/U labs ordered; Answered all questions. F/U given Medications: Discontinued docusate sodium Discontinued Reason: Patient no longer taking 100 mg PO DAILY 90 caps 0RF Coding Level of Care Code Est Pt Level 4 (61881) Diagnoses Acute kidney injury superimposed on CKD N17.9; N18.9 Secondary hyperparathyroidism (of renal origin) N25.81 Hypertension I10 Hypertension type: unspecified
[2024-06-23 15:27] VITALS: BP 132/52; PULSE 77; O2SAT 96; BMI 27.4
== END 2024-06-23 15:53 | disposition home or self-care (01) ==
PROVIDERS: Visit Provider Internal Medicine Nephrology
DX: N17.9 Acute kidney failure, unspecified (principal); I12.9 Hypertensive chronic kidney disease with stage 1 through stage 4 chronic kidney disease, or unspecified chronic kidney disease; N18.9 Chronic kidney disease, unspecified; N25.81 Secondary hyperparathyroidism of renal origin
CPT/HCPCS: 99214

== ENCOUNTER → 2024-06-23 15:25 | Outpatient (BNVA) | payer OTHER, SELFPAY | PROVIDERS: Visit Provider Internal Medicine Nephrology ==

== ENCOUNTER 2024-06-28 08:27 | Outpatient (AMB) | payer OTHER, SELFPAY ==
--- NOTE | 2024-06-28 08:39 | A.OFFVIS_ITS ---
Intake Visit Reasons: Cysto/ Voiding trial Intake Note: Patient is present for Cystoscopy/voiding trail Urology Medication:finasteride, doxazosin Antibiotic Allergy:none Blood Thinner:none Lot:[id number] Exp:08/21/27 Patient stated that Catheter was removed previously at Hospital Patient states there was no issues with urination after Catheter was removed. PVR: 63ML Mixer Slagman Required: No Allergies No Known Allergies Allergy (Verified 06/28/24 08:41) HPI Comments Details: Brandon is a pleasant male. He is seen for the following urologic conditions - lower urinary tract symptoms - bilateral hydronephrosis Recent admission to hospital Found with urinary retention Acute renal insult with creatinine 5.[address] showed bilateral hydronephrosis with significant prostatomegaly and diffuse bladder wall thickening Salcedo catheter placed. Bilateral percutaneous nephrostomy tubes placed. Tubes draining well with slow resolution in creatinine Cystoscopy performed today Extremely large prostate Recommend GreenLight laser prostatectomy with suprapubic tube placement. Internalization of nephrostomy tubes. There is the potential for bladder recovery however this may well be prolonged [facility] Medical History (Updated 06/29/24 @ 09:21 by Alan Reynolds MD) Enlarged prostate with urinary obstruction Bladder outlet obstruction Hematuria Vitamin D deficiency Secondary hyperparathyroidism (of renal origin) Acute kidney injury superimposed on CKD Hypertension Renal failure Urinary tract infection Enlarged prostate HTN (hypertension) Surgical History No pertinent past surgical history Social History Household Members: Significant Other Housing: House Do you presently have visiting nurse or other home services: No Patient Tobacco Use Status: Never used Tobacco service: No Review of Systems Const Denies chills and Denies fever(s) Card Reports no additional complaints and Denies syncope Resp Denies cough GI Denies abdominal pain and Denies heartburn Reports as per HPI and Denies change in libido Neuro Denies syncope Psych Denies change in libido Endo Denies change in libido Physical Exam Const General: cooperative, healthy appearing, comfortable and no acute distress Orientation/consciousness: patient oriented x3 HEENT Face and sinus: Yes normal facial exam Mouth: moist mucous membranes Neck Neck: Yes normal visual inspection, Yes full ROM and Yes trachea midline Chest Chest palpation & inspection: normal inspection of the chest Resp Effort & Inspection: normal respiratory effort, able to speak in complete sentences and no respiratory distress GI Inspection: Yes normal to inspection Back/Spine/Pelvis Cervical Spine: normal cervical lordosis Thoracic/Lumbar Spine: thoracic and lumbar spine normal to inspection Skin General skin exam: no rashes or lesions noted Neuro General: patient oriented x3, gait normal, tone normal and moves all extremities Extrem General: Yes normal to inspection and Yes capillary refill normal Office Procedures Cystoscopy Consent Discussed risk and benefit or proposed procedure with the patient. Information consent for procedure given to the patient. Discussed technical aspects, risks, benefits and alternatives in full. Addressed all of the patient's questions and concerns regarding the procedure. The patient demonstrated knowledge and understanding. They wish to proceed with this procedure. Preparation The patient was prepped in the usual manner. A work order sorting clerk was present and in the room. Genitalia was prepped with betadine solution in a sterile manner. Lidocaine Jelly 2% was placed into the urethra and 16Fr flexible Olympus cystoscope was inserted into the meatus after adequate lubrication. Procedure Cystoscopy performed using a disposable Urovue digital 16 Canadian cystoscope. Meatus normal position Urethra anterior and posterior urethra normal Prostatic Urethra trilobar hyperplasia Bladder examination with retroflexion of cystoscope Bladder Orifices normal shape and position Bladder Capacity large Trabeculations grade 3 Cellule Formation yes Diverticulum Formation - Mucosal Erythema - Bladder Tumor - 95753-[id number] DISPOSABLE SCOPE URO-G FLEXIBLE SCOPE Procedure code (CPT) selection complete Post Void Residual Post Residual Void Post Void Residual (PVR): 63 [id number] Void Residual by ultrasound Office Meds lidocaine HCl 2 % mucosal jelly in applicator Performing Provider: Alan Reynolds MD Performing Location: [facility] [place] [facility] Administered by: Han Perez LPN on 06/28/24 08:58 Dose Route Admin Location Dispensed Lot Number Expiration Date [facility] Pumper Hand 10 mL intra-urethral 10 mL nitrofurantoin monohydrate/macrocrystals 100 mg capsule Performing Provider: Alan Reynolds MD Performing Location: [facility] [place] [place] Administered by: Han Perez LPN on 06/28/24 08:58 Dose Route Admin Location Dispensed Lot Number Expiration Date [facility] Pumper Hand 100 mg PO 1 cap naproxen 500 mg tablet Performing Provider: Alan Reynolds MD Performing Location: [facility] [place] Administered by: Han Perez LPN on 06/28/24 08:58 Dose Route Admin Location Dispensed Lot Number Expiration Date [facility] Pumper Hand 500 mg PO 1 tab Results AMB Urinalysis, Automated UA Leukoctes 0 [place]/uL Last Edit by NASIR Patricio on 06/28/24 08:56 UA Nitrite Positive Last Edit by NASIR Patricio on 06/28/24 08:56 UA Urobilinogen 0.2 mg/dL Last Edit by NASIR Patricio on 06/28/24 08:5 6 UA Protein 100 mg/dL Last Edit by NASIR Patricio on 06/28/24 08:56 UA pH 6.0 Last Edit by NASIR Patricio on 06/28/24 08:56 UA Blood 80 Kai/uL Last Edit by NASIR Patricio on 06/28/24 08:56 UA Specific [place] 1.020 Last Edit by NASIR Patricio on 06/28/24 08: 56 UA Ketone Negative Last Edit by NASIR Patricio on 06/28/24 08:56 UA Bilirubin 0 mg/dL Last Edit by NASIR Patricio on 06/28/24 08:56 UA Glucose 0 mg/dL Last Edit by NASIR Patricio on 06/28/24 08:56 Results Reviewed Results Reviewed: Laboratory Last Values Urine pH (Auto) 6.0 06/28/24 08:55 Specific [place] (Auto) 1.020 06/28/24 08:55 Urine Protein (Auto) 100 mg/dL 06/28/24 08:55 Glucose (UA)(Auto) 0 mg/dL 06/28/24 08:55 Urine Ketones (Auto) Negative 06/28/24 08:55 Urine Blood (Auto) 80 Kai/uL 06/28/24 08:55 Urine Nitrite (Auto) Positive 06/28/24 08:55 Urine Bilirubin (Auto) 0 mg/dL 06/28/24 08:55 Urine Urobilinogen (Auto) 0.2 mg/dL 06/28/24 08:55 Leukocyte Esterase (Auto) 0 [place]/uL 06/28/24 08:55 Assessment & Plan Assessment & Plan (1) Hydronephrosis: Code(s): N13.30 - Unspecified hydronephrosis Category: Medical (2) Bladder outlet obstruction: Code(s): N32.0 - Bladder-neck obstruction Category: Medical (3) Enlarged prostate with urinary obstruction: Code(s): N40.1 - Benign prostatic hyperplasia with lower urinary tract symptoms; N13.8 - Other obstructive and reflux uropathy Category: Medical Plan We discussed the nature of the decision and reasonable options for performing a prostate intervention. Interventions include TURP, GreenLight laser enucleation of the prostate, GreenLight laser ablation of the prostate, transurethral incision of the prostate, and I-Tend prostate procedure. Options such as medical therapy were discussed. The relative uncertainties and benefits related to each alternate procedure were adequately discussed. General surgical risks including, but not limited to, pain, bleeding, infection, myocardial infarction, pulmonary embolus, deep vein thrombosis and cerebrovascular accident which may result in further hospitalization were discussed. Full disclosure of the procedure as well as all major risks, benefits and complications were discussed including but not limited to damage to the urethra or bladder neck, recurrent BPH, retrograde ejaculation, bladder infection, urge, de jerrod frequency, incomplete emptying, dysuria, remote chance of erectile dysfunction, epididymitis, and meatal stenosis. The success rate of the procedure was discussed. Success of the procedure in the short-term does not necessarily guarantee that long-term success will be maintained. Suitable follow up will need to be maintained. The patient showed understanding of discussion. An opportunity was provided for questions to be answered and wishes to proceed with the following procedure. - GreenLight laser prostatectomy, suprapubic tube, nephrostomy tube internalization Orders: Orders AMB Urinalysis Automated 06/28/24 Z13.9 - Encounter for screening, unspecified AMB Cystoscopy 06/28/24 N13.8 - Other obstructive and reflux uropathy, N30.01 - Acute cystitis with hematuria, N32.0 - Bladder-neck obstruction, N40.1 - Benign prostatic hyperplasia with lower urinary tract symptoms, R31.9 - Hematuria, unspecified AMB Post Void Residual by ultrasound 06/28/24 N13.8 - Other obstructive and reflux uropathy, N40.1 - Benign prostatic hyperplasia with lower urinary tract symptoms Patient Instructions: Imaging studies, laboratory and physical exam results were discussed and reviewed in detail. No major barriers to patient understanding were identified. An opportunity to ask questions regarding the treatment plan was provided. All questions were answered. The patient expressed understanding and agreement with the above treatment plan. The patient is aware they should contact our office by phone for worsening of their current condition or the appearance of new urologic symptoms. Compliance is encouraged with any medications and followup testing that is ordered. It is a privilege to participate in the urologic care of your patient. If you have any questions or concerns regarding treatment for the above conditions, or other urologic issues, please do not hesitate to contact me. The office telephone contact is [phone]. This note is constructed using voice recognition software. While every effort has been made to ensure accuracy artificial limb maker errors may have been included. Yours sincerely, Dr Alan Reynolds MD, [facility]rology Providers of Expert, Compassionate Care for the Genitourinary System Coding Level of Care Code Est Pt Level 4 (45896) Diagnoses Hydronephrosis N13.30 Bladder outlet obstruction N32.0 Enlarged prostate with urinary obstruction N40.1; N13.8 CPT Codes Cystoscopy - CPT: 27452-Prizlgoxun ([id number]) Post Residual Void - PVR CPT Code: 12020-Kcxw Void Residual by ultrasound ([id number])
== END 2024-06-28 10:16 | disposition home or self-care (01) ==
PROVIDERS: Visit Provider Urology
DX: R31.9 Hematuria, unspecified (principal); N40.1 Benign prostatic hyperplasia with lower urinary tract symptoms; N13.8 Other obstructive and reflux uropathy; N32.0 Bladder-neck obstruction; N30.01 Acute cystitis with hematuria; Z13.9 Encounter for screening, unspecified
CPT/HCPCS: 52000; 99214

== ENCOUNTER → 2024-06-28 08:27 | Outpatient (BNVA) | payer OTHER, SELFPAY | PROVIDERS: Visit Provider Urology | DX: N13.30 Unspecified hydronephrosis (principal); N32.0 Bladder-neck obstruction; N40.1 Benign prostatic hyperplasia with lower urinary tract symptoms; N13.8 Other obstructive and reflux uropathy | CPT/HCPCS: 51798; 52000; 81003 ==

== ENCOUNTER 2024-07-21 13:42 | Outpatient (REF) | payer OTHER, SELFPAY ==
[2024-07-21 17:48] LABS: Anion Gap 12 (12-20); Blood Urea Nitrogen 41 mg/dL (9-16); Carbon Dioxide 20 mmol/L (22-29); Chloride 110 mmol/L (96-108); Estimated Glomerular Filt Rate 24; Glucose Random 125 mg/dL (60-115); Potassium 3.7 mmol/L (3.3-5.1); Sodium 138 mmol/L (135-145)
== END 2024-07-21 13:43 | disposition home or self-care (01) ==
LOC: HO.HHCL 13:42
PROVIDERS: Visit Provider Internal Medicine Geriatric Medicine
DX: N40.1 Benign prostatic hyperplasia with lower urinary tract symptoms (principal); N13.8 Other obstructive and reflux uropathy; N18.4 Chronic kidney disease, stage 4 (severe); I12.9 Hypertensive chronic kidney disease with stage 1 through stage 4 chronic kidney disease, or unspecified chronic kidney disease
CPT/HCPCS: 36415; 80048

== ENCOUNTER 2024-08-07 05:53 | Day surgery (SDC) | payer OTHER, SELFPAY ==
--- NOTE | 2024-08-04 10:19 | HO.ANESPROP2 ---
Documented by User: Amina Langston NP 08/04/24 10:25 HPI - Anesthesia Eval Consult details Narrative: 74yo M for Insertion Nephrostomy Tube, Cystoscopy, Ureteroscopy, Laser Ablation, Insertion Suprapubic Tube s/p Cysto etc 05/2024 with GA-LMA during [facility] [place] for: JANINA superimposed on chronic kidney disease (with unknown baseline) due to Bladder outlet obstruction Secondary to prostatomegaly Salcedo catheter initially placed and draining. seen by Urology and recommended the addition of finesteride, cardura. Repeat renal ultrasound showing persistent b/l hydronephrosis 48 hours after Salcedo placement and bilateral stents were recommended. 06/05/24 attempted clot evacuation and retrograde was unsuccessful and thus he underwent Bilateral percutaneous nephrostomy tubes placed by IR 06/06. He had intermittent hematuria and was started on CBI, hematuria cleared. Urology okay for Salcedo catheter removal. CBC remained stable. We will need outpatient follow-up with Nephrology for close monitoring of renal function and Urology for management of nephrostomy tube PMFSH Active Problems Active Problems: All Active Problems Hydronephrosis (Acute) Bladder outlet obstruction (Acute) Enlarged prostate with urinary obstruction (Acute) Past Medical History Medical History Enlarged prostate with urinary obstruction Bladder outlet obstruction Hematuria Vitamin D deficiency Secondary hyperparathyroidism (of renal origin) Acute kidney injury superimposed on CKD Hypertension Renal failure Urinary tract infection Enlarged prostate HTN (hypertension) Surgical History Surgical History No pertinent past surgical history History of Problems with Anesthesia: No Social History Social History Household Members: Significant Other Housing: House Are you a primary child day care teacher to a significant other at home: No Do you presently have visiting nurse or other home services: No Patient Tobacco Use Status: Never used Tobacco Use of substances other than those prescribed or required for medical reasons: No Have you been hit, kicked, punched, or otherwise hurt by someone within the past year? If so, by whom?: No Are you DNR?: No Advance Directives: No Advance Directives Information Provided: Yes Recently lost weight without trying: No Nutrition Risks: No Nutritional Risk Poor oral hygiene: No service: No Meds Allergies Allergy/AdvReac Type Severity Reaction Status Date / Time No Known Allergies Allergy Verified 08/07/24 06:42 Exam Pertinent Lab Results Pertinent Lab Results: Laboratory Tests 06/10/24 07/21/24 08:54 13:49 WBC 8.4 Hgb 11.2 L Hct 33.0 L Plt Count 464 H Sodium 138 Potassium 3.7 Chloride 110 H Carbon Dioxide 20 L BUN 41 H Creatinine 2.62 H Assessment and Plan Assessment Anesthesia Assessment: Chart Reviewed Final Anesthetic Review History of Problems with Anesthesia: No Documented by User: Angelica Campbell MD 08/07/24 07:49 PMFSH Active Problems Active Problems: All Active Problems Hydronephrosis (Acute) Bladder outlet obstruction (Acute) Enlarged prostate with urinary obstruction (Acute) Acute on chronic renal failure HTN Past Medical History Medical History Enlarged prostate with urinary obstruction Bladder outlet obstruction Hematuria Vitamin D deficiency Secondary hyperparathyroidism (of renal origin) Acute kidney injury superimposed on CKD Hypertension Renal failure Urinary tract infection Enlarged prostate HTN (hypertension) Family History Family history of problems with anesthesia: No Surgical History Surgical History No pertinent past surgical history History of Problems with Anesthesia: No Social History Social History Household Members: Significant Other Housing: House Are you a primary child day care teacher to a significant other at home: No Do you presently have visiting nurse or other home services: No Patient Tobacco Use Status: Never used Tobacco Use of substances other than those prescribed or required for medical reasons: No Have you been hit, kicked, punched, or otherwise hurt by someone within the past year? If so, by whom?: No Are you DNR?: No Advance Directives: No Advance Directives Information Provided: Yes Recently lost weight without trying: No Nutrition Risks: No Nutritional Risk Poor oral hygiene: No service: No Meds Allergies Allergy/AdvReac Type Severity Reaction Status Date / Time No Known Allergies Allergy Verified 08/07/24 06:42 Exam Height,Weight and Vital Signs: Height 5 ft 6 in Weight 73.482 kg Vital Signs Temp Pulse Resp BP Pulse Ox O2 Del Method 08/07/24 07:08 97.5 F 67 14 145/74 H 98 Room Air Pertinent Lab Results Pertinent Lab Results: Laboratory Tests 06/10/24 07/21/24 08:54 13:49 WBC 8.4 Hgb 11.2 L Hct 33.0 L Plt Count 464 H Sodium 138 Potassium 3.7 Chloride 110 H Carbon Dioxide 20 L BUN 41 H Creatinine 2.62 H Airway Mallampati Class: III TM Dist: >3cm Neck ROM: Full Loose/Missing/Broken Teeth: Yes (Missing some teeth. Denies broken or loose teeth) Heart: RRR Lungs: CTAB Assessment and Plan Assessment Anesthesia Assessment: Anesthesia Plan Discussed and Chart Reviewed Final Anesthetic Review Family History of Problems with Anesthesia: No History of Problems with Anesthesia: No NPO: Yes ASA Class: III Final Preanesthetic Review: No Changes in Pt Med Stat, Meds/Allgs Chart Reviewed, Consent Obtained/Reviewed and Anes Risks/Benef Reviewed Patient Risk: Intermediate Procedure Risk: Low Assessment/Block/Sedation in SS: Assess/Block/Sedation-SS Anesthetic Plan Anesthetic Plan: GA Disposition: Standard PACU
[2024-08-07 06:50] VITALS: BMI 26.1
[2024-08-07 07:08] VITALS: BP 145/74; PULSE 67; RESP 14; TEMP 36.4; O2SAT 98
[2024-08-07] MEDS: Lactated Ringers 1,000 ML 100 ML IVCONT (07:09)
--- NOTE | 2024-08-07 07:53 | MHC.SHP ---
Pre-Procedural Eval Section A - 24 Hr Update-Section A only Date of Service: 08/07/24 The patient is an INPATIENT: No Changes since office visit: No Cold of Flu in the past 2 weeks, No New Medical Problems, No Changes in Medication and No Patient answered all questions The patient has been examined within 24 hours of the surgical procedure. The History & Physical has been completed within 30 days and I have reviewed it.: Yes Section B - Complete if H&P > 30 days Chief Complaint: Retention of urine, unspecified Details of Present Illness: bilateral nephrostomy tube internalization, suprapubic tube insertion, greenlight laser prostate Relevant Family History (Specify if Yes): No Relevant Social History: None Present Medications: see Short Stay Collaborative assessment Medical History: Significant History History of Previous Operations: Relevant previous surgery/procedure and date(s) Allergies: Allergies Allergy/AdvReac Type Severity Reaction Status Date / Time No Known Allergies Allergy Verified 08/07/24 06:42 Review of Systems Sugical H&P ROS: Negative: Constitution, Cardiovascular, Respiratory, Neurological, Psychiatric, Hem-Onc, Allergic/Immunologic, Gastrointestinal, Genitourinary, Musculoskeletal, Integumentary, Endocrine and Eyes/Ears/Nose/Throat Exam Surgical H&P Exam: Normal: HEENT, Normal: Heart, Normal: Lungs, Normal: Extremities, Normal: Abdomen, Normal: Skin and Normal: Neurological Plan Diagnosis/Plan: Unchanged I have reviewed the history and physical and performed a pertinent physical examination on my patient. No changes have occurred unless specified. Time Spent With Patient Time: Total time managing care of this patient today ____ minutes.
[2024-08-07 09:37] VITALS: BP 135/77; PULSE 56; RESP 14; TEMP 36.4; O2SAT 98
[2024-08-07 09:42] VITALS: BP 141/77; PULSE 57; RESP 14; O2SAT 98
[2024-08-07 09:47] VITALS: BP 136/77; PULSE 56; RESP 16; O2SAT 97
[2024-08-07 09:52] VITALS: BP 139/74; PULSE 55; RESP 16; O2SAT 97
[2024-08-07 10:07] VITALS: BP 138/75; PULSE 55; RESP 18; TEMP 36.1; O2SAT 98
--- NOTE | 2024-08-24 16:00 | W.PM.OPN ---
Operative Note Operative Note Date of Service: 08/07/24 Narrative: PreOperative Diagnosis: Urinary retention with bilateral J hooking of ureters, bilateral nephrostomy tubes Post Operative Diagnosis: Above Procedure: Attempts to internalize bilateral nephrostomy tubes. 1) left antegrade nephrostogram, attempted internalization, nephrostomy tube change 2) as above for right side 3) cystoscopy with attempted bilateral retrograde 4) suprapubic tube placement Surgeon: Dr Alan Reynolds Anesthesia: LMA Indications for procedure: Initial presentation to hospital with urinary retention and elevated creatinine from J hooking of prostate. Here for internalization of stents and suprapubic tube placed Procedure: After informed consent was verified the patient was brought to the operating room and placed in a supine position. Anesthesia was administered per protocol. The patient was prepped and draped in a sterile fashion. Safety pause time-out was performed. Antibiotics being given. Initial part of procedure was attempt to internalize bilateral nephrostomy tubes Left side tube was accessed 1st. Dressings have been removed. Antegrade nephrostogram was performed. This did show tortuous drainage towards the bladder. An angled Glidewire was used to be placed through the nephrostomy tube. The pigtail was released. The wire was able to be advanced but could not into the bladder. Cystoscopy was then performed with the wire remaining within the renal pelvis. There was very difficult to find the ureteric orifice which was distorted from the pelvic floor bladder anatomy. Decision was made to change nephrostomy tube and replace it. Similar procedure was repeated on the right side and it to suffered from the similar distortion due to the chronic nature of the prostate. Antegrade nephrostogram was performed. Angled Glidewire was placed through the nephrostomy tube and able to be advanced down the ureter but unable to be advanced into the bladder. Given this the nephrostomy tube was replaced. Decision was made to perform suprapubic tube placement. A 22 Spanish cystoscope was inserted per urethra. Bladder was examined in its entirety. No abnormalities seen. Air bubble was located at the dome of the bladder. A finder needle was inserted 2 fingerbreaths above the symphysis pubis on the abdomen into the bladder.? The needle was visualized in the bladder via cystoscopy. Local anesthetic was infiltrated subcutaneously around the needle introduction site. A small, 1cm horizontal incision was made.? A trocar introducer was advanced through the abdominal wall into the bladder under visualization. The obturator was removed and a 16 Fr cortes catheter placed. 7cc was used to inflate the balloon. The external portion of the trocar was removed. Dressing was placed, the bladder was emptied, and a drainage bag was attached. The patient tolerated the procedure and was transferred in stable condition to the recovery area. Suprapubic tube will be changed in 1 month with a follow-up office visit. Pathology: Drains: SPT
== END 2024-08-07 10:47 | disposition home or self-care (01) ==
PROVIDERS: PCP Internal Medicine Geriatric Medicine; Visit Provider Urology
PROC: (CPT 51102; principal; 2024-08-07 07:30)
PROC: (CPT 51102; 2024-08-07 07:30)
PROC: (CPT 51102; 2024-08-07 07:30)
DX: N40.1 Benign prostatic hyperplasia with lower urinary tract symptoms (principal); N13.8 Other obstructive and reflux uropathy; N32.0 Bladder-neck obstruction; N13.30 Unspecified hydronephrosis; I10 Essential (primary) hypertension; Z79.899 Other long term (current) drug therapy
CPT/HCPCS: 51102; 50435; C1758; C1769; J0131; J1956; J2003; J2405; J2704; J2795; J3010; Q9967

== ENCOUNTER → 2024-08-07 05:53 | Outpatient (BNV) | payer OTHER, SELFPAY | PROVIDERS: PCP Internal Medicine Geriatric Medicine; Visit Provider Urology | DX: Z43.6 Encounter for attention to other artificial openings of urinary tract (principal); R33.9 Retention of urine, unspecified | CPT/HCPCS: 50435; 51102 ==

== ENCOUNTER → 2024-08-10 10:35 | Outpatient (BNVA) | payer OTHER, SELFPAY | PROVIDERS: Visit Provider Urology ==

== ENCOUNTER 2024-08-25 10:28 | Outpatient (AMB) | payer OTHER, SELFPAY ==
--- NOTE | 2024-08-25 10:31 | HO.NEPHOV_ITS ---
Vital Signs 08/25/24 10:32 Height 5 ft 6 in Weight 157 lb 8 oz BMI 25.4 BP 134/70 Blood Pressure Location Lt brachial Position Sitting Pulse 75 Pulse Source Pulse Oximeter Pulse Oximetry (%) 99 Oxygen Delivery Method Room Air Intake Visit Reasons: 2Mon F/U-Conf Financial Associate Required: No Accompanied by: Self / Same As Patient Allergies No Known Allergies Allergy (Verified 08/25/24 10:31) HPI Comments Details: 74-year-old man with worsening urinary retention was seen in ER recently and was found to have creatinine of 5.68. Abdominopelvic CT showed severe bilateral hydronephrosis with enlarged prostate gland and severe prostatomegaly. Diffuse bladder wall thickening and perivascular stranding likely secondary to bladder outlet obstruction. He was also noted to have elevated blood pressure and not on any home medications. Salcedo catheter initially was placed and draining. seen by Urology and recommended the addition of finesteride, cardura. Repeat renal ultrasound showing persistent b/l hydronephrosis 48 hours after Salcedo placement and bilateral stents were recommended. 06/05/24 attempted clot evacuation and retrograde was unsuccessful and thus he underwent Bilateral percutaneous nephrostomy tubes placed by IR 06/06. Now she has a supra pubic catheter. He denied hematuria, fever, flank pain, nausea, vomiting, chills or rigor. He feels improved. [facility] Medical History (Updated 08/25/24 @ 10:45 by Lang Conner MD) Secondary hyperparathyroidism (of renal origin) Enlarged prostate with urinary obstruction Bladder outlet obstruction Hematuria Vitamin D deficiency Acute kidney injury superimposed on CKD Hypertension Renal failure Urinary tract infection Enlarged prostate HTN (hypertension) Surgical History No pertinent past surgical history Social History Household Members: Significant Other Housing: House Are you a primary ocular care technologist to a significant other at home: No Do you presently have visiting nurse or other home services: No Patient Tobacco Use Status: Never used Tobacco service: No Review of Systems Const All systems reviewed & are unremarkable except as noted in HPI and below Physical Exam Vital Signs: Last Vital Signs Pulse 75 08/25/24 10:32 BP 134/70 08/25/24 10:32 Pulse Ox 99 08/25/24 10:32 Oxygen Delivery Method Room Air 08/25/24 10:32 BMI result Body Mass Index 25.4 Const General: comfortable and no acute distress Orientation/consciousness: patient oriented x3 HEENT Head: Yes normocephalic Mouth: Normal oral and palatal mucosa present Eyes EOM: EOMs intact bilaterally Neck Neck: Yes supple Resp Auscultation: clear to auscultation bilaterally Cardio Jugular venous distension: no JVD Rate: regular rate GI Palpation (GI): Soft to palpation Auscultation: normal bowel sounds General: Yes no CVA tenderness Back/Spine/Pelvis Back: no CVA tenderness Skin General skin exam: no rashes or lesions noted Neuro General: patient oriented x3 and moves all extremities Extrem General: Yes no pedal edema Results Reviewed Nephrology Results: Sodium 138 mmol/L (135-145) 07/21/24 Potassium 3.7 mmol/L (3.3-5.1) 07/21/24 Chloride 110 mmol/L (96-108) H 07/21/24 Carbon Dioxide 20 mmol/L (22-29) L 07/21/24 BUN 41 mg/dL (9-16) H 07/21/24 Creatinine 2.62 mg/dL (0.5-1.4) H 07/21/24 Calcium 8.0 mg/dL (8.4-10.2) L 07/21/24 Assessment & Plan Assessment & Plan (1) Stage 3b chronic kidney disease (CKD): Code(s): N18.32 - Chronic kidney disease, stage 3b Category: Medical (2) HTN (hypertension): Code(s): I10 - Essential (primary) hypertension Category: Medical Qualifiers: Hypertension type: secondary to other renal disorders Qualified Code(s): I15.1 - Hypertension secondary to other renal disorders (3) Secondary hyperparathyroidism (of renal origin): Code(s): N25.81 - Secondary hyperparathyroidism of renal origin Category: Medical Plan 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 F/U given Orders: Orders Creatinine 3 Months I15.1 - Hypertension secondary to other renal disorders, N18.32 - Chronic kidney disease, stage 3b, N25.81 - Secondary hyperparath yroidism of renal origin Calcium 3 Months I15.1 - Hypertension secondary to other renal disorders, N18.32 - Chronic kidney disease, stage 3b, N25.81 - Secondary hyperparathy roidism of renal origin Vitamin D 25-OH Total 3 Months I15.1 - Hypertension secondary to other renal disorders, N18.32 - Chronic kidney disease, stage 3b, N25.81 - Secondary hyperparathyroidism of renal origin Blood Urea Nitrogen 3 Months I15.1 - Hypertension secondary to other renal disorders, N18.32 - Chronic kidney disease, stage 3b, N25.81 - Secondary hyperparathyroidism of renal origin Electrolytes 3 Months I15.1 - Hypertension secondary to other renal disorders, N18.32 - Chronic kidney disease, stage 3b, N25.81 - Secondary hyperparathyroidism of renal origin Phosphorus 3 Months I15.1 - Hypertension secondary to other renal disorders, N18.32 - Chronic kidney disease, stage 3b, N25.81 - Secondary hyperparathyroidism of renal origin Complete Blood Count Auto Diff 3 Months I15.1 - Hypertension secondary to other renal disorders, N18.32 - Chronic kidney disease, stage 3b, N25.81 - Secondary hyperparathyroidism of renal origin Parathyroid Hormone Intact 3 Months I15.1 - Hypertension secondary to other renal disorders, N18.32 - Chronic kidney disease, stage 3b, N25.81 - Secondary hyperparathyroidism of renal origin Coding Level of Care Code Est Pt Level 4 (05823) Diagnoses Stage 3b chronic kidney disease (CKD) N18.32 Hypertension secondary to other renal disorders I15.1 Hypertension type: secondary to other renal disorders Secondary hyperparathyroidism (of renal origin) N25.81
[2024-08-25 10:32] VITALS: BP 134/70; PULSE 75; O2SAT 99; BMI 25.4
== END 2024-08-25 10:50 | disposition home or self-care (01) ==
PROVIDERS: Visit Provider Internal Medicine Nephrology
DX: N18.32 Chronic kidney disease, stage 3b (principal); I15.1 Hypertension secondary to other renal disorders; N25.81 Secondary hyperparathyroidism of renal origin
CPT/HCPCS: 99214

== ENCOUNTER → 2024-08-25 10:28 | Outpatient (BNVA) | payer OTHER, SELFPAY | PROVIDERS: Visit Provider Internal Medicine Nephrology ==

== ENCOUNTER 2024-09-01 09:35 | Outpatient (AMB) | payer OTHER, SELFPAY ==
--- NOTE | 2024-09-01 09:40 | MHC.OFFVIS ---
Intake Visit Reasons: Greenlight/Nephrostomy/SPT change- follow up Intake Note: Patient is present for Post Op Greenlight, Nehprostomy, SPT Change follow up Urology Med: Finasteride Last Prescirbed: 08/07/24 Bactrim DS Antibiotic Allergy: None Blood Thinner: None Patient reports he is doing well after procedure Reports that he has been urinating out his penis not his Tube System Archive Analyst Required: No Accompanied by: Self / Same As Patient Allergies No Known Allergies Allergy (Verified 08/25/24 10:31) HPI Comments Details: Brandon is a pleasant male. He is seen for the following urologic conditions - lower urinary tract symptoms - bilateral hydronephrosis Hospital admission Found with urinary retention Acute renal insult with creatinine 5.[address] showed bilateral hydronephrosis with significant prostatomegaly and diffuse bladder wall thickening Salcedo catheter placed. Bilateral percutaneous nephrostomy tubes placed. Tubes draining well with slow resolution in creatinine Unable to internalize nephrostomy tube in operating room Suprapubic tube placed Here for review of bilateral nephrostomy tubes with suprapubic tube Right nephrostomy tube capped Review in one-week to ensure no pain and 2 cap left side and replace suprapubic tube PFSH Medical History Secondary hyperparathyroidism (of renal origin) Enlarged prostate with urinary obstruction Bladder outlet obstruction Hematuria Vitamin D deficiency Acute kidney injury superimposed on CKD Hypertension Renal failure Urinary tract infection Enlarged prostate HTN (hypertension) Surgical History No pertinent past surgical history Social History Household Members: Significant Other Housing: House Are you a primary early breastfeeding care specialist to a significant other at home: No Do you presently have visiting nurse or other home services: No Patient Tobacco Use Status: Never used Tobacco service: No Review of Systems Const Denies chills and Denies fever(s) Card Reports no additional complaints and Denies syncope Resp Denies cough GI Denies abdominal pain and Denies heartburn Reports as per HPI and Denies change in libido Neuro Denies syncope Psych Denies change in libido Endo Denies change in libido Physical Exam Const General: cooperative, healthy appearing, comfortable and no acute distress Orientation/consciousness: patient oriented x3 HEENT Face and sinus: Yes normal facial exam Mouth: moist mucous membranes Neck Neck: Yes normal visual inspection, Yes full ROM and Yes trachea midline Chest Chest palpation & inspection: normal inspection of the chest Resp Effort & Inspection: normal respiratory effort, able to speak in complete sentences and no respiratory distress GI Inspection: Yes normal to inspection Back/Spine/Pelvis Cervical Spine: normal cervical lordosis Thoracic/Lumbar Spine: thoracic and lumbar spine normal to inspection Skin General skin exam: no rashes or lesions noted Neuro General: patient oriented x3, gait normal, tone normal and moves all extremities Extrem General: Yes normal to inspection and Yes capillary refill normal Assessment & Plan Assessment & Plan (1) Bladder outlet obstruction: Code(s): N32.0 - Bladder-neck obstruction Category: Medical (2) Hydronephrosis: Code(s): N13.30 - Unspecified hydronephrosis Category: Medical Plan Refill medications Medications: New sulfamethoxazole-trimethoprim 400-80 mg (Bactrim) 1 tab PO BEDTIME 90 tabs 0RF 90 days N32.0 - Bladder-neck obstruction, N39.0 - Urinary tract infection, site not specified Discontinued sulfamethoxazole-trimethoprim 800-160 mg Discontinued Reason: Patient Completed Course 1 tab PO BID 14 days 28 tabs 0RF Patient Instructions: Imaging studies, laboratory and physical exam results were discussed and reviewed in detail. No major barriers to patient understanding were identified. An opportunity to ask questions regarding the treatment plan was provided. All questions were answered. The patient expressed understanding and agreement with the above treatment plan. The patient is aware they should contact our office by phone for worsening of their current condition or the appearance of new urologic symptoms. Compliance is encouraged with any medications and followup testing that is ordered. It is a privilege to participate in the urologic care of your patient. If you have any questions or concerns regarding treatment for the above conditions, or other urologic issues, please do not hesitate to contact me. The office telephone contact is [phone]. This note is constructed using voice recognition software. While every effort has been made to ensure accuracy bisque placer errors may have been included. Yours sincerely, Dr Alan Reynolds MD, ABHINAV [facility] - Urology Providers of Expert, Compassionate Care for the Genitourinary System Coding Level of Care Code Est Pt Level 3 (29463) Diagnoses Bladder outlet obstruction N32.0 Hydronephrosis N13.30
== END 2024-09-01 10:54 | disposition home or self-care (01) ==
PROVIDERS: Visit Provider Urology
DX: N32.0 Bladder-neck obstruction (principal); N13.30 Unspecified hydronephrosis
CPT/HCPCS: 99213

== ENCOUNTER 2024-11-14 10:22 | Outpatient (AMB) | payer OTHER, SELFPAY ==
--- NOTE | 2024-11-14 10:27 | A.OFFVIS_ITS ---
Intake Visit Reasons: 6week PVR/Med Review(Bethanechol) Intake Note: Patient is present for 6M MED REVIEW Urology Medication:FIN ASTERIDE,BETHANECHOL CHLORIDE Antibiotic Allergy:NONE Blood Thinner:NONE TODAY'S PVR:257ML'S Midwife Required: No Allergies No Known Allergies Allergy (Verified 11/24/24 11:56) HPI Comments Details: Brandon is a pleasant male. He is seen for the following urologic conditions - lower urinary tract symptoms - bilateral hydronephrosis Like to move ahead with GreenLight laser prostate now bladder has settled Urinary retention Hospital admission 06/10 Acute renal insult with creatinine 5.[address] showed bilateral hydronephrosis with significant prostatomegaly and diffuse bladder wall thickening Salcedo catheter placed. Bilateral percutaneous nephrostomy tubes placed. Tubes draining well with slow resolution in creatinine 08/10 Suprapubic tube placed - Unable to internalize nephrostomy tube in operating room Here for review of bilateral nephrostomy tubes with suprapubic tube Right nephrostomy tube capped Review in one-week to ensure no pain and 2 cap left side and replace suprapubic tube [facility] Medical History (Updated 11/24/24 @ 12:05 by Lang Conner MD) Vitamin D deficiency Secondary hyperparathyroidism (of renal origin) Enlarged prostate with urinary obstruction Bladder outlet obstruction Hematuria Acute kidney injury superimposed on CKD Hypertension Renal failure Urinary tract infection Enlarged prostate HTN (hypertension) Surgical History No pertinent past surgical history Social History Household Members: Significant Other Housing: House Are you a primary primary health care nurse to a significant other at home: No Do you presently have visiting nurse or other home services: No Patient Tobacco Use Status: Never used Tobacco service: No Review of Systems Const Denies chills and Denies fever(s) Card Reports no additional complaints and Denies syncope Resp Denies cough GI Denies abdominal pain and Denies heartburn Reports as per HPI and Denies change in libido Neuro Denies syncope Psych Denies change in libido Endo Denies change in libido Physical Exam Const General: cooperative, healthy appearing, comfortable and no acute distress Orientation/consciousness: patient oriented x3 HEENT Face and sinus: Yes normal facial exam Mouth: moist mucous membranes Neck Neck: Yes normal visual inspection, Yes full ROM and Yes trachea midline Chest Chest palpation & inspection: normal inspection of the chest Resp Effort & Inspection: normal respiratory effort, able to speak in complete sentences and no respiratory distress GI Inspection: Yes normal to inspection Back/Spine/Pelvis Cervical Spine: normal cervical lordosis Thoracic/Lumbar Spine: thoracic and lumbar spine normal to inspection Skin General skin exam: no rashes or lesions noted Neuro General: patient oriented x3, gait normal, tone normal and moves all extremities Extrem General: Yes normal to inspection and Yes capillary refill normal Office Procedures Post Void Residual Post Residual Void Post Void Residual (PVR): [id number] Void Residual by ultrasound Assessment & Plan Assessment & Plan (1) Bladder outlet obstruction: Code(s): N32.0 - Bladder-neck obstruction Category: Medical (2) Enlarged prostate with urinary obstruction: Code(s): N40.1 - Benign prostatic hyperplasia with lower urinary tract symptoms; N13.8 - Other obstructive and reflux uropathy Category: Medical Plan We discussed the nature of the decision and reasonable options for performing a prostate intervention. Interventions include TURP, GreenLight laser enucleation of the prostate, GreenLight laser ablation of the prostate, transurethral incision of the prostate, and I-Tend prostate procedure. Options such as medical therapy were discussed. The relative uncertainties and benefits related to each alternate procedure were adequately discussed. General surgical risks including, but not limited to, pain, bleeding, infection, myocardial infarction, pulmonary embolus, deep vein thrombosis and cerebrovascular accident which may result in further hospitalization were discussed. Full disclosure of the procedure as well as all major risks, benefits and complications were discussed including but not limited to damage to the urethra or bladder neck, recurrent BPH, retrograde ejaculation, bladder infection, urge, de jerrod frequency, incomplete emptying, dysuria, remote chance of erectile dysfunction, epididymitis, and meatal stenosis. The success rate of the procedure was discussed. Success of the procedure in the short-term does not necessarily guarantee that long-term success will be maintained. Suitable follow up will need to be maintained. The patient showed understanding of discussion. An opportunity was provided for questions to be answered and wishes to proceed with the following procedure. - greenlight laser prostate Patient Instructions: This note is constructed using voice recognition software. While every effort has been made to ensure accuracy soft sugar cutter errors may have been included. Imaging studies, laboratory and physical exam results were discussed and reviewed in detail. No major barriers to patient understanding were identified. An opportunity to ask questions regarding the treatment plan was provided. All questions were answered. The patient expressed understanding and agreement with the above treatment plan. The patient is aware they should contact our office by phone for worsening of their current condition or the appearance of new urologic symptoms. Compliance is encouraged with any medications and followup testing that is ordered. It is a privilege to participate in the urologic care of your patient. If you have any questions or concerns regarding treatment for the above conditions, or other urologic issues, please do not hesitate to contact me. The office telephone contact is [phone]. Sincerely, Dr Alan Reynolds MD, ABHINAV [facility] - Urology Compassionate Specialist Care for the Genitourinary System Coding Level of Care Code Est Pt Level 4 (50439) Diagnoses Bladder outlet obstruction N32.0 Enlarged prostate with urinary obstruction N40.1; N13.8 CPT Codes Post Residual Void - PVR CPT Code: 38520-Dkbw Void Residual by ultrasound ([id number])
--- OUTSIDE RECORDS SUMMARY | 2024-11-14 11:16 | XMS_ITS | Encounter Summary ---
Author Organization [employer] Address [address] [place] [address] Care Team Providers Care Academic Affairs Specialist Name Role Phone Name, Jeffrey LUJAN Primary Care Provider [phone] Reason for Visit * Reason Onset Date Comments nov recalls 10/26/2024 Encounter Details Date Type Department Care Team ([facility] st Contact Info) Description 10/26/2024 Telephone [facility] [address] [place], [place] [phone] Daquan Stoll [place] nov recalls Social History Tobacco Use Types Packs/Day Years Used Date Smoking Tobacco: Never Passive Smoke Exposure: Never Smokeless Tobacco: Never Alcohol Use Standard Drinks/Week Comments Not Currently 0 (1 standard drink = 0.6 oz pur e alcohol) Alcohol Answer Date Recorded Frequency of Alcohol Consumption Not on file 08/25/2024 Average Number of Drinks Not on file 024 Frequency of Binge Drinking Not on file 05/2024 Score 0 08/25/2024 Depression Answer Date Recorded Patient Health Questionnaire-9 Score 0 06/21/2024 Patient Health Questionnaire-9 Score 0 06/21/2024 Last PHQ-9: Questionnaire Data Not on file 0 06/21/2024 Housing Stability Answer Date Recorded What is your housing situation today? I have housing today, but I am worried about losing housing in the future 08/25/[address] you li ve. Do you have problems with any of the following? None of the above 08/25/2024 Food Insecurity Answer Date Recorded Within the past 12 months, y ou worried that your food would run out before you got money to buy more: Never True 06/21/2024 Within the past 12 months,th e food you bought just didn't last and you didn't have enough money to get more: Never True 01/2024 Transportation Answer Date Recorded In the past 12 months, has l ack of transportation kept you from medical appts, meetings, work or from getting things needed for daily living? No 06/21/2024 Utilities Answer Date Recorded In the past 12 months, has t he electric, gas, oil or water company threatened to shut off services in your home? No 08/25/2024 Depression Answer Date Recorded Patient Health Questionnaire-2 Score 0 06/21/2024 Internet Access Answer Date Recorded Internet Access Q1 Yes 08/25/2024 Internet Access Q2 Not on file 08/25/2024 Sex and Gender Information Value Date Recorded Sex Assigned at Male 06/20/2024 9:34 AM EDT Legal Sex Male 11:02 AM EDT Gender Identity Male 06/20/2024 9:34 AM EDT Sexual Orientation Straight 06/20/2024 9: 34 AM EDT documented as of this encounter Miscellaneous Notes * Telephone Encounter - Daquan Stoll [place] - 10/26/2024 11:29 AM EST T/C -NIGEL unable to reach pt,lvm for pt to call back so we could schedule _follow up , if pt calls back you could transfer call to [facility] , letter sent . documented in this encounter Plan of Treatment Not on file documented as of this encounter Visit Diagnoses Not on filedocumented in this encounter Additional Health Concerns Assessment Noted Time PHQ-9 Depression Total Score: 0 06/21/20 10:48 AM EDT documented as of this encounter Care Teams Academic Affairs Specialist Relationship Specialty Start Date End Date Name, MD Jeffrey [address] [place] [address] PCP - General Internal Medicine 06/21/24 documented as of this encounter
--- OUTSIDE RECORDS SUMMARY | 2024-11-14 11:16 | XMS_ITS | Clinical Summary ---
Author Organization [employer] Address [address] [place] [address] [address] [place] [address] Care Team Providers Care Bomb Technician Name Role Phone Name, Jeffrey LUJAN Primary Care Provider [phone] Allergies No known active allergies Medications amLODIPine (Norvasc) 10 MG tablet Take 10 mg by mouth Once per day. 06/12/2024 Active doxazosin (Cardura) 1 MG tablet Take 1 mg by mouth at bedtime. 06/11/2024 Active finasteride (Proscar) 5 MG tablet TAKE 1 TABLET BY MOUTH EVERY DAY FOR 90 DAYS 06/11/2024 Active Active Problems Problem Noted Date Diagnosed Date BPH with urinary obstruction 06/21/2024 JANINA (acute kidney injury) 06/21/2024 CKD (chronic kidney disease) stage 4, GFR 15-29 ml/min 06/21/2024 Hypertension 06/21/2024 Encounters Date Type Department Care Team Description 10/26/2024 Telephone [facility] [address] [place] [address] Daquan Stoll [place] feb recalls 08/25/2024 11:30 AM EST Office Visit [facility] [address] [place], [place] [phone] Name, MD Jeffrey Hypertension, unspecified type (Primary Dx); CKD (chronic kidney disease) stage 4, GFR 15-29 ml/min ([facility]); Encounter for immunization 08/25/2024 Travel from Last 3 Months Immunizations Name Administration Dates Next Due Influenza, High Dose Seasonal, Preservative Free 08/25/2024 Pneumococcal Conjugate PCV 20 08/25/2024 Social History Tobacco Use Types Packs/Day Years Used Date Smoking Tobacco: Never Passive Smoke Exposure: Never Smokeless Tobacco: Never Tobacco Cessation:Counseling Given: Not Answered Alcohol Use Standard Drinks/Week Comments Not Currently [...] Orientation Straight 06/20/2024 9: 34 AM EDT Last Filed Vital Signs Vital Sign Reading Time Taken Comments Blood Pressure 138/79 08/25/2024 11:59 AM EST Pulse 72 08/25/2024 11:35 AM EST Temperature 36.4 ??C (97.6 ??F) 08/25/2024 1 1:35 AM EST Respiratory Rate 22 08/25/2024 11:3 5 AM EST Oxygen Saturation 98% 08/25/2024 11: 35 AM EST Inhaled Oxygen Concentration - - Weight 71.6 kg (157 lb 12.8 oz) 024 11:35 AM EST Height 162.6 cm (5' 4 ) 08/25/2024 11:3 5 AM EST Body Mass Index 27.09 08/25/2024 11:35 AM EST Plan of Treatment Health Maintenance Due Date Last Done Comments CT Colonography 1952 Colonoscopy 1952 Colorectal Cancer Screening 1952 FIT DNA/Cologuard 1952 FIT 1952 FOBT 1952 Lipid Panel 1952 SDOH Screening 1950 Sigmoidoscopy 1950 Hepatitis C Screening 02/06/1970 DTaP/Tdap/Td Vaccines (1 - Tdap) 02/06/1971 Zoster Vaccines (1 of 2) 02/06/2002 COVID-19 Vaccine (2023-2 5 season) 2024 10/30/2021, 01/27/2021, 12/30/2020 Depression Screening 06/21/2025 06/21/2024, 06/21/2024 Alcohol/Substance Use Screening 08/25/2025 08/25/2024 Tobacco Screening 08/25/2025 08/25/2024 RSV Patients and Patients Aged 60 years or older (1 - 1-dose 75+ series) 02/06/2027 Influenza Vaccine Completed 08/25/2024 Pneumococcal Vaccine: 65+ Years Completed 08/25/2024 HIB Vaccines Aged Out No longer eligi ble based on patient's age to complete this topic HPV Vaccines Aged Out No longer eligi ble based on patient's age to complete this topic Hepatitis A Vaccines Aged Out No long er eligible based on patient's age to complete this topic Hepatitis B Vaccines Aged Out No long er eligible based on patient's age to complete this topic IPV Vaccines Aged Out No longer eligi ble based on patient's age to complete this topic Meningococcal Vaccine Aged Out No nena tere eligible based on patient's age to complete this topic RSV under 20 months Aged Out No longe r eligible based on patient's age to complete this topic Rotavirus Vaccines Aged Out No longer eligible based on patient's age to complete this topic Insurance [facility] PPO Care Teams Bomb Technician Relationship Specialty Start Date End Date Name, MD Jeffrey [address] [place] [address] PCP - General Internal Medicine 06/21/24
--- OUTSIDE RECORDS SUMMARY | 2024-11-14 11:16 | XMS_ITS | Clinical Summary ---
Author Organization [facility] Address [address] [place] [address] Care Team Providers Care Grinder Hand Name Role Phone Unavailable Primary Care Provider Unavailabl e Source Comments PLEASE NOTE, if this patient is a minor, it may be UNLAWFUL to discuss sensitive information that is contained in these records (such as FAMILY PLANNING, MENTAL HEALTH or SUBSTANCE ABUSE) with the minor patient's parent or other person without the patient's specific authorization.[facility] Immunizations Name Administration Dates Next Due Moderna COVID-19 Vaccine, re d cap blue label, 12+ Primary Series 01/27/2021,12/30/2020 Social History Tobacco Use Types Packs/Day Years Used Date Smoking Tobacco: Never Assessed Social Connections Answer Date Recorded Social Connections and Isolation 0 2024 Financial Resource Strain Answer Date R ecorded Financial Resource Strain 0 2023 Stress Answer Date Recorded Stress 0 2024 Physical Activity Answer Date Recorded Physical Activity 0 2024 Food Insecurity Answer Date Recorded Food 0 2024 Transportation Needs Answer Date Record ed Transportation 0 2024 Housing Stability Answer Date Recorded Housing 0 2024 Safety and Environment Answer Date Luis Eduardo rded Safety 0 2024 Utilities Answer Date Recorded Utilities 0 2024 Employment Answer Date Recorded Employment 0 2024 Sex and Gender Information Value Date Recorded Sex Assigned at Not on file Legal Sex Male 5:39 AM PST Gender Identity Not on file Sexual Orientation Not on file Plan of Treatment Health Maintenance Due Date Last Done Comments Hepatitis C Screening 1950 Lipid Screening 1952 Tobacco Screening 1952 Hypertension Screening (#1) 02/06/1970 Imm-DTaP/Tdap/Td (1 - Tdap) 02/06/1971 CT Colonography 02/06/1997 Colonoscopy 02/06/1997 Colorectal Cancer Screening 02/06/1997 FIT/gFOBT 02/06/1997 Fecal DNA 02/06/1997 Flexible Sigmoidoscopy 02/06/1997 Imm-Zoster, Recombinant (1 of 2) 02/06/2002 Abdominal Aortic Aneurysm Screening 02/06/2017 Falls Prevention 02/06/2017 Imm-Pneumococcal 65+ (1 of 1 - PCV) 02/06/2017 Pdd-CZABT-29 (3 - season) 2024 021, 12/30/2020 Imm-Influenza (#1) 2024 Alcohol and Drug Screen 10/18/2024 Depression Annual Screen 10/18/2024 Insurance [employer] ([employer])
== END 2024-11-14 10:42 | disposition home or self-care (01) ==
PROVIDERS: Visit Provider Urology
DX: N32.0 Bladder-neck obstruction (principal); N40.1 Benign prostatic hyperplasia with lower urinary tract symptoms; N13.8 Other obstructive and reflux uropathy
CPT/HCPCS: 99214

== ENCOUNTER → 2024-11-14 10:22 | Outpatient (BNVA) | payer OTHER, SELFPAY | PROVIDERS: Visit Provider Urology | DX: N40.1 Benign prostatic hyperplasia with lower urinary tract symptoms (principal); N13.8 Other obstructive and reflux uropathy | CPT/HCPCS: 51798 ==

== ENCOUNTER 2024-11-14 10:56 | Outpatient (REF) | payer OTHER, SELFPAY ==
[2024-11-14 11:10] LABS: MANUAL DIFF FLAG NO
[2024-11-14 11:49] LABS: Basophils Absolute Auto 0.1 X10*3/uL (0.0-0.2); Basophils Percent Auto 0.8 % (0-2); Eosinophils Absolute Auto 0.8 X10*3/uL (0.0-0.4); Eosinophils Percent Auto 7.6 % (0-4); Hematocrit 35.9 % (42.0-52.0); Imm Gran Abs Auto 0.04 X10*3/uL (0.00-0.03); Imm Gran Pct Auto 0.4 % (0.0-0.4); Lymphocytes Absolute Auto 2.8 X10*3/uL (1.2-4.9); Lymphocytes Percent Auto 26.1 % (20-40); Mean Corpuscular HGB Conc 30.6 g/dl (31.0-36.0); Mean Corpuscular Hemoglobin 27.4 pg (27.0-33.0); Mean Corpuscular Volume 89.3 fL (80.0-98.0); Mean Platelet Volume 9.8 fL (9.4-12.4); Monocytes Absolute Auto 0.7 X10*3/uL (0.1-1.2); Monocytes Percent Auto 6.2 % (2-11); Neutrophils Absolute Auto 6.3 x10*3/uL (2.0-8.3); Neutrophils Percent Auto 58.9 % (45-73); Platelet Count 440 X10*3/uL (160-400); Red Blood Count 4.02 X10*6/uL (4.60-5.80); Red Cell Distribution Width 15.3 % (11.0-16.0); White Blood Count 10.7 X10*3/uL (4.8-10.8)
--- OUTSIDE RECORDS SUMMARY | 2024-11-14 12:07 | XMS_ITS | Clinical Summary ---
Author Organization [facility] Address [address] [place] [address] Care Team Providers Care Turpentine Farmer Name Role Phone Unavailable Primary Care Provider [...] 65+ (1 of 1 - PCV) 02/06/2017 Nuv-ODQTL-09 (3 - season) 2024 021, 12/30/2020 Imm-Influenza (#1) 2024 Alcohol and Drug Screen 10/18/2024 Depression Annual Screen 10/18/2024 Insurance [employer] ([employer])
--- OUTSIDE RECORDS SUMMARY | 2024-11-14 12:07 | XMS_ITS | Clinical Summary ---
Author Organization [employer] Address [address] [place] [address] [address] [place] [address] Care Team Providers Care Pickling Tank Operator Name Role Phone Name, Jeffrey LUJAN Primary Care Provider [phone] Allergies No known active allergies Medications amLODIPine [...] Encounters Date Type Department Care Team Description 11/14/2024 Orders Only GENERIC EXTERNAL DATA DEPARTMENT Provider, Generic External Data 10/26/2024 Telephone [facility] [address] [place] [phone] Daquan Stoll [place] nov recalls 08/25/2024 11:30 AM EST Office Visit [facility] [address] [place] [address] Jeffrey Valderrama MD Hypertension, unspecified type (Primary Dx); CKD (chronic kidney disease) stage 4, GFR 15-29 ml/min ([facility]); Encounter for immunization 08/25/2024 Travel from Last [...] Average Number of Drinks Not on file Frequency of Binge Drinking Not on file [...] on patient's age to complete this topic Procedures Procedure Name Priority Date/Time Associated Diagnosis Comments CBC WITH AUTO DIFFERENTIAL Routine 11/14/2024 11:08 AM EST from Last 3 Months Results * (ABNORMAL) CBC auto differential (11/14/2024 11:08 AM EST) White Blood Count 10.7 4.8 - 10.8 X10*3/uL [facility] Red Blood Count 4.02(L) 4.60 - 5.80 X10*6/uL [facility] Hemoglobin 11.0(L) 14.0 - 18.0 g/dl [facility] Hematocrit 35.9(L) 42.0 - 52.0 % [facility] Mean Corpuscular Volume 89.3 80.0 - 98.0 fL [facility] Mean Corpuscular Hemoglobin 27.4 27.0 - 33.0 pg [facility] Mean Corpuscular HGB Conc 30.6(L) 31.0 - 36.0 g/dl [facility] Red Cell Distribution Width 15.3 11.0 - 16.0 % [facility] Platelet Count 440(H) 160 - 400 X10*3/uL [facility] Mean Platelet Volume 9.8 9.4 - 12.4 fL [facility] Neutrophils Percent Auto 58.9 45 - 73 % [facility] Imm Gran Pct Auto 0.4 0.0 - 0.4 % [facility] Lymphocytes Percent Auto 26.1 20 - 40 % [facility] Monocytes Percent Auto 6.2 2 - 11 % [facility] Eosinophils Percent Auto 7.6(H) 0 - 4 % [facility] Basophils Percent Auto 0.8 0 - 2 % [facility] NRBC Pct Auto 0.0 0.0 - 0.2 /100WBC [facility] Neutrophils Absolute Auto 6.3 2.0 - 8.3 x10*3/uL [facility] Imm Gran Abs Auto 0.04(H) 0.00 - 0.03 X10*3/uL [facility] Lymphocytes Absolute Auto 2.8 1.2 - 4.9 X10*3/uL [facility] Monocytes Absolute Auto 0.7 0.1 - 1.2 X10*3/uL [facility] Eosinophils Absolute Auto 0.8(H) 0.0 - 0.4 X10*3/uL [facility] Basophils Absolute Auto 0.1 0.0 - 0.2 X10*3/uL [facility] NRBC Abs Auto 0.000 0.0 - 0.012 X10*3/uL [facility] 11/14/2024 11:0 8 AM EST 11/14/2024 11:08 AM EST us Generic External Data Provider LAB BLOOD ORDERAB LES Final Result [facility] [address] [place] [address] [phone] from Last 3 Months Insurance [facility] PPO Care Teams Pickling Tank Operator Relationship Specialty Start Date End Date Name, MD Jeffrey [address] [place] [address] PCP - General Internal Medicine 06/21/24
--- OUTSIDE RECORDS SUMMARY | 2024-11-14 12:07 | XMS_ITS | Encounter Summary ---
Author Organization [employer] Address [address] [place] [address] Care Team Providers Care Cellars Supervisor Name Role Phone Name, Jeffrey LUJAN Primary Care Provider [phone] Encounter Details Date Type Department Care Team ([facility] Contact Info) Description 11/14/2024 Orders Only GENERIC EXTERNAL DATA DEPARTMENT Provider, Generic External Data Social History Tobacco Use Types Packs/Day Years [...] AM EDT documented as of this encounter Plan of Treatment Not on file documented as of this encounter Procedures Procedure Name Priority Date/Time Associated Diagnosis Comments CBC WITH AUTO DIFFERENTIAL Routine 11/14/2024 11:08 AM EST documented in this encounter Results * (ABNORMAL) CBC auto differential (11/14/2024 11:08 AM EST) White Blood Count 10.7 4.8 - 10.8 X10*3/uL [facility] Red Blood Count 4.02(L) 4.60 - 5.80 X10*6/uL [facility] Hemoglobin 11.0(L) 14.0 - 18.0 g/dl [facility] Hematocrit 35.9(L) 42.0 - 52.0 % [facility] Mean Corpuscular Volume 89.3 80.0 - 98.[address] [facility] Mean Corpuscular Hemoglobin 27.4 27.0 - 33.[address] [facility] Mean Corpuscular HGB Conc 30.6(L) 31.0 - 36.0 g/dl [facility] Red Cell Distribution Width 15.3 11.0 - 16.0 % [facility] Platelet Count 440(H) 160 - 400 X10*3/uL [facility] Mean Platelet Volume 9.8 9.4 - 12.[address] [facility] Neutrophils Percent Auto 58.9 45 - 73 % [facility] Imm Gran Pct Auto 0.4 0.0 - 0.4 % [facility] Lymphocytes Percent Auto 26.1 20 - 40 % [facility] Monocytes Percent Auto 6.2 2 - 11 % [facility] Eosinophils Percent Auto 7.6(H) 0 - 4 % [facility] Basophils Percent Auto 0.8 0 - 2 % [facility] NRBC Pct Auto 0.0 0.0 - 0.2 /100WBC [facility] Neutrophils Absolute Auto 6.3 2.0 - 8.3 x10*3/uL [facility] Imm Gran Abs Auto 0.04(H) 0.00 - 0.03 X10*3/uL [facility] Lymphocytes Absolute Auto 2.8 1.2 - 4.9 X10*3/uL [facility] Monocytes Absolute Auto 0.7 0.1 - 1.2 X10*3/uL [facility] Eosinophils Absolute Auto 0.8(H) 0.0 - 0.4 X10*3/uL [facility] Basophils Absolute Auto 0.1 0.0 - 0.2 X10*3/uL [facility] NRBC Abs Auto 0.000 0.0 - 0.012 X10*3/uL [facility] 11/14/2024 11:0 8 AM EST 11/14/2024 11:08 AM EST us Generic External Data Provider LAB BLOOD ORDERAB LES Final Result [facility] [address] [place] [address] [phone] documented in this encounter Visit Diagnoses Not on filedocumented in this encounter Additional Health Concerns Assessment Noted Time PHQ-9 Depression Total Score: 0 06/21/20 24 10:48 AM EDT documented as of this encounter Care Teams Cellars Supervisor Relationship Specialty Start Date End Date Name, MD Jeffrey [address] [place] [id number] PCP - General Internal Medicine 06/21/24 documented as of this encounter
--- OUTSIDE RECORDS SUMMARY | 2024-11-14 12:07 | XMS_ITS | Encounter Summary ---
Author Organization [employer] Address [address] [place] [address] Care Team Providers Care Employee Relations Manager Name Role Phone Name, Jeffrey LUJAN Primary Care Provider [phone] Reason for Visit * Reason Onset Date Comments nov recalls 10/26/2024 Encounter Details Date Type Department Care Team ([facility] st Contact Info) Description 10/26/2024 Telephone [facility] MEDICINE [address] [place], [place] [phone] Daquan Stoll [place] nov recalls Social History [...] calls back you could transfer call to [facility] , letter sent . documented in this encounter Plan of Treatment Not on file documented as of this encounter Visit Diagnoses Not on filedocumented in this encounter Additional Health Concerns Assessment Noted Time PHQ-9 Depression Total Score: 0 06/21/20 10:48 AM EDT documented as of this encounter Care Teams Employee Relations Manager Relationship Specialty Start Date End Date Name, MD Jeffrey [address] [place] [address] PCP - General Internal Medicine 06/21/24 documented as of this encounter
--- OUTSIDE RECORDS SUMMARY | 2024-11-14 12:07 | XMS_ITS | Encounter Summary ---
Author Organization [employer] Address [address] [facility] [address] 7t [place] [address] Care Team Providers Care Regulator Pin Inserter Name Role Phone Name, Jeffrey LUJAN Primary Care Provider [phone] Encounter Details Date Type Department Care Team ([facility] Contact Info) Description 08/07/2024 Orders Only [facility] External Provider, [facility] Social History Tobacco Use Types Packs/Day Years Used Date Smoking Tobacco: Never Smokeless Tobacco: Never Alcohol Use Standard [...] Procedure Name Priority Date/Time Associated Diagnosis Comments FL GUIDANCE IN OR Routine 08/07/2024 8:0 0 AM EDT documented in this encounter Results * FL Guidance in OR (08/07/2024 8:00 AM EDT) Anatomical Region Laterality Modality X-Ray Angiograph y 08/07/2024 8:00 AM EDT Narrative 11/14/2024 11:45 AM EST ? [facility] ?[address] ?[place] [address] ? Fluoroscopy Report ? Signed ? Patient: Wardequan,Brandon ?MR#: [id number] ?? 943 ? : 1950 ?Acct:[id number] ? Age/Sex: 74 / M ?ADM Date: 08/07/24 ? Loc: HO.SSS ? Attending Dr: Alan Reynolds MD ? Ordering Physician: Alan Reynolds MD ?? Date of Service: 08/07/24 ?? Procedure(s): FL guidance in OR ?? Accession Number(s): [id number] ? cc: Alan Reynolds MD; Name,Jeffrey LUJAN ? EXAMINATION: ?? FLUORO GUIDANCE IN OR ? CLINICAL INFORMATION: ?? Stone. Bilateral nephrostomy tubes. ? COMPARISON: ?? None available. ? TECHNIQUE: ?? Fluoroscopy supervised by: Dr. Alan Reynolds. ?? Fluoroscopy time: 386.0 seconds. ?? Cumulative Dose: 145.33 mGy. ?? DAP: No DAP available on this machine. ?? Images: 8. ? FINDINGS: ?? Fluoroscopy provided in the OR. ? FL/FL guidance in OR ?? IMPRESSION: ?? Fluoroscopy during procedure. Please see procedure report for ?? additional information. ? Electronically signed by: ??Fer Stevens MD ??11/14/2024 11:42 AM EST RP ? Dictated By: ?Fer Stevens MD ? Signed By: ?<Electronically signed by Fer Stevens MD in OV> ?11/14/24 1142 ? DD/ 0800 ? TD/TT: 08/07/24 0915 ? Counselor Aide: SHARON ? Procedure Note Donotfatemehter, Image - 11/14/2024 [place] [address] Fluoroscopy Report Signed Patient: Hilton Morocho#: [id number] 943 : 1950cct:[id number] Age/Sex: 74 / MADM Date: 08/07/24 Loc: HO.SSS Attending Dr: Alan Reynolds MD Ordering Physician: Alan Reynolds MD Date of Service: 08/07/24 Procedure(s): FL guidance in OR Accession Number(s): [id number] cc: Alan Reynolds MD; Name,Jeffrey LUJAN EXAMINATION: FLUORO GUIDANCE IN OR CLINICAL INFORMATION: Stone. Bilateral nephrostomy tubes. COMPARISON: None available. TECHNIQUE: Fluoroscopy supervised by: Dr. Alan Reynolds. Fluoroscopy time: 386.0 seconds. Cumulative Dose: 145.33 mGy. DAP: No DAP available on this machine. Images: 8. FINDINGS: Fluoroscopy provided in the OR. FL/FL guidance in OR IMPRESSION: Fluoroscopy during procedure. Please see procedure report for additional information. Electronically signed by: Fer Stevens MD 11/14/2024 11:42 AM EST Dictated By: Fer Stevens MD Signed By: <Electronically signed by Fer Stevens MD in OV> 11/14/24 1142 DD/ 08 TD/TT: 08/07/24 0915 Counselor Aide: SHARON [facility] External Provider IMG IR PROCEDURES Final Result documented in this encounter Visit Diagnoses Not on filedocumented in this encounter Additional Health Concerns Assessment Noted Time PHQ-9 Depression Total Score: 0 06/21/20 10:48 AM EDT documented as of this encounter Care Teams Regulator Pin Inserter Relationship Specialty Start Date End Date Name, MD Jeffrey [address] [place] [address] PCP - General Internal Medicine 06/21/24 documented as of this encounter
[2024-11-14 12:30] LABS: Anion Gap 9 (12-20); Blood Urea Nitrogen 31 mg/dL (9-16); Calcium 8.9 mg/dL (8.4-10.2); Carbon Dioxide 25 mmol/L (22-29); Chloride 110 mmol/L (96-108); Estimated Glomerular Filt Rate 24; Phosphorus 2.9 mg/dL (2.7-4.5); Potassium 4.8 mmol/L (3.3-5.1); Sodium 139 mmol/L (135-145)
[2024-11-14 12:40] LABS: Vitamin D 25-OH Total 18.1 ng/mL (>30)
== END 2024-11-14 10:57 | disposition home or self-care (01) ==
LOC: HO.LAB 10:56
PROVIDERS: PCP Internal Medicine Geriatric Medicine; Visit Provider Internal Medicine Nephrology
DX: N25.81 Secondary hyperparathyroidism of renal origin (principal); I15.1 Hypertension secondary to other renal disorders; N18.32 Chronic kidney disease, stage 3b
CPT/HCPCS: 36415; 80051; 82306; 82310; 82565; 83970; 84100; 84520; 85025

== ENCOUNTER 2024-11-24 11:34 | Outpatient (AMB) | payer OTHER, SELFPAY ==
--- NOTE | 2024-11-24 11:55 | HO.NEPHOV ---
Vital Signs 11/24/24 11:59 Height 5 ft 6 in Weight 166 lb 6 oz BMI 26.9 BP 170/90 H Blood Pressure Location Lt brachial Position Sitting Pulse 71 Pulse Source Pulse Oximeter Pulse Oximetry (%) 95 Oxygen Delivery Method Room Air Intake Visit Reasons: 3mon follow up-Conf Electrical Journeyman Required: No Accompanied by: Self / Same As Patient Allergies No Known Allergies Allergy (Verified 11/24/24 11:56) HPI Comments Details: 74-year-old man with worsening urinary retention was seen in ER recently and was found to have creatinine of 5.68. Abdominopelvic CT showed severe bilateral hydronephrosis with enlarged prostate gland and severe prostatomegaly. Diffuse bladder wall thickening and perivascular stranding likely secondary to bladder outlet obstruction. He was also noted to have elevated blood pressure and not on any home medications. Salcedo catheter initially was placed and draining. seen by Urology and recommended the addition of finesteride, cardura. Repeat renal ultrasound showing persistent b/l hydronephrosis 48 hours after Salcedo placement and bilateral stents were recommended. 06/05/24 attempted clot evacuation and retrograde was unsuccessful and thus he underwent Bilateral percutaneous nephrostomy tubes placed by IR 06/06. Now she has a supra pubic catheter. He denied hematuria, fever, flank pain, nausea, vomiting, chills or rigor. He feels improved [facility] Medical History (Updated 11/24/24 @ 12:05 by Lang Conner MD) Vitamin D deficiency Secondary hyperparathyroidism (of renal origin) Enlarged prostate with urinary obstruction Bladder outlet obstruction Hematuria Acute kidney injury superimposed on CKD Hypertension Renal failure Urinary tract infection Enlarged prostate HTN (hypertension) Surgical History No pertinent past surgical history Social History Household Members: Significant Other Housing: House Are you a primary patient care provider to a significant other at home: No Do you presently have visiting nurse or other home services: No Patient Tobacco Use Status: Never used Tobacco service: No Review of Systems Const All systems reviewed & are unremarkable except as noted in HPI and below Physical Exam Vital Signs: Last Vital Signs Pulse 71 11/24/24 11:59 BP 170/90 H 11/24/24 11:59 Pulse Ox 95 11/24/24 11:59 Oxygen Delivery Method Room Air 11/24/24 11:59 BMI result Body Mass Index 26.9 Const General: comfortable and no acute distress Orientation/consciousness: patient oriented x3 HEENT Head: Yes normocephalic Mouth: Normal oral and palatal mucosa present Eyes EOM: EOMs intact bilaterally Neck Neck: Yes supple Resp Auscultation: clear to auscultation bilaterally Cardio Jugular venous distension: no JVD Rate: regular rate GI Palpation (GI): Soft to palpation Auscultation: normal bowel sounds General: Yes no CVA tenderness Back/Spine/Pelvis Back: no CVA tenderness Skin General skin exam: no rashes or lesions noted Neuro General: patient oriented x3 and moves all extremities Extrem General: Yes no pedal edema Results Reviewed Nephrology Results: Hgb 11.0 g/dl (14.0-18.0) L 11/14/24 WBC 10.7 X10*3/uL (4.8-10.8) 11/14/24 Plt Count 440 X10*3/uL (160-400) H 11/14/24 Sodium 139 mmol/L (135-145) 11/14/24 Potassium 4.8 mmol/L (3.3-5.1) 11/14/24 Chloride 110 mmol/L (96-108) H 11/14/24 Carbon Dioxide 25 mmol/L (22-29) 11/14/24 BUN 31 mg/dL (9-16) H 11/14/24 Creatinine 2.65 mg/dL (0.5-1.4) H 11/14/24 Calcium 8.9 mg/dL (8.4-10.2) 11/14/24 Phosphorus 2.9 mg/dL (2.7-4.5) 11/14/24 PTH Intact 136.0 pg/mL (8.7-77.1) H 11/14/24 Assessment & Plan Assessment & Plan (1) Stage 3b chronic kidney disease (CKD): Code(s): N18.32 - Chronic kidney disease, stage 3b Category: Medical (2) HTN (hypertension): Code(s): I10 - Essential (primary) hypertension Category: Medical Qualifiers: Hypertension type: secondary to other renal disorders Qualified Code(s): I15.1 - Hypertension secondary to other renal disorders (3) Secondary hyperparathyroidism (of renal origin): Code(s): N25.81 - Secondary hyperparathyroidism of renal origin Category: Medical (4) Vitamin D deficiency: Code(s): E55.9 - Vitamin D deficiency, unspecified Category: Medical Plan 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 F/U given Orders: Orders Creatinine 3 Months E55.9 - Vitamin D deficiency, unspecified, I15.1 - Hypertension secondary to other renal disorders, N18.32 - Chronic kidney disease, stage 3b, N25.81 - Secondary hyperparathyroidism of renal origin Blood Urea Nitrogen 3 Months E55.9 - Vitamin D deficiency, unspecified, I15.1 - Hypertension secondary to other renal disorders, N18.32 - Chronic kidney disease, stage 3b, N25.81 - Secondary hyperparathyroidism of renal origin Electrolytes 3 Months E55.9 - Vitamin D deficiency, unspecified, I15.1 - Hypertension secondary to other renal disorders, N18.32 - Chronic kidney disease, stage 3b, N25.81 - Secondary hyperparathyroidism of renal origin Medications: New cholecalciferol (vitamin D3) 50 mcg PO DAILY 90 days 90 caps 3RF carvedilol must administer with a meal/food 6.25 mg PO BID 60 tabs 7RF Coding Level of Care Code Est Pt Level 4 (95669) Diagnoses Stage 3b chronic kidney disease (CKD) N18.32 Hypertension secondary to other renal disorders I15.1 Hypertension type: secondary to other renal disorders Secondary hyperparathyroidism (of renal origin) N25.81 Vitamin D deficiency E55.9
[2024-11-24 11:59] VITALS: BP 170/90; PULSE 71; O2SAT 95; BMI 26.9
--- OUTSIDE RECORDS SUMMARY | 2024-11-24 12:36 | XMS_ITS | Encounter Summary ---
Author Organization [employer] Address [address] [facility] [address] [facility] [address] [place] [address] Care Team Providers Care Digital Camera Technician Name Role Phone Name, Jeffrey LUJAN Primary Care Provider [phone] Encounter Details Date Type Department Care Team ([facility] Contact Info) Description 08/07/2024 Orders Only [facility] External Provider, [facility] Social History Tobacco Use Types Packs/Day [...] EDT Narrative 11/14/2024 11:45 AM EST ? [facility] ?[address] ?[place] [address] ? Fluoroscopy Report ? Signed ? Patient: Wardequan,Brandon ?MR#: [id number] ?? 943 ? : 1950 ?Acct:[id number] ? Age/Sex: 74 / M ?ADM Date: 08/07/24 ? Loc: HO.SSS ? Attending Dr: Alan Reynolds MD ? Ordering Physician: Alan Reynolds MD ?? Date of Service: 08/07/24 ?? Procedure(s): FL guidance in OR ?? Accession Number(s): [id number] ? cc: Alan Reynolds MD; Name,Jeffrey LUJAN [...] DD/ 0800 ? TD/TT: 08/07/24 0915 ? Fabric Stretcher: SHARON ? Procedure Note Donotfatemehter, Image - 11/14/2024 [place] [address] Fluoroscopy Report Signed Patient: Hilton Morocho#: [id number] 943 : 1950cct:[id number] Age/Sex: 74 / MADM Date: 08/07/24 Loc: HO.SSS Attending Dr: Alan Reynolds MD Ordering Physician: Alan Reynolds MD Date of Service: 08/07/24 Procedure(s): FL guidance in OR Accession Number(s): [id number] cc: Alan Reynolds MD; Name,Jeffrey LUJAN EXAMINATION: [...] 11/14/24 1142 DD/ 08 TD/TT: 08/07/24 0915 Fabric Stretcher: SHARON [facility] External Provider IMG IR PROCEDURES Final Result documented in this encounter Visit Diagnoses Not on filedocumented in this encounter Additional Health Concerns Assessment Noted Time PHQ-9 Depression Total Score: 0 06/21/20 10:48 AM EDT documented as of this encounter Care Teams Digital Camera Technician Relationship Specialty Start Date End Date Name, MD Jeffrey [address] [place] [address] PCP - General Internal Medicine 06/21/24 documented as of this encounter
--- OUTSIDE RECORDS SUMMARY | 2024-11-24 12:36 | XMS_ITS | Clinical Summary ---
Author Organization [facility] Address [address] [place] [address] Care Team Providers Care Machine Sewer Name Role Phone Unavailable Primary Care Provider [...] 65+ (1 of 1 - PCV) 02/06/2017 [id number] (3 - season) 2024 021, 12/30/2020 Imm-Influenza (#1) 2024 Alcohol and Drug Screen 10/18/2024 Depression Annual Screen 10/18/2024 Insurance [employer] ([employer])
--- OUTSIDE RECORDS SUMMARY | 2024-11-24 12:36 | XMS_ITS | Encounter Summary ---
Author Organization [employer] Address [address] [facility] 7t [place] [address] Care Team Providers Care Fabrication Inspector Name Role Phone Name, Jeffrey LUJAN Primary Care Provider [phone] Encounter Details Date Type Department Care Team ([facility] Contact Info) Description 11/14/2024 Orders Only GENERIC [...] Procedure Name Priority Date/Time Associated Diagnosis Comments VITAMIN D,25-OH,TOTAL,IA Routine 11/14/2024 11:08 AM EST CREATININE, SERUM Routine 11/14/2024 11: 08 AM EST CBC WITH AUTO DIFFERENTIAL Routine 11/14/2024 11:08 AM EST UREA NITROGEN (BUN) Routine 11/14/2024 1 1:08 AM EST PHOSPHATE ( PHOSPHORUS) Routine 11/14/2024 11:08 AM EST PTH, INTACT WITHOUT CALCIUM Routine 11/14/2024 11:08 AM EST CALCIUM Routine 11/14/2024 11:08 AM EST ELECTROLYTE PANEL Routine 11/14/2024 11: 08 AM EST documented in this encounter Results * (ABNORMAL) Vitamin D, 25-Hydroxy, Total, Immunoassay (11/14/2024 11:08 AM EST) Vitamin D 25-OH Total 18.1(L) >30 ng/mL [facility] Comment:Health Based Referen ce Values*< 20 ng/mL [id number] ng/mL Insufficient> 30 ng/mL Sufficient*Stephanie BAKER. N Engl J Med. 2007;357:266-280Care must be taken in interpreting Vitamin D results fromdifferent laboratories and methodologies. Published datademonstrated that results from patients undergoinghemodialysis may show a negative bias when tested withvarious automated 25-OH vitamin D assays when compared toLC-MS/MS.When testing samples from patients whose predominant form ofVitamin D is Vitamin D2, such as patients receiving VitaminD2 supplementation, results that are subtherapeutic shouldbe confirmed with another method such as LC-MS/MS. 11/14/2024 11:0 8 AM EST 11/14/2024 11:08 AM EST Generic External Data Provider LAB BLOOD ORDERAB LES Final Result Performing Organization Address [facility] de Phone Number [facility] [address] [place] [phone] * Phosphate (As Phosphorus) (11/14/2024 11:08 AM EST) Phosphorus 2.9 2.7 - 4.5 mg/dL [facility] 11/14/2024 11:0 8 AM EST 11/14/2024 11:08 AM EST Generic External Data Provider LAB BLOOD ORDERAB LES Final Result Performing Organization Address [facility] Co de Phone Number [facility] [address] [place] [phone] * Calcium (11/14/2024 11:08 AM EST) Calcium 8.9 8.4 - 10.2 mg/dL [facility] 11/14/2024 11:0 8 AM EST 11/14/2024 11:08 AM EST Generic External Data Provider LAB BLOOD ORDERAB LES Final Result Performing Organization Address [facility]/ZIP Co de Phone Number [facility] [address] [place] [phone] * (ABNORMAL) Creatinine, Serum (11/14/2024 11:08 AM EST) Creatinine, Serum 2.65(H) 0.5 - 1.4 mg/dL [facility] Estimated Glomerular Filt Rate 24 [facility] Comment:Chronic Kidney Disea se: Estimated GFR < 60 mL/min/1.51d3Gzzugl Kidney Disease: Estimated GFR < 15 mL/min/1.73m2 11/14/2024 11:0 8 AM EST 11/14/2024 11:08 AM EST us Generic External Data Provider LAB BLOOD ORDERAB LES Final Result Performing Organization Address [facility] Phone Number [facility] [address] [place] [phone] * (ABNORMAL) BUN (Blood Urea Nitrogen) (11/14/2024 11:08 AM EST) Urea Nitrogen (BUN) 31(H) 9 - 16 mg/dL [facility] 11/14/2024 11:0 8 AM EST 11/14/2024 11:08 AM EST us Generic External Data Provider LAB BLOOD ORDERAB LES Final Result Performing Organization Address [facility] de Phone Number [facility] [address] [place] [phone] * (ABNORMAL) Electrolyte Panel (11/14/2024 11:08 AM EST) Sodium 139 135 - 145 mmol/L [facility] Potassium 4.8 3.3 - 5.1 mmol/L [facility] Chloride 110(H) 96 - 108 mmol/L [facility] Carbon Dioxide 25 22 - 29 mmol/L [facility] Anion Gap 9(L) 12 - 20 [facility] 11/14/2024 11:0 8 AM EST 11/14/2024 11:08 AM EST Generic External Data Provider LAB BLOOD ORDERAB LES Final Result Performing Organization Address [facility]/ZIP Co de Phone Number [facility] [address] [place] [phone] * (ABNORMAL) PTH, Intact Without Calcium (11/14/2024 11:08 AM EST) Pathologist [facility] Parathyroid Hormone, Intact 136.0(H) 8.7 - 77.1 pg/mL [facility] 11/14/2024 11:0 8 AM EST 11/14/2024 11:08 AM EST Generic External Data Provider LAB BLOOD ORDERAB LES Final Result Performing Organization Address [facility] Co de Phone Number [facility] [address] [place] [phone] * (ABNORMAL) CBC auto differential (11/14/2024 11:08 AM EST) [facility] White Blood Count 10.7 4.8 - 10.8 X10*3/uL [facility] Red Blood Count 4.02(L) 4.60 - 5.80 X10*6/uL [facility] Hemoglobin 11.0(L) 14.0 - 18.0 g/dl [facility] Hematocrit 35.9(L) 42.0 - 52.0 % [facility] Mean Corpuscular Volume 89.3 80.0 - 98.0 fL [facility] Mean Corpuscular Hemoglobin 27.4 27.0 - 33.0 pg [facility] Mean Corpuscular HGB Conc 30.6(L) 31.0 - 36.0 g/dl [facility] Red Cell Distribution Width 15.3 11.0 - 16.0 % [facility] Platelet Count 440(H) 160 - 400 X10*3/uL [facility] Mean Platelet Volume 9.8 9.4 - 12.4 fL [facility] Neutrophils Percent Auto 58.9 45 - 73 % [facility] Imm Gran Pct Auto 0.4 0.0 - 0.4 % [facility] Lymphocytes Percent Auto 26.1 20 - 40 % [facility] Monocytes Percent Auto 6.2 2 - 11 % [facility] Eosinophils Percent Auto 7.6(H) 0 - 4 % [facility] Basophils Percent Auto 0.8 0 - 2 % [facility] NRBC Pct Auto 0.0 0.0 - 0.2 /100WBC [facility] Neutrophils Absolute Auto 6.3 2.0 - 8.3 x10*3/uL [facility] Imm Gran Abs Auto 0.04(H) 0.00 - 0.03 X10*3/uL [facility] Lymphocytes Absolute Auto 2.8 1.2 - 4.9 X10*3/uL [facility] Monocytes Absolute Auto 0.7 0.1 - 1.2 X10*3/uL [facility] Eosinophils Absolute Auto 0.8(H) 0.0 - 0.4 X10*3/uL [facility] Basophils Absolute Auto 0.1 0.0 - 0.2 X10*3/uL [facility] NRBC Abs Auto 0.000 0.0 - 0.012 X10*3/uL [facility] 11/14/2024 11:0 8 AM EST 11/14/2024 11:08 AM EST us Generic External Data Provider LAB BLOOD ORDERAB LES Final Result [facility] [address] [place] [phone] documented in this encounter Visit Diagnoses Not on filedocumented in this encounter Additional Health Concerns Assessment Noted Time PHQ-9 Depression Total Score: 0 06/21/20 24 10:48 AM EDT documented as of this encounter Care Teams Fabrication Inspector Relationship Specialty Start Date End Date Name, MD Jeffrey [address] [place] [address] PCP - General Internal Medicine 06/21/24 documented as of this encounter
--- OUTSIDE RECORDS SUMMARY | 2024-11-24 12:37 | XMS_ITS | Encounter Summary ---
Author Organization [employer] Address [address] [place] [address] Care Team Providers Care Bin Tripper Operator Name Role Phone Name, Jeffrey LUJAN Primary Care Provider Reason for Visit * Reason Onset Date Comments nov recalls 10/26/2024 Encounter Details Date Type Department Care Team ([facility] st Contact Info) Description 10/26/[address] [facility] MEDICINE [address] [place], [place] [phone] Daquan Stoll [place] nov recalls Social History [...] calls back you could transfer call to [facility] , letter sent . documented in this encounter Plan of Treatment Not on file documented as of this encounter Visit Diagnoses Not on filedocumented in this encounter Additional Health Concerns Assessment Noted Time PHQ-9 Depression Total Score: 0 06/21/20 10:48 AM EDT documented as of this encounter Care Teams Bin Tripper Operator Relationship Specialty Start Date End Date Name, MD Jeffrey [address] [place] [address] PCP - General Internal Medicine 06/21/24 documented as of this encounter
--- OUTSIDE RECORDS SUMMARY | 2024-11-24 12:37 | XMS_ITS | Clinical Summary ---
Author Organization [employer] Address [address] [place] [address] [address] [place] [address] Care Team Providers Care Trimmer Helper Name Role Phone Name, Jeffrey LUJAN Primary Care Provider [phone] Allergies No known active allergies Medications amLODIPine [...] DEPARTMENT Provider, Generic External Data 10/26/2024 Telephone [facility] [address] [place] [phone] Daquan Stoll MA nov recalls 08/25/2024 11:30 AM EST Office Visit [facility] [address] [place] [address] Jeffrey Valderrama MD Hypertension, unspecified type (Primary Dx); CKD (chronic kidney disease) stage 4, GFR 15-29 ml/min ([facility]); Encounter for immunization 08/25/2024 Travel from [...] 02/06/2027 Influenza Vaccine Completed 08/25/2024 Pneumococcal Vaccine: 50+ Years Completed 08/25/2024 HIB Vaccines Aged Out [...] VITAMIN D,25-OH,TOTAL,IA Routine 11/14/2024 11:08 AM EST PHOSPHATE ( PHOSPHORUS) Routine 11/14/2024 11:08 AM EST CALCIUM Routine 11/14/2024 11:08 AM EST CREATININE, SERUM Routine 11/14/2024 11: 08 AM EST UREA NITROGEN (BUN) Routine 11/14/2024 1 1:08 AM EST ELECTROLYTE PANEL Routine 11/14/2024 11: 08 AM EST PTH, INTACT WITHOUT CALCIUM Routine 11/14/2024 11:08 AM EST CBC WITH AUTO DIFFERENTIAL Routine 11/14/2024 11:08 AM EST from Last 3 Months Results * (ABNORMAL) Vitamin D, 25-Hydroxy, Total, Immunoassay (11/14/2024 11:08 AM EST) Vitamin D 25-OH Total 18.1(L) >30 ng/mL [facility] Comment:Health Based Referen ce Values*< 20 ng/mL [id number] ng/mL Insufficient> 30 ng/mL Sufficient*Stephanie BAKER. N [...] ORDERAB LES Final Result Performing Organization Address [facility] Co de Phone Number [facility] [address] [place] [phone] * (ABNORMAL) Creatinine, Serum (11/14/2024 11:08 AM EST) Creatinine, Serum 2.65(H) 0.5 - 1.4 mg/dL [facility] Estimated Glomerular Filt Rate 24 [facility] Comment:Chronic Kidney Disea se: Estimated GFR < 60 mL/min/[id number] Kidney Disease: Estimated GFR < 15 mL/min/1.73m2 11/14/2024 11:0 8 AM EST 11/14/2024 11:08 AM EST Generic External Data Provider LAB BLOOD ORDERAB LES Final Result Performing Organization Address [facility] de Phone Number [facility] [address] [place] [phone] * (ABNORMAL) CBC auto differential (11/14/2024 11:08 AM EST) White Blood Count 10.7 4.8 - 10.8 X10*3/uL [facility] Red Blood Count 4.02(L) 4.60 - 5.80 X10*6/uL [facility] Hemoglobin 11.0(L) 14.0 - 18.0 g/dl [facility] Hematocrit 35.9(L) 42.0 - 52.0 % [facility] Mean Corpuscular Volume 89.3 80.0 - 98.0 fL [facility] Mean Corpuscular Hemoglobin 27.4 27.0 - 33.0 pg [facility] Mean Corpuscular HGB Conc 30.6(L) 31.0 - 36.0 g/dl [facility] Red Cell Distribution Width 15.3 11.0 - 16.0 % [facility] Platelet Count 440(H) 160 - 400 X10*3/uL [facility] Mean Platelet Volume 9.8 9.4 - 12.4 fL [facility] Neutrophils Percent Auto 58.9 45 - 73 % [facility] Imm Gran Pct Auto 0.4 0.0 - 0.4 % [facility] Lymphocytes Percent Auto 26.1 20 - 40 % [facility] Monocytes Percent Auto 6.2 2 - 11 % [facility] Eosinophils Percent Auto 7.6(H) 0 - 4 % [facility] Basophils Percent Auto 0.8 0 - 2 % [facility] NRBC Pct Auto 0.0 0.0 - 0.2 /100WBC [facility] Neutrophils Absolute Auto 6.3 2.0 - 8.3 x10*3/uL [facility] Imm Gran Abs Auto 0.04(H) 0.00 - 0.03 X10*3/uL [facility] Lymphocytes Absolute Auto 2.8 1.2 - 4.9 X10*3/uL [facility] Monocytes Absolute Auto 0.7 0.1 - 1.2 X10*3/uL [facility] Eosinophils Absolute Auto 0.8(H) 0.0 - 0.4 X10*3/uL [facility] Basophils Absolute Auto 0.1 0.0 - 0.2 X10*3/uL [facility] NRBC Abs Auto 0.000 0.0 - 0.012 X10*3/uL [facility] 11/14/2024 11:0 8 AM EST 11/14/2024 11:08 AM EST us Generic External Data Provider LAB BLOOD ORDERAB LES Final Result [facility] [address] [place] [address] [phone] * (ABNORMAL) BUN (Blood Urea Nitrogen) (11/14/2024 11:08 AM EST) Urea Nitrogen (BUN) 31(H) 9 - 16 mg/dL [facility] 11/14/2024 11:0 8 AM EST 11/14/2024 11:08 AM EST Generic External Data Provider LAB BLOOD ORDERAB LES Final Result Performing Organization Address [facility] Co de Phone Number [facility] [address] [place] [phone] * Phosphate (As Phosphorus) (11/14/2024 11:08 AM EST) Phosphorus 2.9 2.7 - 4.5 mg/dL [facility] 11/14/2024 11:0 8 AM EST 11/14/2024 11:08 AM EST Generic External Data Provider LAB BLOOD ORDERAB LES Final Result Performing Organization Address [facility] Co de Phone Number [facility] [address] [place] [phone] * (ABNORMAL) PTH, Intact Without Calcium (11/14/2024 11:08 AM EST) Parathyroid Hormone, Intact 136.0(H) 8.7 - 77.1 pg/mL [facility] 11/14/2024 11:0 8 AM EST 11/14/2024 11:08 AM EST Generic External Data Provider LAB BLOOD ORDERAB LES Final Result Performing Organization Address [facility] Co de Phone Number [facility] [address] [place] [phone] * Calcium (11/14/2024 11:08 AM EST) Calcium 8.9 8.4 - 10.2 mg/dL [facility] 11/14/2024 11:0 8 AM EST 11/14/2024 11:08 AM EST Generic External Data Provider LAB BLOOD ORDERAB LES Final Result Performing Organization Address [facility] Co de Phone Number [facility] [address] [place] [phone] * (ABNORMAL) Electrolyte Panel (11/14/2024 11:08 AM EST) Sodium 139 135 - 145 mmol/L [facility] Potassium 4.8 3.3 - 5.1 mmol/L [facility] Chloride 110(H) 96 - 108 mmol/L [facility] Carbon Dioxide 25 22 - 29 mmol/L [facility] Anion Gap 9(L) 12 - 20 [facility] 11/14/2024 11:0 8 AM EST 11/14/2024 11:08 AM EST Generic External Data Provider LAB BLOOD ORDERAB LES Final Result Performing Organization Address [facility] de Phone Number [facility] [address] [place] [phone] from Last 3 Months Insurance [facility] PPO Care Teams Trimmer Helper Relationship Specialty Start Date End Date Name, MD Jeffrey [address] [place] [address] PCP - General Internal Medicine 06/21/24
== END 2024-11-24 12:12 | disposition home or self-care (01) ==
PROVIDERS: Visit Provider Internal Medicine Nephrology
DX: N18.32 Chronic kidney disease, stage 3b (principal); I15.1 Hypertension secondary to other renal disorders; N25.81 Secondary hyperparathyroidism of renal origin; E55.9 Vitamin D deficiency, unspecified
CPT/HCPCS: 99214

== ENCOUNTER 2025-01-22 08:43 | Day surgery (SDC) | payer OTHER, SELFPAY ==
--- NOTE | 2025-01-19 11:02 | HO.ANESPROP2 ---
Documented by User: Amina Langston NP 01/19/25 11:48 HPI - Anesthesia Eval Consult details Narrative: 74yo M for Laser Ablation Prostate w/Green Light with BILATERAL Antegrade and Nephrostogram,with PCN REMOVAL Follows [facility]ph[facility]. 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 Had JANINA on CKD due to urinary retention- renal function stable UO good with SP nephrostomy No ACEI/ARB for now;Had edema due to Amlodipine- stopped Ordered Vitamin D; No NSAID's; Started Carvedilol 6.25 mg bid No NSAID's and good hydration.NO BACTRIM PMFSH Active Problems Active Problems: All Active Problems Vitamin D deficiency (Acute) Stage 3b chronic kidney disease (CKD) (Acute) HTN (hypertension) (Acute) Secondary hyperparathyroidism (of renal origin) (Acute) Hydronephrosis (Acute) Bladder outlet obstruction (Acute) Enlarged prostate with urinary obstruction (Acute) Past Medical History Medical History (Updated 01/22/25 @ 09:26 by Katelynn Uribe RN) Hematuria Vitamin D deficiency Secondary hyperparathyroidism (of renal origin) Enlarged prostate HTN (hypertension) Acute kidney injury superimposed on CKD Hypertension Enlarged prostate with urinary obstruction Bladder outlet obstruction Renal failure Urinary tract infection Family History Family history of problems with anesthesia: No Surgical History Surgical History (Updated 01/22/25 @ 09:26 by Katelynn Uribe RN) History of bladder surgery History of kidney surgery History of Problems with Anesthesia: No Social History Social History Household Members: Significant Other Housing: House Are you a primary day care center director to a significant other at home: No Do you presently have visiting nurse or other home services: No Patient Tobacco Use Status: Never used Tobacco Use of substances other than those prescribed or required for medical reasons: No Have you been hit, kicked, punched, or otherwise hurt by someone within the past year? If so, by whom?: No Are you DNR?: No Advance Directives: Yes Advance Directives Information Provided: Yes Advance Directives on File: Yes Advance Directives Date on File: 05/30/24 service: No Meds Allergies Allergy/AdvReac Type Severity Reaction Status Date / Time No Known Allergies Allergy Verified 01/22/25 09:13 Exam Pertinent Lab Results Pertinent Lab Results: Laboratory Tests 11/14/24 11:08 WBC 10.7 Hgb 11.0 L Hct 35.9 L Plt Count 440 H Sodium 139 Potassium 4.8 D Chloride 110 H Carbon Dioxide 25 BUN 31 H Creatinine 2.65 H Assessment and Plan Assessment Anesthesia Assessment: Chart Reviewed Final Anesthetic Review Family History of Problems with Anesthesia: No History of Problems with Anesthesia: No Documented by User: Emir House MD 01/22/25 11:34 COUNT INCLUDES THE [facility] Past Medical History Medical History (Updated 01/22/25 @ 09:26 by Katelynn Uribe RN) Hematuria Vitamin D deficiency Secondary hyperparathyroidism (of renal origin) Enlarged prostate HTN (hypertension) Acute kidney injury superimposed on CKD Hypertension Enlarged prostate with urinary obstruction Bladder outlet obstruction Renal failure Urinary tract infection Surgical History Surgical History (Updated 01/22/25 @ 09:26 by Katelynn Uribe RN) History of bladder surgery History of kidney surgery Social History Social History Household Members: Significant Other Housing: House Are you a primary day care center director to a significant other at home: No Do you presently have visiting nurse or other home services: No Patient Tobacco Use Status: Never used Tobacco Use of substances other than those prescribed or required for medical reasons: No Have you been hit, kicked, punched, or otherwise hurt by someone within the past year? If so, by whom?: No Are you DNR?: No Advance Directives: Yes Advance Directives Information Provided: Yes Advance Directives on File: Yes Advance Directives Date on File: 05/30/24 service: No Meds Allergies Allergy/AdvReac Type Severity Reaction Status Date / Time No Known Allergies Allergy Verified 01/22/25 09:13 Exam Airway Mallampati Class: III TM Dist: >3cm Neck ROM: Full Assessment and Plan Assessment Anesthesia Assessment: Anesthesia Plan Discussed Final Anesthetic Review NPO: Yes ASA Class: III Final Preanesthetic Review: No Changes in Pt Med Stat, Meds/Allgs Chart Reviewed, Consent Obtained/Reviewed and Anes Risks/Benef Reviewed Patient Risk: Intermediate Procedure Risk: Low Anesthetic Plan Anesthetic Plan: GA Disposition: Standard PACU
[2025-01-22] VITALS (7 sets, daily range): BP systolic 141–180; BP diastolic 63–86; PULSE 41–44; RESP 16–18; TEMP 36.1–36.6; O2SAT 97–100; BMI 28.0
--- NOTE | ~2025-01-22 | FL_ITS ---
EXAMINATION: FL GUIDANCE ONLY HISTORY: BILATERAL ANTEGRADES NEPHROSTOGRAM COMPARISON: Correlation is made with a CT of the abdomen and pelvis without contrast dated 1223. TECHNIQUE: Fluoroscopy time: 11.7 seconds. Cumulative Dose: 2.49 mGy. Images: 9. FINDINGS: Images demonstrate injection of contrast through bilateral nephrostomy tubes. There is moderate bilateral hydronephrosis. The ureters are dilated and tortuous. The distal ureters are not imaged. FL/FL guidance in OR IMPRESSION: Fluoroscopy during procedure. Please see procedure report for additional information. Electronically signed by: Fer Erickson MD 01/22/2025 03:49 PM EDT
--- NOTE | 2025-01-22 09:27 | ECG_ITS ---
Test Reason : PREOP Blood Pressure : */* mmHG Vent. Rate : 42 BPM Atrial Rate : 42 BPM P-R Int : 184 ms QRS Dur : 100 ms QT Int : 522 ms P-R-T Axes : 15 -9 137 degrees QTcB Int : 435 ms Marked sinus bradycardia Moderate voltage criteria for LVH, may be normal variant ( R in aVL , [place] product ) Septal infarct , age undetermined ST & T wave abnormality, consider lateral ischemia Abnormal ECG No previous ECGs available Referred By: Emir House Electronically Signed By: Russ Jones
[2025-01-22] MEDS: Lactated Ringers 1,000 ML 100 ML IVCONT (09:31)
--- NOTE | 2025-01-22 10:53 | PC.NURSE ---
Patient in preop. SB on monitor with possible prolonged QT, HR 40's. Patient asymptomatic. No EKG on file. Dr. House made aware. New order for EKG preop. EKG obtained. No new orders at this time.
--- NOTE | 2025-01-22 11:01 | MHC.SHP ---
Pre-Procedural Eval Section A - 24 Hr Update-Section A only Date of Service: 01/22/25 The patient is an INPATIENT: No Changes since office visit: No Cold of Flu in the past 2 weeks, No New Medical Problems, No Changes in Medication and No Patient answered all questions The patient has been examined within 24 hours of the surgical procedure. The History & Physical has been completed within 30 days and I have reviewed it.: Yes Section B - Complete if H&P > 30 days Chief Complaint: IN OR Retention of urine,hydronephrosis Details of Present Illness: bilateral antegrade nephrostomy, removal of nephrostomy tubes, GreenLight laser prostate Relevant Family History (Specify if Yes): No Relevant Social History: None Present Medications: see Short Stay Collaborative assessment Medical History: Significant History History of Previous Operations: Relevant previous surgery/procedure and date(s) Allergies: Allergies Allergy/AdvReac Type Severity Reaction Status Date / Time No Known Allergies Allergy Verified 01/22/25 09:13 Review of Systems Sugical H&P ROS: Negative: Constitution, Cardiovascular, Respiratory, Neurological, Psychiatric, Hem-Onc, Allergic/Immunologic, Gastrointestinal, Genitourinary, Musculoskeletal, Integumentary, Endocrine and Eyes/Ears/Nose/Throat Exam Surgical H&P Exam: Normal: HEENT, Normal: Heart, Normal: Lungs, Normal: Extremities, Normal: Abdomen, Normal: Skin and Normal: Neurological Plan Diagnosis/Plan: Unchanged ( bilateral antegrade nephrostogram, nephrostomy tube removal, GreenLight laser) I have reviewed the history and physical and performed a pertinent physical examination on my patient. No changes have occurred unless specified. Time Spent With Patient Time: Total time managing care of this patient today ____ minutes.
--- NOTE | 2025-01-22 13:13 | W.PM.OPN ---
Operative Note Operative Note Date of Service: 01/22/25 Narrative: PreOperative Diagnosis: Bladder outlet obstruction Bilateral hydronephrosis Post Operative Diagnosis: Bladder outlet obstruction Procedure: GreenLight Laser Enucleation of the prostate CPT 63203 - bilateral nephrostogram - removal of bilateral PCN tubes Surgeon: Dr Alan Reynolds Anesthesia: General History of bladder outlet obstruction. Had initially been seen in hospital with acute renal failure, bilateral hydronephrosis and urinary retention. Unable to place stents from below Bilateral nephrostomy tubes had been placed Subsequently these have been capped Initially he was managed with a suprapubic tube however he was able to void in the suprapubic tube was removed Has been on finasteride for three-month Presents today for prostate procedure Known extremely large prostate Recommendation for prostate procedure with laser enucleation of prostate. Risks and benefits have been discussed. Focus was placed on development of retrograde ejaculation which is a normal part of this procedure. Procedure: After informed consent was verified the patient was brought to the operating room and placed in a supine position. Anesthesia was administered per protocol. Patient was placed in modified dorsal lithotomy position and prepped and draped in a sterile fashion. Safety pause time-out was confirmed. Antibiotics have been given. Bilateral nephrostomy g were initially shot using cm. Both them showed tortuous ureters however there was emptying into the bladder. No obstruction seen. A Twenty-four Wallisian laser cystoscope was inserted per urethra. No abnormalities were found of the anterior and bulbar urethra. The prostatic urethra showed prior evidence of prostate procedure. There was marked trilobar hypertrophy . The bladder was examined and both ureteric orifices were seen away from the area of interest. Bladder trabeculation Grade 3 with deep cellules. Careful examination showed significant regrowth from the left side. Broad-based median area. Decision was made to use the GreenLight to carefully expand the space on the left lateral regrowth 1st. Using a GreenLight laser with initial settings of 80 campos incisions were made at the 5 o'clock position. The incisions were taken down from the bladder neck down to the area just proximal of the veru. These were gradually deepened in order to define the lateral aspects of the median lobe area. The deep boundary of enucleation was defined by the prostate surgical capsule. Turning the laser up to 120 w we then worked at fully exposing the left lateral groove. At this point we were then able to start ablating the median lobe running from the left to the right side. During this process we also created a deeper 07:00 groove. Of note he had extremely long prostate a proximally 8-9 cm. It was also quite high. The median lobe was then ablated and enucleated tissue released into the bladder with the laser power increased to 140 W. Once the median lobe area had been cleared, attention was directed to the lateral lobes. Starting with the patient's left lateral lobe. The laser fiber was placed at the 1 o'clock position and a secondary groove was developed down to the level of prostatic capsule. The creation of a second deep groove defined a segment of intervening tissue similar to a slice of orange. At the apex of the prostate the laser was used to vertically link the two grooves releasing the intervening tissue and creating a segment of tissue. This tissue was then removed with a combination of enucleation and ablation working from the apex toward the bladder neck. Prostate tissue was peeled in the sidewall running from the 5 o'clock position up towards the 1 o'clock position. A similar procedure was repeated on the patient's right-hand side. The only differences being the position of the lateral groove at he 7 o'clock position and the secondary groove at the 11 o'clock position, Otherwise the procedure was developed in a mirror fashion. After the majority of tissue had been debulked remnant tissue was ablated with the side fire laser and the curve of the prostate followed up each side wall clearly defining the anterior remnant strip that remained between the 11 and 1 o'clock positions. At completion debris and pieces of prostate were removed from the bladder with irrigation. The laser process took a significant period of time proximally 100% longer than typical at 90 minutes versus 45 minutes. Both ureteric orifices were reviewed again in shown to be patent in away from any areas of energy damage. The apical area was reviewed and any stray mucosal ooze was controlled. A 22 Wallisian 30 cc balloon Salcedo catheter was placed into the bladder using a flexible stylet. Clear efflux was obtained upon irrigation with a Love piston syringe. 50 cc was placed in the balloon and gentle traction was placed. A snap was used to hold tension on the catheter to control bleeding during patient moved and transported. A drainage bag was placed. Once transportation is complete to the PACU the snap will be removed. The patient tolerated the procedure well, he was extubated in the operating and transferred in a stable condition to the recovery area. Total Power 402 kW Lasing time 52:40 Pathology: Prostate tissue Drains: Salcedo catheter
[2025-01-22] MEDS: oxyCODONE HCl Immed Release 5 MG TABLET PO (13:55)
== END 2025-01-22 14:30 | disposition home or self-care (01) ==
PROVIDERS: PCP Internal Medicine Geriatric Medicine; Visit Provider Urology
PROC: (CPT 52648; principal; 2025-01-22 10:30)
DX: N40.3 Nodular prostate with lower urinary tract symptoms (principal); R33.8 Other retention of urine; N13.8 Other obstructive and reflux uropathy; N13.30 Unspecified hydronephrosis; N17.9 Acute kidney failure, unspecified; N18.9 Chronic kidney disease, unspecified; I12.9 Hypertensive chronic kidney disease with stage 1 through stage 4 chronic kidney disease, or unspecified chronic kidney disease; N25.81 Secondary hyperparathyroidism of renal origin; E55.9 Vitamin D deficiency, unspecified; Z79.899 Other long term (current) drug therapy; Z98.890 Other specified postprocedural states
CPT/HCPCS: 52648; 50432; 50389; 88305; 93005; J1100; J1596; J1956; J2003; J2250; J2405; J2704; J3010; Q9967

== ENCOUNTER → 2025-01-22 08:43 | Outpatient (BNV) | payer OTHER, SELFPAY | PROVIDERS: PCP Internal Medicine Geriatric Medicine; Visit Provider Urology | DX: N32.0 Bladder-neck obstruction (principal) | CPT/HCPCS: 52649 ==

== ENCOUNTER → 2025-01-22 09:27 | Outpatient (BNV) | payer OTHER, SELFPAY | PROVIDERS: PCP Internal Medicine Geriatric Medicine; Visit Provider Internal Medicine Cardiovascular Disease | DX: R00.1 Bradycardia, unspecified (principal); R94.31 Abnormal electrocardiogram [ECG] [EKG] | CPT/HCPCS: 93010 ==

== ENCOUNTER → 2025-01-24 09:08 | Outpatient (BNVA) | payer OTHER, SELFPAY | PROVIDERS: Visit Provider Urology | DX: N40.1 Benign prostatic hyperplasia with lower urinary tract symptoms (principal); N13.8 Other obstructive and reflux uropathy; N32.0 Bladder-neck obstruction | CPT/HCPCS: 51700 ==

== ENCOUNTER 2025-02-15 11:42 | Outpatient (AMB) | payer OTHER, SELFPAY ==
--- NOTE | 2025-02-15 11:46 | MHC.OFFVIS ---
Intake Visit Reasons: Greenlight, BI Antegrade nephrostogram, follow up Intake Note: Patient is present for a ollow up/Greenlight, BI Antegrade nephrostogram Urology Medication:Finasteride Antibiotic Allergy:NONE Blood Thinner:NONE Anode Rebuilder Required: No Allergies No Known Allergies Allergy (Verified 03/02/25 10:24) HPI Comments Details: Brandon is a pleasant male. He is seen for the following urologic conditions - lower urinary tract symptoms - bilateral hydronephrosis Follow-up PVR controlled Creatinine improving Add bethanechol to improve bladder emptying Urinary retention Hospital admission 06/10 Acute renal insult with creatinine 5.[address] showed bilateral hydronephrosis with significant prostatomegaly and diffuse bladder wall thickening Salcedo catheter placed. Bilateral percutaneous nephrostomy tubes placed. Tubes draining well with slow resolution in creatinine 08/10 Suprapubic tube placed - Unable to internalize nephrostomy tube in operating room Here for review of bilateral nephrostomy tubes with suprapubic tube Right nephrostomy tube capped Review in one-week to ensure no pain and 2 cap left side and replace suprapubic tube [facility] Medical History Hematuria Vitamin D deficiency Secondary hyperparathyroidism (of renal origin) Enlarged prostate HTN (hypertension) Acute kidney injury superimposed on CKD Hypertension Enlarged prostate with urinary obstruction Bladder outlet obstruction Renal failure Urinary tract infection Surgical History History of bladder surgery History of kidney surgery Social History Household Members: Significant Other Housing: House Are you a primary intensive care unit registered nurse to a significant other at home: No Do you presently have visiting nurse or other home services: No Comment: PRN Oxycodone Patient Tobacco Use Status: Never used Tobacco Advance Directives Date on File: 05/30/24 service: No Review of Systems Const Denies chills and Denies fever(s) Card Reports no additional complaints and Denies syncope Resp Denies cough GI Denies abdominal pain and Denies heartburn Reports as per HPI and Denies change in libido Neuro Denies syncope Psych Denies change in libido Endo Denies change in libido Physical Exam Const General: cooperative, healthy appearing, comfortable and no acute distress Orientation/consciousness: patient oriented x3 HEENT Face and sinus: Yes normal facial exam Mouth: moist mucous membranes Neck Neck: Yes normal visual inspection, Yes full ROM and Yes trachea midline Chest Chest palpation & inspection: normal inspection of the chest Resp Effort & Inspection: normal respiratory effort, able to speak in complete sentences and no respiratory distress GI Inspection: Yes normal to inspection Back/Spine/Pelvis Cervical Spine: normal cervical lordosis Thoracic/Lumbar Spine: thoracic and lumbar spine normal to inspection Skin General skin exam: no rashes or lesions noted Neuro General: patient oriented x3, gait normal, tone normal and moves all extremities Extrem General: Yes normal to inspection and Yes capillary refill normal Assessment & Plan Assessment & Plan (1) Bladder outlet obstruction: Code(s): N32.0 - Bladder-neck obstruction Category: Medical (2) Enlarged prostate with urinary obstruction: Code(s): N40.1 - Benign prostatic hyperplasia with lower urinary tract symptoms; N13.8 - Other obstructive and reflux uropathy Category: Medical (3) Hydronephrosis: Code(s): N13.30 - Unspecified hydronephrosis Category: Medical Plan Trial bethanechol Orders: Orders Basic Metabolic Panel 2 Months N20.0 - Calculus of kidney, N32.0 - Bladder-neck obstruction Medications: New bethanechol chloride 50 mg PO BID 180 tabs 1RF 90 days N32.0 - Bladder-neck obstruction Patient Instructions: This note is constructed using voice recognition software. While every effort has been made to ensure accuracy incubator operator errors may have been included. Imaging studies, laboratory and physical exam results were discussed and reviewed in detail. No major barriers to patient understanding were identified. An opportunity to ask questions regarding the treatment plan was provided. All questions were answered. The patient expressed understanding and agreement with the above treatment plan. The patient is aware they should contact our office by phone for worsening of their current condition or the appearance of new urologic symptoms. Compliance is encouraged with any medications and followup testing that is ordered. It is a privilege to participate in the urologic care of your patient. If you have any questions or concerns regarding treatment for the above conditions, or other urologic issues, please do not hesitate to contact me. The office telephone contact is [phone]. Sincerely, Dr Alan Reynolds MD, ABHINAV [facility] - Urology Compassionate Specialist Care for the Genitourinary System Coding Level of Care Code Est Pt Level 4 (30862) Complex EM visit Add On G2211 Diagnoses Bladder outlet obstruction N32.0 Enlarged prostate with urinary obstruction N40.1; N13.8 Hydronephrosis N13.30
== END 2025-02-15 12:13 | disposition home or self-care (01) ==
LOC: HO.HUSH 11:43
PROVIDERS: Visit Provider Urology
DX: N32.0 Bladder-neck obstruction (principal); N40.1 Benign prostatic hyperplasia with lower urinary tract symptoms; N13.8 Other obstructive and reflux uropathy; N13.30 Unspecified hydronephrosis
CPT/HCPCS: 99024

== ENCOUNTER 2025-02-28 13:20 | Outpatient (REF) | payer OTHER, SELFPAY ==
--- OUTSIDE RECORDS SUMMARY | 2025-02-28 13:31 | XMS_ITS | Clinical Summary ---
Author Organization [employer] Address [address] [place] [address] [address] [place] [address] Care Team Providers Care Clinique Counter Manager Name Role Phone Name, Jeffrey LUJAN Primary Care Provider [phone] Allergies No known active allergies Medications amLODIPine [...] Encounters Date Type Department Care Team Description 01/22/2025 Orders Only [facility] External Provider, [facility] 12/29/2024 Telephone [facility] [address] [place], [place] [phone] Daquan Stoll [place] february recalls from Last 3 Months Immunizations Immunization Administration Dates Next Due Influenza, High Dose [...] Vaccines (1 of 2) 02/06/2002 COVID-19 Vaccine (4 - 2023-2 5 season) 2024 10/30/2021, 01/27/2021, 12/30/2020 Depression [...] Procedure Name Priority Date/Time Associated Diagnosis Comments GROSS AND MICROSCOPIC LEVEL 4 Routine 01/22/2025 1:07 PM EDT FL GUIDANCE IN OR Routine 01/22/2025 11: 20 AM EDT from Last 3 Months Results * Gross and Microscopic Level 4 (01/22/2025 1:07 PM EDT) 01/22/2025 1:07 PM EDT 01/22/2025 1:20 PM EDT Jaz[facility] - 01/23/2025 2:22 PM EDT ----- ------- Name: Brandon Singleton ?Age/Sex: 74/M ? : 1950 Unit#: [id number] ?? Attend Dr: Alan Reynolds MD ?Re01/22/25 ?Status: DEP WIC ? Location: HO.SSS ?Disch: ? ----- ------- SPEC : [id number] ? RECD: 01/22/25 ? STATUS: ??SOUT ? REQ NUM: [id number] ? JODI: 01/22/251307 ? SUBM DR: Alan Reynodls MD ? ENTERED: ??01/22/25 ?SP TYPE: Surgical ? OTHR DR: Name,Jeffrey LUJAN ? ORDERED: ??Gross Micro L4 ? Diagnosis ?? Prostate, transurethral resection: ??Nodular prostatic stromal and epithelial hyperplasia ?? (BPH). ?Clinical History Retention of urine ?Microscopic Description Microscopic sections reviewed. ? Material Received ?? Prostate ? Gross Description Received in formalin labeled ?prostate? are multiple rubbery, extensively cauterized, asencio- pink and asencio-brown fragments of resilient fibromuscular tissue aggregating 3.0 x 2.8 x 0.5 cm along with a small amount of red-maroon clotted blood, submitted in toto in cassettes A1 and A2. CEDS Copies To: ?? Alan Reynolds MD ?? [facility] ?? [address] ?? [place] [address] ?? [phone] ?? Name,Jeffrey LUJAN ?? [address] ?? [place] [address] ?? [phone] ----- ------- Signed (signature on file) Jaleel Layton MD 01/23/25 1422 ? ----- ------- ? END OF REPORT ? us Generic External Data Provider LAB CYTOLOGY [facility] Final Result [facility] [address] [place] [address] [phone] * FL Guidance in OR (01/22/2025 11:20 AM EDT) Anatomical Region Laterality Modality X-Ray Angiograph y 01/22/2025 11:2 0 AM EDT Narrative 01/22/2025 3:51 PM EDT ? [facility] ?[address] ?[place] [address] ? Fluoroscopy Report ? Signed ? Patient: Warton,Brandon ?MR#: [id number] ?? [id number] ? : 1950 ?Acct:[id number] ? Age/Sex: 74 / M ?ADM Date: 04/07/25 ? Loc: HO.SSS ? Attending Dr: Alan Reynolds MD ? Ordering Physician: Alan Reynolds MD ?? Date of Service: 01/22/25 ?? Procedure(s): FL guidance in OR ?? Accession Number(s): [id number] ? cc: Alan Reynolds MD; Name,Jeffrey LUJAN ? EXAMINATION: ??FL GUIDANCE ONLY ? HISTORY: BILATERAL ANTEGRADES NEPHROSTOGRAM ? COMPARISON: ?? Correlation is made with a CT of the abdomen and pelvis without ?? contrast dated 1224. ? TECHNIQUE: ?? Fluoroscopy time: 11.7 seconds. ?? Cumulative Dose: 2.49 mGy. ?? Images: 9. ? FINDINGS: ?? Images demonstrate injection of contrast through bilateral nephrostomy ?? tubes. There is moderate bilateral hydronephrosis. The ureters are ?? dilated and tortuous. The distal ureters are not imaged. ? FL/FL guidance in OR ?? IMPRESSION: ?? Fluoroscopy during procedure. Please see procedure report for ?? additional information. ? Electronically signed by: ??Fer Erickson MD ??01/22/2025 03:49 PM EDT ? Dictated By: ?Fer Erickson MD ? Signed By: ?<Electronically signed by Fer Erickson MD in OV> ?01/22/25 1549 ? DD/ 1120 ? TD/TT: 01/22/25 1145 ? Poultry Tender: ? Procedure Note Ministerio, Image - 01/22/2025 [place] [address] Fluoroscopy Report Signed Patient: Hilton Singleton#: [id number] : 2Acct:[id number] Age/Sex: 74 / MADM Date: 01/22/25 Loc: .[facility] Attending Dr: Alan Reynolds MD Ordering Physician: Alan Reynolds MD Date of Service: 01/22/25 Procedure(s): FL guidance in OR Accession Number(s): [id number] cc: Alan Reynolds MD; Name,Jeffrey LUJAN EXAMINATION: FL GUIDANCE ONLY HISTORY: BILATERAL ANTEGRADES NEPHROSTOGRAM COMPARISON: Correlation is made with a CT of the abdomen and pelvis without contrast dated 1223. TECHNIQUE: Fluoroscopy time: 11.7 seconds. Cumulative Dose: 2.49 mGy. Images: 9. FINDINGS: Images demonstrate injection of contrast through bilateral nephrostomy tubes. There is moderate bilateral hydronephrosis. The ureters are dilated and tortuous. The distal ureters are not imaged. FL/FL guidance in OR IMPRESSION: Fluoroscopy during procedure. Please see procedure report for additional information. Electronically signed by: Fer Erickson MD 01/22/2025 03:49 PM EDT RP Dictated By: Fer Erickson MD Signed By: <Electronically signed by Fer Erickson MD in OV> 01/22/25 1549 DD/ 1120 TD/TT: 01/22/25 1145 Poultry Tender: [facility] External Provider IMG IR PROCEDURES Final Result from Last 3 Months Insurance [facility] PPO Care Teams Clinique Counter Manager Relationship Specialty Start Date End Date Name, MD Jeffrey [address] [place] [phone] PCP - General Internal Medicine 06/21/24
--- OUTSIDE RECORDS SUMMARY | 2025-02-28 13:31 | XMS_ITS | Clinical Summary ---
Author Organization [facility] Address [address] [place] [address] Care Team Providers Care Automotive Technician Name Role Phone Unavailable Primary Care Provider Unavailabl e Source Comments PLEASE NOTE, if this patient is a minor, it may be UNLAWFUL to discuss sensitive information that is contained in these records (such as FAMILY PLANNING, MENTAL HEALTH or SUBSTANCE ABUSE) with the minor patient's parent or other person without the patient's specific authorization.[facility] Immunizations Immunization Administration Dates Next Due Moderna COVID-19 Vaccine, [...] 02/06/1997 Fecal DNA 02/06/1997 Flexible Sigmoidoscopy 02/06/1997 Imm-Pneumococcal 65+ (1 of 1 - PCV) 02/06/2002 Imm-Zoster, Recombinant (1 of 2) 02/06/2002 Abdominal Aortic Aneurysm Screening 02/06/2017 Falls Prevention 02/06/2017 [id number] ( season) 2024 021, 12/30/2020 Imm-Influenza (#1) 2024 Alcohol and Drug Screen 10/18/2024 Depression Annual Screen 10/18/2024 Insurance Tenders.es (Postmates)
[2025-02-28 14:39] LABS: Anion Gap 10 (12-20); Blood Urea Nitrogen 46 mg/dL (9-16); Carbon Dioxide 23 mmol/L (22-29); Chloride 111 mmol/L (96-108); Estimated Glomerular Filt Rate 27; Potassium 4.3 mmol/L (3.3-5.1); Sodium 140 mmol/L (135-145)
== END 2025-02-28 13:21 | disposition home or self-care (01) ==
LOC: HO.LAB 13:20
PROVIDERS: PCP Internal Medicine Geriatric Medicine; Visit Provider Internal Medicine Nephrology
DX: E55.9 Vitamin D deficiency, unspecified (principal); N18.32 Chronic kidney disease, stage 3b; I15.1 Hypertension secondary to other renal disorders; N25.81 Secondary hyperparathyroidism of renal origin
CPT/HCPCS: 36415; 80051; 82565; 84520

== ENCOUNTER 2025-03-02 10:16 | Outpatient (AMB) | payer OTHER, SELFPAY ==
--- NOTE | 2025-03-02 10:23 | HO.NEPHOV_ITS ---
Vital Signs 03/02/25 10:24 Height 5 ft 6 in Weight 171 lb 4 oz BMI 27.6 BP 172/90 H Blood Pressure Location Lt brachial Position Sitting Pulse 48 L Pulse Source Pulse Oximeter Pulse Oximetry (%) 98 Oxygen Delivery Method Room Air Intake Visit Reasons: Hypertension-Conf Child Psychologist Required: No Accompanied by: Self / Same As Patient Allergies No Known Allergies Allergy (Verified 03/02/25 10:24) HPI Comments Details: 75-year-old man with worsening urinary retention was seen in ER and was found to have creatinine of 5.68. Abdominopelvic CT showed severe bilateral hydronephrosis with enlarged prostate gland and severe prostatomegaly. Diffuse bladder wall thickening and perivascular stranding likely secondary to bladder outlet obstruction. He underwent surgery for the same. He denied hematuria, fever, flank pain, nausea, vomiting, chills or rigor. He feels improved [facility] Medical History Hematuria Vitamin D deficiency Secondary hyperparathyroidism (of renal origin) Enlarged prostate HTN (hypertension) Acute kidney injury superimposed on CKD Hypertension Enlarged prostate with urinary obstruction Bladder outlet obstruction Renal failure Urinary tract infection Surgical History History of bladder surgery History of kidney surgery Social History Household Members: Significant Other Housing: House Are you a primary md do resident urgent care to a significant other at home: No Do you presently have visiting nurse or other home services: No Comment: PRN Oxycodone Patient Tobacco Use Status: Never used Tobacco Advance Directives Date on File: 05/30/24 service: No Review of Systems Const All systems reviewed & are unremarkable except as noted in HPI and below Physical Exam Vital Signs: Last Vital Signs Pulse 48 L 03/02/25 10:24 BP 172/90 H 03/02/25 10:24 Pulse Ox 98 03/02/25 10:24 Oxygen Delivery Method Room Air 03/02/25 10:24 BMI result Body Mass Index 27.6 Const General: comfortable and no acute distress Orientation/consciousness: patient oriented x3 HEENT Head: Yes normocephalic Mouth: Normal oral and palatal mucosa present Eyes EOM: EOMs intact bilaterally Neck Neck: Yes supple Resp Auscultation: clear to auscultation bilaterally Cardio Jugular venous distension: no JVD Rate: regular rate GI Palpation (GI): Soft to palpation Auscultation: normal bowel sounds General: Yes no CVA tenderness Back/Spine/Pelvis Back: no CVA tenderness Skin General skin exam: no rashes or lesions noted Neuro General: patient oriented x3 and moves all extremities Extrem General: Yes no pedal edema Results Reviewed Nephrology Results: Sodium 140 mmol/L (135-145) 02/28/25 Potassium 4.3 mmol/L (3.3-5.1) 02/28/25 Chloride 111 mmol/L (96-108) H 02/28/25 Carbon Dioxide 23 mmol/L (22-29) 02/28/25 BUN 46 mg/dL (9-16) H 02/28/25 Creatinine 2.37 mg/dL (0.5-1.4) H 02/28/25 Calcium 8.9 mg/dL (8.4-10.2) 11/14/24 Phosphorus 2.9 mg/dL (2.7-4.5) 11/14/24 PTH Intact 136.0 pg/mL (8.7-77.1) H 11/14/24 Assessment & Plan Assessment & Plan (1) HTN (hypertension): Code(s): I10 - Essential (primary) hypertension Category: Medical Qualifiers: Hypertension type: secondary to other renal disorders Qualified Code(s): I15.1 - Hypertension secondary to other renal disorders (2) Secondary hyperparathyroidism (of renal origin): Code(s): N25.81 - Secondary hyperparathyroidism of renal origin Category: Medical (3) Vitamin D deficiency: Code(s): E55.9 - Vitamin D deficiency, unspecified Category: Medical (4) Stage 3b chronic kidney disease (CKD): Code(s): N18.32 - Chronic kidney disease, stage 3b Category: Medical Plan 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 F/U given Orders: Orders Electrolytes 3 Months E55.9 - Vitamin D deficiency, unspecified, I15.1 - Hypertension secondary to other renal disorders, N18.32 - Chronic kidney disease, stage 3b, N25.81 - Secondary hyperparathyroidism of renal origin Creatinine 3 Months E55.9 - Vitamin D deficiency, unspecified, I15.1 - Hypertension secondary to other renal disorders, N18.32 - Chronic kidney disease, stage 3b, N25.81 - Secondary hyperparathyroidism of renal origin Blood Urea Nitrogen 3 Months E55.9 - Vitamin D deficiency, unspecified, I15.1 - Hypertension secondary to other renal disorders, N18.32 - Chronic kidney disease, stage 3b, N25.81 - Secondary hyperparathyroidism of renal origin Medications: New doxazosin 2 mg PO DAILY 30 tabs 8RF Discontinued trimethoprim Discontinued Reason: Doctor's Order 100 mg PO DAILY 30 days 30 tabs 0RF Coding Level of Care Code Est Pt Level 4 (28171) Diagnoses Hypertension secondary to other renal disorders I15.1 Hypertension type: secondary to other renal disorders Secondary hyperparathyroidism (of renal origin) N25.81 Vitamin D deficiency E55.9 Stage 3b chronic kidney disease (CKD) N18.32
[2025-03-02 10:24] VITALS: BP 172/90; PULSE 48; O2SAT 98; BMI 27.6
--- OUTSIDE RECORDS SUMMARY | 2025-03-02 10:37 | XMS_ITS | Encounter Summary ---
Author Organization [employer] Address [address] [place] [address] Care Team Providers Care Diagrammer Name Role Phone Name, Jeffrey LUJAN Primary Care Provider [phone] Encounter Details Date Type Department Care Team ([facility] Contact Info) Description 02/28/2025 Orders Only GENERIC EXTERNAL DATA DEPARTMENT Provider, [...] Procedure Name Priority Date/Time Associated Diagnosis Comments CREATININE, SERUM Routine 02/28/2025 1:2 7 PM EDT UREA NITROGEN (BUN) Routine 02/28/2025 1 :27 PM EDT ELECTROLYTE PANEL Routine 02/28/2025 1:2 7 PM EDT documented in this encounter Results * (ABNORMAL) Creatinine, Serum (02/28/2025 1:27 PM EDT) Creatinine, Serum 2.37(H) 0.5 - 1.4 mg/dL [facility] Estimated Glomerular Filt Rate 27 [facility] Comment:Chronic Kidney Disea se: Estimated GFR < 60 mL/min/1.25v1Appexa Kidney Disease: Estimated GFR < 15 mL/min/1.73m2 02/28/2025 1:27 PM EDT 02/28/2025 1:27 PM EDT us Generic External Data Provider LAB BLOOD ORDERAB LES Final Result [facility] [address] [place] [phone] * (ABNORMAL) BUN (Blood Urea Nitrogen) (02/28/2025 1:27 PM EDT) Urea Nitrogen (BUN) 46(H) 9 - 16 mg/dL [facility] 02/28/2025 1:27 PM EDT 02/28/2025 1:27 PM EDT Generic External Data Provider LAB BLOOD ORDERAB LES Final Result Performing Organization Address [facility] de Phone Number [facility] [address] [place] [address] [phone] * (ABNORMAL) Electrolyte Panel (02/28/2025 1:27 PM EDT) Sodium 140 135 - 145 mmol/L [facility] Potassium 4.3 3.3 - 5.1 mmol/L [facility] Chloride 111(H) 96 - 108 mmol/L [facility] Carbon Dioxide 23 22 - 29 mmol/L [facility] Anion Gap 10(L) 12 - 20 [facility] 02/28/2025 1:27 PM EDT 02/28/2025 1:27 PM EDT [employer] External Data Provider LAB BLOOD ORDERAB LES Final Result Performing Organization Address [facility] de Phone Number [facility] [address] [place] [address] [phone] documented in this encounter Visit Diagnoses Not on filedocumented in this encounter Additional Health Concerns Assessment Noted Time PHQ-9 Depression Total Score: 0 06/21/20 10:48 AM EDT documented as of this encounter Care Teams Diagrammer Relationship Specialty Start Date End Date Name, MD Jeffrey [address] [place] [phone] PCP - General Internal Medicine 06/21/24 documented as of this encounter
--- OUTSIDE RECORDS SUMMARY | 2025-03-02 10:37 | XMS_ITS | Clinical Summary ---
Author Organization [employer] Address [address] [place] [address] 7[address] [place] [address] Care Team Providers Care Conservation Educator Name Role Phone Name, Jeffrey LUJAN Primary Care Provider [phone] Allergies No known active allergies Medications amLODIPine [...] Encounters Date Type Department Care Team Description 02/28/2025 Orders Only GENERIC EXTERNAL DATA DEPARTMENT Provider, Generic External Data 01/22/2025 Orders Only [facility] External Provider, [facility] 12/29/2024 Telephone [facility] MEDICINE [address] [place] [address] Daquan Stoll [place] february recalls from Last [...] patient's age to complete this topic Meningococcal B Vaccine Aged Out No l onger eligible based on patient's age to complete [...] PANEL Routine 02/28/2025 1:2 7 PM EDT GROSS AND MICROSCOPIC LEVEL 4 Routine 01/22/2025 1:07 PM EDT FL GUIDANCE IN OR Routine 01/22/2025 11: 20 AM EDT from Last 3 Months Results * (ABNORMAL) Creatinine, Serum (02/28/2025 1:27 PM EDT) Creatinine, Serum 2.37(H) 0.5 - 1.4 mg/dL [facility] Estimated Glomerular Filt Rate 27 [facility] Comment:Chronic Kidney Disea se: Estimated GFR < 60 mL/min/1.56q2Yrnuev Kidney Disease: Estimated GFR < 15 mL/min/1.73m2 02/28/2025 1:27 PM EDT 02/28/2025 1:27 PM EDT us Generic External Data Provider LAB BLOOD ORDERAB LES Final Result [facility] [address] [place] [phone] * (ABNORMAL) BUN (Blood Urea Nitrogen) (02/28/2025 1:27 PM EDT) Urea Nitrogen (BUN) 46(H) 9 - 16 mg/dL [facility] 02/28/2025 1:27 PM EDT 02/28/2025 1:27 PM EDT Generic External Data Provider LAB BLOOD ORDERAB LES Final Result Performing Organization Address [facility] de Phone Number [facility] [address] [place] [phone] * (ABNORMAL) Electrolyte Panel (02/28/2025 1:27 PM EDT) Sodium 140 135 - 145 mmol/L [facility] Potassium 4.3 3.3 - 5.1 mmol/L [facility] Chloride 111(H) 96 - 108 mmol/L [facility] Carbon Dioxide 23 22 - 29 mmol/L [facility] Anion Gap 10(L) 12 - 20 [facility] 02/28/2025 1:27 PM EDT 02/28/2025 1:27 PM EDT Generic External Data Provider LAB BLOOD ORDERAB LES Final Result Performing Organization Address [facility] de Phone Number [facility] [address] [place] [phone] * Gross and Microscopic Level 4 (01/22/2025 1:07 PM EDT) 01/22/2025 1:07 PM EDT 01/22/2025 1:20 PM EDT Narrative [facility] - 01/23/2025 2:22 PM EDT ----- ------- Name: Brandon Singleton ?Age/Sex: 74/M ? : 1950 Unit#: [id number] ?? Attend Dr: Alan Reynolds MD ?Re01/22/25 ?Status: DEP SDC ? Location: HO.SSS ?Disch: ? ----- ------- SPEC : [id number] ? RECD: 01/22/25-0 ? STATUS: ??SOUT ? REQ NUM: [id number] ? JODI: 01/22/25-1303 ? SUBM DR: Alan Reynolds MD ? ENTERED: ??01/22/25-1 ?SP TYPE: Surgical ? OTHR DR: Jeffrey Valderrama MD ? ORDERED: ??Gross Micro L4 ? Diagnosis [...] Copies To: ?? Alan Reynolds MD ?? [facility] ?? [address] ?? [place] [address] ?? [phone] ?? Name,Jeffrey LUJAN ?? [address] [facility] ?? [place] [address] ?? [phone] ----- ------- Signed (signature on file) Jaleel Layton MD 01/23/25 1422 ? ----- ------- ? END OF REPORT ? us Generic External Data Provider LAB CYTOLOGY LILIANAE OPHELIA Final Result [facility] [address] [place] [place] [address] [phone] * FL Guidance in OR (01/22/2025 11:20 AM EDT) Anatomical Region Laterality Modality X-Ray Angiograph y 01/22/2025 11:2 0 AM EDT Narrative 01/22/2025 3:51 PM EDT ? [facility] ?[address] ?[place] [address] ? Fluoroscopy Report ? Signed ? Patient: Warton,Brandon ?MR#: [id number] ?? [id number] ? : 1950 ?Acct:[id number] ? Age/Sex: 74 / M ?ADM Date: 01/22/25 ? Loc: HO.SSS ? Attending Dr: Alan Reynolds MD ? Ordering Physician: Alan Reynolds MD ?? Date of Service: 01/22/25 ?? Procedure(s): FL guidance in OR ?? Accession Number(s): [id number] ? cc: Alan Reynolds MD; Name,Jeffrey LUJAN [...] ??Fer Erickson MD ??01/22/2025 03:49 PM EDT ?? RP ? Dictated By: ?Fer Erickson MD ? Signed By: ?<Electronically signed by Fer Erickson MD in OV> ?01/22/25 1549 ? DD/ 1120 ? TD/TT: 01/22/25 1145 ? Small Brake Form Operator: ? Procedure Note Ruthy Mandel - 01/22/[address] [place] [address] Fluoroscopy Report Signed Patient: Denny SingletonR#: [id number] : 1950cct:[id number] Age/Sex: 74 / MADM Date: 01/22/25 Loc: HO.SSS Attending Dr: Alan Reynolds MD Ordering Physician: Alan Reynolds MD Date of Service: 01/22/25 Procedure(s): FL guidance in OR Accession Number(s): [id number] cc: Alan Reynolds MD; Name,Jeffrey LUJAN EXAMINATION: [...] Fer Erickson MD 01/22/2025 03:49 PM EDT Dictated By: Fer Erickson MD Signed By: <Electronically signed by Fer Erickson MD in OV> 01/22/25 1549 DD/ 1120 TD/TT: 01/22/25 1145 Small Brake Form Operator: [facility] External Provider IMG IR PROCEDURES Final Result from Last 3 Months Insurance [facility] PPO Care Teams Conservation Educator Relationship Specialty Start Date End Date Name, MD Jeffrey [address] [place] [address] PCP - General Internal Medicine 06/21/24
--- OUTSIDE RECORDS SUMMARY | 2025-03-02 10:37 | XMS_ITS | Clinical Summary ---
Author Organization [facility] Address [address] [place] [address] Care Team Providers Care Ambulatory Services Representative Name Role Phone Unavailable Primary Care Provider [...] Aortic Aneurysm Screening 02/06/2017 Falls Prevention 02/06/2017 [id number] ( season) 2024 021, 12/30/2020 Imm-Influenza (#1) 2024 Alcohol and Drug Screen 10/18/2024 Depression Annual Screen 10/18/2024 Insurance [employer] ([employer])
== END 2025-03-02 10:49 | disposition home or self-care (01) ==
LOC: HO.HKA 10:16
PROVIDERS: Visit Provider Internal Medicine Nephrology
DX: I15.1 Hypertension secondary to other renal disorders (principal); N25.81 Secondary hyperparathyroidism of renal origin; E55.9 Vitamin D deficiency, unspecified; N18.32 Chronic kidney disease, stage 3b
CPT/HCPCS: 99214

== ENCOUNTER 2025-04-12 14:45 | Outpatient (REF) | payer OTHER, SELFPAY ==
[2025-04-12 15:28] LABS: Anion Gap 12 (12-20); Blood Urea Nitrogen 40 mg/dL (9-16); Calcium 8.5 mg/dL (8.4-10.2); Carbon Dioxide 24 mmol/L (22-29); Chloride 110 mmol/L (96-108); Estimated Glomerular Filt Rate 28; Glucose Random 89 mg/dL (60-115); Potassium 4.8 mmol/L (3.3-5.1); Sodium 141 mmol/L (135-145)
--- OUTSIDE RECORDS SUMMARY | 2025-04-12 17:55 | XMS_ITS | Clinical Summary ---
Author Organization [facility] Address [address] [place] [address] Care Team Providers Care Nurse Case Management Name Role Phone Unavailable Primary Care Provider [...] Fecal DNA 02/06/1997 Flexible Sigmoidoscopy 02/06/1997 Imm-Pneumococcal 50+ (1 of 1 - PCV) 02/06/2002 Imm-Zoster, Recombinant (1 of 2) 02/06/2002 Abdominal Aortic Aneurysm Screening 02/06/2017 Falls Prevention 02/06/2017 [id number] ( season) 2024 021, 12/30/2020 Alcohol and Drug Screen 10/18/2024 Depression Annual Screen 10/18/2024 Imm-Influenza (Season Ended) 2025 Insurance [employer] ([employer])
== END 2025-04-12 14:46 | disposition home or self-care (01) ==
LOC: HO.LAB 14:45
PROVIDERS: PCP Internal Medicine Geriatric Medicine; Visit Provider Urology
DX: N20.0 Calculus of kidney (principal); N32.0 Bladder-neck obstruction
CPT/HCPCS: 36415; 80048

== ENCOUNTER 2025-04-17 11:26 | Outpatient (AMB) | payer OTHER, SELFPAY ==
--- NOTE | 2025-04-17 11:52 | MHC.OFFVIS ---
Intake Visit Reasons: 2m/labs/PVR Intake Note: Patient is present for a 2mo follow up with PVR and labs [facility] 02/28/25 Urology Medication:Finasteride, Doxazosin,Bethanechol Antibiotic Allergy:NONE Blood Thinner:NONE PVR:421m mls Printing Press Operator Required: No Accompanied by: Self / Same As Patient Allergies No Known Allergies Allergy (Verified 04/17/25 12:00) HPI Comments Details: Brandon is a pleasant male. He is seen for the following urologic conditions - lower urinary tract symptoms - bilateral hydronephrosis Follow-up Large PVR today Continue with bethanechol He tells me he has improvement in symptomatology Lower urinary tract symptoms 02/09 There is moderate bilateral hydronephrosis. The ureters are dilated and tortuous [employer] laser 02/09 Urinary retention Hospital admission 06/10 Acute renal insult with creatinine 5.[address] showed bilateral hydronephrosis with significant prostatomegaly and diffuse bladder wall thickening Salcedo catheter placed. Bilateral percutaneous nephrostomy tubes placed. Tubes draining well with slow resolution in creatinine 08/10 Suprapubic tube placed - Unable to internalize nephrostomy tube in operating room [facility] Medical History Hematuria Vitamin D deficiency Secondary hyperparathyroidism (of renal origin) Enlarged prostate HTN (hypertension) Acute kidney injury superimposed on CKD Hypertension Enlarged prostate with urinary obstruction Bladder outlet obstruction Renal failure Urinary tract infection Surgical History History of bladder surgery History of kidney surgery Social History Household Members: Significant Other Housing: House Are you a primary health care legal assistant to a significant other at home: No Do you presently have visiting nurse or other home services: No Comment: PRN Oxycodone Patient Tobacco Use Status: Never used Tobacco Advance Directives Date on File: 05/30/24 service: No Review of Systems Const Denies chills and Denies fever(s) Card Reports no additional complaints and Denies syncope Resp Denies cough GI Denies abdominal pain and Denies heartburn Reports as per HPI and Denies change in libido Neuro Denies syncope Psych Denies change in libido Endo Denies change in libido Physical Exam Const General: cooperative, healthy appearing, comfortable and no acute distress Orientation/consciousness: patient oriented x3 HEENT Face and sinus: Yes normal facial exam Mouth: moist mucous membranes Neck Neck: Yes normal visual inspection, Yes full ROM and Yes trachea midline Chest Chest palpation & inspection: normal inspection of the chest Resp Effort & Inspection: normal respiratory effort, able to speak in complete sentences and no respiratory distress GI Inspection: Yes normal to inspection Back/Spine/Pelvis Cervical Spine: normal cervical lordosis Thoracic/Lumbar Spine: thoracic and lumbar spine normal to inspection Skin General skin exam: no rashes or lesions noted Neuro General: patient oriented x3, gait normal, tone normal and moves all extremities Extrem General: Yes normal to inspection and Yes capillary refill normal Office Procedures Post Void Residual Post Residual Void Post Void Residual (PVR): 421 [id number]-[id number] Void Residual by ultrasound Results AMB Urinalysis, Automated UA Leukoctes 500 Salena/uL Last Edit by Nasra Salomon MA on 04/17/25 13:42 UA Nitrite Negative Last Edit by Nasra Salomon MA on 04/17/25 13:42 UA Urobilinogen 3.5 mg/dL Last Edit by Nasra Salomon MA on 04/17/25 13:42 UA Protein 3.0 mg/dL Last Edit by Nasra Salomon MA on 04/17/25 13:42 UA pH 6.0 Last Edit by Nasra Salomon MA on 04/17/25 13:42 UA Blood 200 Kai/uL Last Edit by Nasra Salomon MA on 04/17/25 13:42 UA Specific [place] 1.020 Last Edit by Nasra Salomon MA on 04/17/25 13:42 UA Ketone Negative Last Edit by Nasra Salomon MA on 04/17/25 13:42 UA Bilirubin 0 mg/dL Last Edit by Nasra Salomon MA on 04/17/25 13:42 UA Glucose 0 mg/dL Last Edit by Nasra Salomon MA on 04/17/25 13:42 Results Reviewed Results Reviewed: Laboratory Last Values Urine pH (Auto) 6.0 04/17/25 12:20 Specific [place] (Auto) 1.020 04/17/25 12:20 Urine Protein (Auto) 3.0 mg/dL 04/17/25 12:20 Glucose (UA)(Auto) 0 mg/dL 04/17/25 12:20 Urine Ketones (Auto) Negative 04/17/25 12:20 Urine Blood (Auto) 200 Kai/uL 04/17/25 12:20 Urine Nitrite (Auto) Negative 04/17/25 12:20 Urine Bilirubin (Auto) 0 mg/dL 04/17/25 12:20 Urine Urobilinogen (Auto) 3.5 mg/dL 04/17/25 12:20 Leukocyte Esterase (Auto) 500 Salena/uL 04/17/25 12:20 Assessment & Plan Assessment & Plan (1) Bladder outlet obstruction: Code(s): N32.0 - Bladder-neck obstruction Category: Medical (2) Hydronephrosis: Code(s): N13.30 - Unspecified hydronephrosis Category: Medical Plan Continue finasteride and bethanechol Orders: Orders AMB Urinalysis Automated Today Z13.9 - Encounter for screening, unspecified AMB Post Void Residual by ultrasound Today N32.0 - Bladder-neck obstruction Medications: Changed From doxazosin 2 mg PO DAILY 30 tabs 8RF To doxazosin 2 mg PO DAILY 90 tabs 1RF 90 days Refilled finasteride 5 mg PO DAILY 90 tabs 1RF 90 days N32.0 - Bladder-neck obstruction Patient Instructions: This note is constructed using voice recognition software. While every effort has been made to ensure accuracy learning center instructor errors may have been included. Imaging studies, laboratory and physical exam results were discussed and reviewed in detail. No major barriers to patient understanding were identified. An opportunity to ask questions regarding the treatment plan was provided. All questions were answered. The patient expressed understanding and agreement with the above treatment plan. The patient is aware they should contact our office by phone for worsening of their current condition or the appearance of new urologic symptoms. Compliance is encouraged with any medications and followup testing that is ordered. It is a privilege to participate in the urologic care of your patient. If you have any questions or concerns regarding treatment for the above conditions, or other urologic issues, please do not hesitate to contact me. The office telephone contact is [phone]. Sincerely, Dr Alan Reynolds MD, ABHINAV [facility] - Urology Compassionate Specialist Care for the Genitourinary System Coding Level of Care Code Est Pt Level 3 (77093) Complex EM visit Add On G2211 Diagnoses Bladder outlet obstruction N32.0 Hydronephrosis N13.30 CPT Codes Post Residual Void - PVR CPT Code: 41272-Tvpy Void Residual by ultrasound ([id number])
--- OUTSIDE RECORDS SUMMARY | 2025-04-17 12:42 | XMS_ITS | Encounter Summary ---
Author Organization [employer] Address [address] [place] [address] 7 [place] [address] Care Team Providers Care Head Neck Surgeon Name Role Phone Name, Jeffrey LUJAN Primary Care Provider [phone] Reason for Visit * Reason Onset Date Comments Appointment Request 03/02/2025 Encounter Details Date Type Department Care Team ([facility] Contact Info) Description 03/02/2025 Telephone [facility] MEDICINE [address] [place], [place] [phone] Name, MD Jeffrey [address] [place] [address] Appointment Request Social History Tobacco Use Types Packs/Day Years [...] encounter Miscellaneous Notes * Telephone Encounter - Chasidy Esquivel - 03/02/2025 12:20 PM EDT Tc from pt requesting a pshysical appt Contact pt at [phone] documented in this encounter Plan of Treatment Upcoming Encounters Date Type Department Care Team (Late st Contact Info) Description 05/22/2025 10:15 AM EDT Office Visit [facility] MEDICINE [address] [place] [address] NameJeffrey MD [address] [place] [address] documented as of this encounter Visit Diagnoses Not on filedocumented in this encounter Additional Health Concerns Assessment Noted Time PHQ-9 Depression Total Score: 0 06/21/20 24 10:48 AM EDT documented as of this encounter Care Teams Head Neck Surgeon Relationship Specialty Start Date End Date NameJeffrey MD [address] [place] [address] [place] [address] PCP - General Internal Medicine 06/21/24 documented as of this encounter
== END 2025-04-17 12:23 | disposition home or self-care (01) ==
LOC: HO.HUSH 11:27
PROVIDERS: Visit Provider Urology
DX: N32.0 Bladder-neck obstruction (principal); N13.30 Unspecified hydronephrosis; Z13.9 Encounter for screening, unspecified
CPT/HCPCS: 99024

== ENCOUNTER → 2025-04-17 11:26 | Outpatient (BNVA) | payer OTHER, SELFPAY | PROVIDERS: Visit Provider Urology | DX: N32.0 Bladder-neck obstruction (principal) | CPT/HCPCS: 51798; 81003 ==

== ENCOUNTER 2025-06-05 16:24 | Outpatient (REF) | payer OTHER, SELFPAY ==
[2025-06-05 17:40] LABS: Anion Gap 11 (12-20); Blood Urea Nitrogen 34 mg/dL (9-16); Carbon Dioxide 22 mmol/L (22-29); Chloride 110 mmol/L (96-108); Estimated Glomerular Filt Rate 36; Potassium 4.3 mmol/L (3.3-5.1); Sodium 139 mmol/L (135-145)
--- OUTSIDE RECORDS SUMMARY | 2025-06-05 17:42 | XMS_ITS | Clinical Summary ---
Author Organization [facility] Address [address] [place] [address] Care Team Providers Care Candy Waffle Assembler Name Role Phone Unavailable Primary Care Provider [...] Aortic Aneurysm Screening 02/06/2017 Falls Prevention 02/06/2017 [id number] ( season) 2024 021, 12/30/2020 Alcohol and Drug Screen 10/18/2024 Depression Annual Screen 10/18/2024 Imm-Influenza (#1) 2025 Insurance [employer] ([employer])
--- OUTSIDE RECORDS SUMMARY | 2025-06-05 17:42 | XMS_ITS | Encounter Summary ---
Author Organization [employer] Address [address] [place] [address] 7 [place] [address] Care Team Providers Care General Dentist Name Role Phone Name, Jeffrey LJUAN Primary Care Provider [phone] Reason for Visit * Reason Onset Date Comments Appointment Request 03/02/2025 Encounter Details Date Type Department Care Team ([facility] Contact Info) Description 03/02/2025 Telephone [facility] MEDICINE [address] [place], [place] [phone] Name, MD Jeffrey [address] [place] [address] Appointment Request Social History Tobacco Use Types Packs/Day Years Used Date Smoking Tobacco: Never Passive Smoke Exposure: Never Smokeless Tobacco: Never Alcohol Use Standard Drinks/Week Comments Not Currently 0 (1 standard drink = 0.6 oz pur e alcohol) Depression Answer Date Recorded Patient Health Questionnaire-9 [...] requesting a pshysical appt Contact pt at [phone] documented in this encounter Plan of Treatment Not on file documented as of this encounter Visit Diagnoses Not on filedocumented in this encounter Additional Health Concerns Assessment Noted Time PHQ-9 Depression Total Score: 0 06/21/20 10:48 AM EDT documented as of this encounter Care Teams General Dentist Relationship Specialty Start Date End Date Name, MD Jeffrey [address] [place] [address] PCP - General Internal Medicine 06/21/24 documented as of this encounter
== END 2025-06-05 16:25 | disposition home or self-care (01) ==
LOC: HO.LAB 16:24
PROVIDERS: PCP Internal Medicine Geriatric Medicine; Visit Provider Internal Medicine Nephrology
DX: I12.9 Hypertensive chronic kidney disease with stage 1 through stage 4 chronic kidney disease, or unspecified chronic kidney disease (principal); N18.32 Chronic kidney disease, stage 3b; E55.9 Vitamin D deficiency, unspecified; N25.81 Secondary hyperparathyroidism of renal origin
CPT/HCPCS: 36415; 80051; 82565; 84520

== ENCOUNTER 2025-06-06 09:55 | Outpatient (AMB) | payer OTHER, SELFPAY ==
--- NOTE | 2025-06-06 10:07 | HO.NEPHOV ---
Vital Signs 06/06/25 10:08 Height 5 ft 6 in Weight 169 lb 2 oz BMI 27.3 BP 120/78 Blood Pressure Location Rt brachial Position Sitting Pulse 45 L Pulse Source Pulse Oximeter Pulse Oximetry (%) 98 Oxygen Delivery Method Room Air Intake Visit Reasons: 3 MO FU Payroll Accounting Clerk Required: No Accompanied by: Self / Same As Patient Allergies No Known Allergies Allergy (Verified 06/06/25 10:07) HPI Comments Details: 75-year-old man with H/O urinary retention was found to have creatinine of 5.68. Abdominopelvic CT at that time showed severe bilateral hydronephrosis with enlarged prostate gland and severe prostatomegaly. Diffuse bladder wall thickening and perivascular stranding likely secondary to bladder outlet obstruction. He underwent surgery for the same. He denied hematuria, fever, flank pain, nausea, vomiting, chills or rigor. He feels improved [facility] Medical History Hematuria Vitamin D deficiency Secondary hyperparathyroidism (of renal origin) Enlarged prostate HTN (hypertension) Acute kidney injury superimposed on CKD Hypertension Enlarged prostate with urinary obstruction Bladder outlet obstruction Renal failure Urinary tract infection Surgical History History of bladder surgery History of kidney surgery Social History Household Members: Significant Other Housing: House Are you a primary critical care technician to a significant other at home: No Do you presently have visiting nurse or other home services: No Comment: PRN Oxycodone Patient Tobacco Use Status: Never used Tobacco Advance Directives Date on File: 05/30/24 service: No Review of Systems Const All systems reviewed & are unremarkable except as noted in HPI and below Physical Exam Vital Signs: Last Vital Signs Pulse 45 L 06/06/25 10:08 BP 120/78 06/06/25 10:08 Pulse Ox 98 06/06/25 10:08 Oxygen Delivery Method Room Air 06/06/25 10:08 BMI result Body Mass Index 27.3 Const General: comfortable and no acute distress Orientation/consciousness: patient oriented x3 HEENT Head: Yes normocephalic Mouth: Normal oral and palatal mucosa present Eyes EOM: EOMs intact bilaterally Neck Neck: Yes supple Resp Auscultation: clear to auscultation bilaterally Cardio Jugular venous distension: no JVD Rate: regular rate GI Palpation (GI): Soft to palpation Auscultation: normal bowel sounds General: Yes no CVA tenderness Back/Spine/Pelvis Back: no CVA tenderness Skin General skin exam: no rashes or lesions noted Neuro General: patient oriented x3 and moves all extremities Extrem General: Yes no pedal edema Results Reviewed Nephrology Results: Sodium, (135-145) 139 mmol/L 06/05/25 Potassium, (3.3-5.1) 4.3 mmol/L 06/05/25 Chloride, (96-108) 110 mmol/L H 06/05/25 Carbon Dioxide, (22-29) 22 mmol/L 06/05/25 BUN, (9-16) 34 mg/dL H 06/05/25 Creatinine, (0.5-1.4) 1.83 mg/dL H 06/05/25 Calcium, (8.4-10.2) 8.5 mg/dL 04/12/25 Renal US 06/01/24 Assessment & Plan Assessment & Plan (1) HTN (hypertension): Code(s): I10 - Essential (primary) hypertension Category: Medical Qualifiers: Hypertension type: secondary to other renal disorders Qualified Code(s): I15.1 - Hypertension secondary to other renal disorders (2) Secondary hyperparathyroidism (of renal origin): Code(s): N25.81 - Secondary hyperparathyroidism of renal origin Category: Medical (3) Vitamin D deficiency: Code(s): E55.9 - Vitamin D deficiency, unspecified Category: Medical (4) Stage 3b chronic kidney disease (CKD): Code(s): N18.32 - Chronic kidney disease, stage 3b Category: Medical Plan 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 F/U given Orders: Orders Protein Creatinine Ratio, Ur 4 Months E55.9 - Vitamin D deficiency, unspecified, I15.1 - Hypertension secondary to other renal disorders, N18.32 - Chronic kidney disease, stage 3b, N25.81 - Secondary hyperparathyroidism of renal origin Blood Urea Nitrogen 4 Months E55.9 - Vitamin D deficiency, unspecified, I15.1 - Hypertension secondary to other renal disorders, N18.32 - Chronic kidney disease, stage 3b, N25.81 - Secondary hyperparathyroidism of renal origin Electrolytes 4 Months E55.9 - Vitamin D deficiency, unspecified, I15.1 - Hypertension secondary to other renal disorders, N18.32 - Chronic kidney disease, stage 3b, N25.81 - Secondary hyperparathyroidism of renal origin Creatinine 4 Months E55.9 - Vitamin D deficiency, unspecified, I15.1 - Hypertension secondary to other renal disorders, N18.32 - Chronic kidney disease, stage 3b, N25.81 - Secondary hyperparathyroidism of renal origin Parathyroid Hormone Intact 4 Months E55.9 - Vitamin D deficiency, unspecified, I15.1 - Hypertension secondary to other renal disorders, N18.32 - Chronic kidney disease, stage 3b, N25.81 - Secondary hyperparathyroidism of renal origin Vitamin D 25-OH Total 4 Months E55.9 - Vitamin D deficiency, unspecified, I15.1 - Hypertension secondary to other renal disorders, N18.32 - Chronic kidney disease, stage 3b, N25.81 - Secondary hyperparathyroidism of renal origin Coding Level of Care Code Est Pt Level 4 (82608) Diagnoses Hypertension secondary to other renal disorders I15.1 Hypertension type: secondary to other renal disorders Secondary hyperparathyroidism (of renal origin) N25.81 Vitamin D deficiency E55.9 Stage 3b chronic kidney disease (CKD) N18.32
[2025-06-06 10:08] VITALS: BP 120/78; PULSE 45; O2SAT 98; BMI 27.3
--- OUTSIDE RECORDS SUMMARY | 2025-06-06 10:51 | XMS_ITS | Clinical Summary ---
Author Organization [facility] Address [address] [place] [address] Care Team Providers Care Senior Industrial Engineer Name Role Phone Unavailable Primary Care Provider [...] Aortic Aneurysm Screening 02/06/2017 Falls Prevention 02/06/2017 [id number] ( season) 2024 021, 12/30/2020 Alcohol and Drug Screen 10/18/2024 Depression Annual Screen 10/18/2024 Imm-Influenza (#1) 2025 Insurance [employer] ([employer])
--- OUTSIDE RECORDS SUMMARY | 2025-06-06 10:51 | XMS_ITS | Encounter Summary ---
Author Organization [employer] Address [address] [place] [address] [address] [place] [address] Care Team Providers Care Professional Nurse Name Role Phone Name, Jeffrey LUJAN Primary Care Provider [phone] Reason for Visit * Reason Onset Date Comments Appointment Request 03/02/2025 Encounter Details Date Type Department Care Team ([facility] Contact Info) Description 03/02/2025 Telephone [facility] MEDICINE [address] [place], [place] [phone] Name, MD Jeffrey [address] [place] [address] Appointment Request Social History Tobacco Use Types [...] requesting a pshysical appt Contact pt at [phone] documented in this encounter Plan of Treatment Not on file documented as of this encounter Visit Diagnoses Not on filedocumented in this encounter Additional Health Concerns Assessment Noted Time PHQ-9 Depression Total Score: 0 06/21/20 10:48 AM EDT documented as of this encounter Care Teams Professional Nurse Relationship Specialty Start Date End Date Name, MD Jeffrey [address] [place] [address] PCP - General Internal Medicine 06/21/24 documented as of this encounter
== END 2025-06-06 10:17 | disposition home or self-care (01) ==
LOC: HO.HKA 09:56
PROVIDERS: Visit Provider Internal Medicine Nephrology
DX: I15.1 Hypertension secondary to other renal disorders (principal); N25.81 Secondary hyperparathyroidism of renal origin; E55.9 Vitamin D deficiency, unspecified; N18.32 Chronic kidney disease, stage 3b
CPT/HCPCS: 99214

== ENCOUNTER 2025-10-08 13:03 | Outpatient (REF) | payer OTHER, SELFPAY ==
[2025-10-08 15:29] LABS: Protein/Creatinine Ratio, Ur 0.64 (<0.2); Total Protein Urine Random 57 mg/dL (<12)
[2025-10-08 16:18] LABS: Anion Gap 14 (12-20); Blood Urea Nitrogen 34 mg/dL (9-16); Carbon Dioxide 24 mmol/L (22-29); Chloride 109 mmol/L (96-108); Estimated Glomerular Filt Rate 34; Potassium 4.7 mmol/L (3.3-5.1); Sodium 142 mmol/L (135-145)
[2025-10-08 16:19] LABS: Parathyroid Hormone Intact 167.7 pg/mL (8.7-77.1)
--- OUTSIDE RECORDS SUMMARY | 2025-10-08 16:25 | XMS_ITS | Clinical Summary ---
Author Organization [employer] Address [address] [place] [address] [address] [place] [address] Care Team Providers Care Granular Operator Name Role Phone Name, Jeffrey LUJAN Primary Care Provider [phone] Allergies Active Allergy Reactions Criticality Noted Date Comments Amlodipine 05/22/2025 Leg edema Medications finasteride (Proscar) 5 MG tablet TAKE 1 TABLET BY MOUTH EVERY DAY FOR 90 DAYS 06/11/2024 Active doxazosin (Cardura) 2 MG tablet Take 1 tablet by mouth Once per day. 04/17/2025 Active cholecalciferol VITAMIN D (Vitamin D-3) 50 MCG (1999 UT) capsule Take 1 capsule by mouth Once per day. 02/20/2025 Active carvedilol (Coreg) 6.25 MG tablet Take 1 tablet by mouth 2 times daily. 01/23/2025 Active bethanechol (Urecholine) 50 MG tablet 05/21/2025 Active trimethoprim (Trimpex) 100 MG tablet 01/22/2025 Active Active Problems Problem Noted Date Diagnosed Date BPH with urinary obstruction 06/21/2024 JANINA (acute kidney injury) 06/21/2024 CKD (chronic kidney disease) stage 4, GFR 15-29 ml/min ([facility]) 06/21/2024 Hypertension 06/21/2024 Encounters Date Type Department Care Team Description 10/08/2025 Orders Only GENERIC EXTERNAL DATA DEPARTMENT Provider, Generic External Data from Last 3 Months Immunizations Immunization Administration Dates Next Due Influenza, High Dose Seasonal, Preservative Free 08/25/2024 Pneumococcal Conjugate PCV 20 08/25/2024 Tdap 05/22/2025 Social History Tobacco Use Types Packs/Day Years [...] Sign Reading Time Taken Comments Blood Pressure 130/82 05/22/2025 10:20 AM EDT Pulse 75 05/22/2025 10:20 AM EDT Temperature 36.3 C (97.3 F) 05/22/2025 10:20 AM EDT Respiratory Rate 20 05/22/2025 10:20 AM EDT Oxygen Saturation 98% 05/22/2025 10:20 AM EDT Inhaled Oxygen Concentration - - Weight 76 kg (167 lb 9.6 oz) 05/22/2025 10:20 AM EDT Height 162.6 cm (5' 4 ) 05/22/2025 10:20 AM EDT Body Mass Index 28.77 05/22/2025 10:20 AM EDT Plan of Treatment Health Maintenance Due Date Last Done Comments CT Colonography 1952 Colonoscopy 1952 Colorectal Cancer Screening 1952 FIT DNA/Cologuard 1952 FIT 1952 FOBT 1952 Lipid Panel 1952 SDOH Screening 1952 Sigmoidoscopy 1952 Alcohol/Substance Use Screening 1964 Hepatitis C Screening 02/06/1970 Zoster Vaccines (1 of 2) 02/06/2002 COVID-19 Vaccine ( - 2024-2 6 season) 2025 10/30/2021, 01/27/2021, 12/30/2020 Influenza Vaccine (#1) 2025 08/25/2024 Depression Screening 06/21/2025 06/21/2024, 06/21/2024 Tobacco Screening 05/22/2026 05/22/2025 RSV Patients and Patients Aged 60 years or older (1 - 1-dose 75+ series) 02/06/2027 DTaP/Tdap/Td Vaccines (2 - T d or Tdap) 05/22/2035 05/22/2025 Pneumococcal Vaccine: 50+ Years Completed 08/25/2024 HIB [...] Date/Time Associated Diagnosis Comments VITAMIN D,25-OH,TOTAL,IA Routine 10/08/2025 1:13 PM EST PTH, INTACT WITHOUT CALCIUM Routine 10/08/2025 1:13 PM EST CREATININE, SERUM Routine 10/08/2025 1:1 3 PM EST UREA NITROGEN (BUN) Routine 10/08/2025 1 :13 PM EST ELECTROLYTE PANEL Routine 10/08/2025 1:1 3 PM EST PROTEIN CREATININE RATIO, URINE Routine 10/08/2025 1:08 PM EST from Last 3 Months Results * Vitamin D, 25-Hydroxy, Total, Immunoassay (10/08/2025 1:13 PM EST) Vitamin D 25-OH Total 42.4 >30 ng/mL [facility] Comment: Health Based Reference Values*< 20 ng/mL Vymzxsgcu85-00 ng/mL Insufficient> 30 ng/mL Sufficient*Stephanie BAKER. N Engl J Med. 2007;357:266-280There is no well-established upper level of normal vitamin Dlevels. Some laboratories use 50 ng/mL as an upper limit ofnormal. However, toxicity is patient-dependent and may occurat any level. Careful correlation with the patient'spresentation is necessary and, if there is concern forvitamin D toxicity, treatment should be consideredirrespective of the serum level.Care must be taken in interpreting Vitamin D [...] confirmed with another method such as LC-MS/MS. 10/08/2025 1:13 PM EST 10/08/2025 1:13 PM EST us Generic External Data Provider LAB BLOOD ORDERAB LES Final Result Performing Organization Address [facility]/ZIP Co de Phone Number [facility] [address] [place] [phone] * (ABNORMAL) Creatinine, Serum (10/08/2025 1:13 PM EST) Creatinine, Serum 1.93(H) 0.5 - 1.4 mg/dL [facility] Estimated Glomerular Filt Rate 34 [facility] Comment:Chronic Kidney Disea se: Estimated GFR < 60 mL/min/[id number] Kidney Disease: Estimated GFR < 15 mL/min/1.73m2 10/08/2025 1:13 PM EST 10/08/2025 1:13 PM EST us Generic External Data Provider LAB BLOOD ORDERAB LES Final Result Performing Organization Address [facility] Co de Phone Number [facility] [address] [place] [phone] * (ABNORMAL) BUN (Blood Urea Nitrogen) (10/08/2025 1:13 PM EST) Urea Nitrogen (BUN) 34(H) 9 - 16 mg/dL [facility] 10/08/2025 1:13 PM EST 10/08/2025 1:13 PM EST us Generic External Data Provider LAB BLOOD ORDERAB LES Final Result Performing Organization Address [facility] Co de Phone Number [facility] [address] [place] [phone] * (ABNORMAL) PTH, Intact Without Calcium (10/08/2025 1:13 PM EST) Parathyroid Hormone, Intact 167.7(H) 8.7 - 77.1 pg/mL [facility] 10/08/2025 1:13 PM EST 10/08/2025 1:13 PM EST us Generic External Data Provider LAB BLOOD ORDERAB LES Final Result Performing Organization Address [facility] de Phone Number [facility] [address] [place] [phone] * (ABNORMAL) Electrolyte Panel (10/08/2025 1:13 PM EST) Sodium 142 135 - 145 mmol/L [facility] Potassium 4.7 3.3 - 5.1 mmol/L [facility] Chloride 109(H) 96 - 108 mmol/L [facility] Carbon Dioxide 24 22 - 29 mmol/L [facility] Anion Gap 14 12 - 20 [facility] 10/08/2025 1:13 PM EST 10/08/2025 1:13 PM EST Generic External Data Provider LAB BLOOD ORDERAB LES Final Result Performing Organization Address [facility] Phone Number [facility] [address] [place] [phone] * (ABNORMAL) Protein Creatinine Ratio, Urine (10/08/2025 1:08 PM EST) Creatinine, Urine 88.96 mg/dL [facility] Protein, Total, Random Urine 57(H) <12 mg/dL [facility] Protein/Creati nine Ratio, Ur 0.64(H) <0.2 [facility] Comment:The spot urine prote in:creatinine ratio may increase to 0.3during normal . 10/08/2025 1:08 PM EST 10/08/2025 2:19 PM EST Generic External Data Provider LAB URINE ORDERAB LES Final Result Performing Organization Address [facility] de Phone Number [facility] [address] [place] [address] [phone] from Last 3 Months Insurance [facility] Care Teams Granular Operator Relationship Specialty Start Date End Date Name, MD Jeffrey [address] [place] [phone] PCP - General Internal Medicine 06/21/24
--- OUTSIDE RECORDS SUMMARY | 2025-10-08 16:25 | XMS_ITS | Encounter Summary ---
Author Organization [employer] Address [address] [facility] 7t [place] [address] Care Team Providers Care Attacher Name Role Phone Name, Jeffrey LUJAN Primary Care Provider [phone] Encounter Details Date Type Department Care Team ([facility] Contact Info) Description 10/08/2025 Orders Only GENERIC EXTERNAL DATA [...] VITAMIN D,25-OH,TOTAL,IA Routine 10/08/2025 1:13 PM EST CREATININE, SERUM Routine 10/08/2025 1:1 3 PM EST UREA NITROGEN (BUN) Routine 10/08/2025 1 :13 PM EST PTH, INTACT WITHOUT CALCIUM Routine 10/08/2025 1:13 PM EST ELECTROLYTE PANEL Routine 10/08/2025 1:1 3 PM EST PROTEIN CREATININE RATIO, URINE Routine 10/08/2025 1:08 PM EST documented in this encounter Results * Vitamin D, 25-Hydroxy, Total, Immunoassay (10/08/2025 1:13 PM EST) Vitamin D 25-OH Total 42.4 >30 ng/mL [facility] Comment: Health Based Reference Values*< 20 ng/mL Occzslesi42-11 ng/mL Insufficient> 30 ng/mL Sufficient*Stephanie BAKER. N [...] Final Result Performing Organization Address [facility]/ZIP Co de Phone Number [facility] [address] [place] [phone] * (ABNORMAL) PTH, Intact Without Calcium (10/08/2025 1:13 PM EST) Parathyroid Hormone, Intact 167.7(H) 8.7 - 77.1 pg/mL [facility] 10/08/2025 1:13 PM EST 10/08/2025 1:13 PM EST Generic External Data Provider LAB BLOOD ORDERAB LES Final Result Performing Organization Address [facility] Co de Phone Number [facility] [address] [place] [phone] * (ABNORMAL) Creatinine, Serum (10/08/2025 1:13 PM EST) Creatinine, Serum 1.93(H) 0.5 - 1.4 mg/dL [facility] Estimated Glomerular Filt Rate 34 [facility] Comment:Chronic Kidney Disea se: Estimated GFR < 60 mL/min/1.09l2Xedpzl Kidney Disease: Estimated GFR < 15 mL/min/1.73m2 10/08/2025 1:13 PM EST 10/08/2025 1:13 PM EST Generic External Data Provider LAB BLOOD ORDERAB LES Final Result Performing Organization Address [facility] de Phone Number [facility] [address] [place] [phone] * (ABNORMAL) BUN (Blood Urea Nitrogen) (10/08/2025 1:13 PM EST) Urea Nitrogen (BUN) 34(H) 9 - 16 mg/dL [facility] 10/08/2025 1:13 PM EST 10/08/2025 1:13 PM EST Generic External Data Provider LAB BLOOD ORDERAB LES Final Result Performing Organization Address [facility] Number [facility] [address] [place] [phone] * (ABNORMAL) Electrolyte Panel (10/08/2025 1:13 PM EST) Sodium 142 135 - 145 mmol/L [facility] Potassium 4.7 3.3 - 5.1 mmol/L [facility] Chloride 109(H) 96 - 108 mmol/L [facility] Carbon Dioxide 24 22 - 29 mmol/L [facility] Anion Gap 14 12 - 20 [facility] 10/08/2025 1:13 PM EST 10/08/2025 1:13 PM EST Generic External Data Provider LAB BLOOD ORDERAB LES Final Result Performing Organization Address [facility] Co de Phone Number [facility] [address] [place] [phone] * (ABNORMAL) Protein Creatinine Ratio, Urine (10/08/2025 1:08 PM EST) Creatinine, Urine 88.96 mg/dL [facility] Protein, Total, Random Urine 57(H) <12 mg/dL [facility] Protein/Creati nine Ratio, Ur 0.64(H) <0.2 [facility] Comment:The spot urine prote in:creatinine ratio may increase to 0.3during normal . 10/08/2025 1:08 PM EST 10/08/2025 2:19 PM EST us Generic External Data Provider LAB URINE ORDERAB LES Final Result Performing Organization Address City/State/[facility] Co de Phone Number [facility] [address] [place] [phone] documented in this encounter Visit Diagnoses Not on filedocumented in this encounter Additional Health Concerns Assessment Noted Time PHQ-9 Depression Total Score: 0 06/21/20 24 10:48 AM EDT documented as of this encounter Care Teams Attacher Relationship Specialty Start Date End Date Name, MD Jeffrey [address] [place] [address] PCP - General Internal Medicine 06/21/24 documented as of this encounter
== END 2025-10-08 13:04 | disposition home or self-care (01) ==
LOC: HO.LAB 13:03
PROVIDERS: PCP Internal Medicine Geriatric Medicine; Visit Provider Internal Medicine Nephrology
DX: N25.81 Secondary hyperparathyroidism of renal origin (principal); N18.32 Chronic kidney disease, stage 3b; I15.1 Hypertension secondary to other renal disorders; E55.9 Vitamin D deficiency, unspecified
CPT/HCPCS: 36415; 80051; 82306; 82565; 82570; 83970; 84156; 84520

== ENCOUNTER 2025-10-10 10:18 | Outpatient (AMB) | payer OTHER, SELFPAY ==
[2025-10-10 10:27] VITALS: BP 160/90; PULSE 48; O2SAT 96; BMI 27.9
--- NOTE | 2025-10-10 10:27 | HO.NEPHOV_ITS ---
Vital Signs 10/10/25 10:27 Height 5 ft 6 in Weight 173 lb BMI 27.9 BP 160/90 H Blood Pressure Location Lt brachial Position Sitting Pulse 48 L Pulse Source Pulse Oximeter Pulse Oximetry (%) 96 Oxygen Delivery Method Room Air Intake Visit Reasons: 4 MO FU Physicist [place] Required: No Accompanied by: Self / Same As Patient Allergies No Known Allergies Allergy (Verified 10/10/25 10:29) HPI Comments Details: 75-year-old man with H/O urinary retention was found to have creatinine of 5.68. Abdominopelvic CT at that time showed severe bilateral hydronephrosis with enlarged prostate gland and severe prostatomegaly. Diffuse bladder wall thickening and perivascular stranding likely secondary to bladder outlet obstruction. He underwent surgery for the same. He denied hematuria, fever, flank pain, nausea, vomiting, chills or rigor. He feels well [facility] Medical History Hematuria Vitamin D deficiency Secondary hyperparathyroidism (of renal origin) Enlarged prostate HTN (hypertension) Acute kidney injury superimposed on CKD Hypertension Enlarged prostate with urinary obstruction Bladder outlet obstruction Renal failure Urinary tract infection Surgical History History of bladder surgery History of kidney surgery Social History Household Members: Significant Other Housing: House Are you a primary healthcare market consultant to a significant other at home: No Do you presently have visiting nurse or other home services: No Comment: PRN Oxycodone Patient Tobacco Use Status: Never used Tobacco Advance Directives Date on File: 05/30/24 service: No Review of Systems Const All systems reviewed & are unremarkable except as noted in HPI and below Physical Exam Vital Signs: Last Vital Signs Pulse 48 L 10/10/25 10:27 BP 160/90 H 10/10/25 10:27 Pulse Ox 96 10/10/25 10:27 Oxygen Delivery Method Room Air 10/10/25 10:27 BMI result Body Mass Index 27.9 Const General: comfortable and no acute distress Orientation/consciousness: patient oriented x3 HEENT Head: Yes normocephalic Mouth: Normal oral and palatal mucosa present Eyes EOM: EOMs intact bilaterally Neck Neck: Yes supple Resp Auscultation: clear to auscultation bilaterally Cardio Jugular venous distension: no JVD Rate: regular rate GI Palpation (GI): Soft to palpation Auscultation: normal bowel sounds General: Yes no CVA tenderness Back/Spine/Pelvis Back: no CVA tenderness Skin General skin exam: no rashes or lesions noted Neuro General: patient oriented x3 and moves all extremities Extrem General: Yes no pedal edema Results Reviewed Nephrology Results: Sodium, (135-145) 142 mmol/L 10/08/25 Potassium, (3.3-5.1) 4.7 mmol/L 10/08/25 Chloride, (96-108) 109 mmol/L H 10/08/25 Carbon Dioxide, (22-29) 24 mmol/L 10/08/25 BUN, (9-16) 34 mg/dL H 10/08/25 Creatinine, (0.5-1.4) 1.93 mg/dL H 10/08/25 Calcium, (8.4-10.2) 8.5 mg/dL 04/12/25 PTH Intact, (8.7-77.1) 167.7 pg/mL H 10/08/25 Urine Creatinine 88.96 mg/dL 10/08/25 Protein/Creatinin Ratio, (<0.2) 0.64 H 10/08/25 Renal US 06/01/24 Assessment & Plan Assessment & Plan (1) HTN (hypertension): Code(s): I10 - Essential (primary) hypertension Category: Medical Qualifiers: Hypertension type: secondary to other renal disorders Qualified Code(s): I15.1 - Hypertension secondary to other renal disorders (2) Secondary hyperparathyroidism (of renal origin): Code(s): N25.81 - Secondary hyperparathyroidism of renal origin Category: Medical (3) Stage 3b chronic kidney disease (CKD): Code(s): N18.32 - Chronic kidney disease, stage 3b Category: Medical Plan 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 F/U given Medications: New doxazosin 4 mg PO DAILY 90 tabs 4RF Coding Level of Care Code Est Pt Level 4 (96730) Diagnoses Hypertension secondary to other renal disorders I15.1 Hypertension type: secondary to other renal disorders Secondary hyperparathyroidism (of renal origin) N25.81 Stage 3b chronic kidney disease (CKD) N18.32
--- OUTSIDE RECORDS SUMMARY | 2025-10-10 10:27 | XMS_ITS | Clinical Summary ---
Author Organization [employer] Address [address] [place] [address] [address]t [place] [address] Care Team Providers Care Marketing Area Manager Name Role Phone Name, Jeffrey LUJAN Primary Care Provider [phone] Allergies Active Allergy Reactions Criticality Noted Date [...] kidney disease) stage 4, GFR 15-29 ml/min ([facility]) 06/21/2024 Hypertension 06/21/2024 Encounters Date [...] Vitamin D 25-OH Total 42.4 >30 ng/mL [facility] Comment: Health Based Reference Values*< 20 ng/mL Najivjfic53-79 ng/mL Insufficient> 30 ng/mL Sufficient*Stephanie BAKER. N [...] ORDERAB LES Final Result Performing Organization Address [facility]/ZIP Co de Phone Number [facility] [address] [place] [phone] * (ABNORMAL) Creatinine, Serum (10/08/2025 1:13 PM EST) Creatinine, Serum 1.93(H) 0.5 - 1.4 mg/dL [facility] Estimated Glomerular Filt Rate 34 [facility] Comment:Chronic Kidney Disea se: Estimated GFR < 60 mL/min/[id number] Kidney Disease: Estimated GFR < 15 mL/min/1.73m2 10/08/2025 1:13 PM EST 10/08/2025 1:13 PM EST us Generic External Data Provider LAB BLOOD ORDERAB LES Final Result Performing Organization Address [facility] Co de Phone Number [facility] [address] [place] [phone] * (ABNORMAL) BUN (Blood Urea Nitrogen) (10/08/2025 1:13 PM EST) Urea Nitrogen (BUN) 34(H) 9 - 16 mg/dL [facility] 10/08/2025 1:13 PM EST 10/08/2025 1:13 PM EST us Generic External Data Provider LAB BLOOD ORDERAB LES Final Result Performing Organization Address [facility] Co de Phone Number [facility] [address] [place] [address] [phone] * (ABNORMAL) PTH, Intact Without Calcium (10/08/2025 1:13 PM EST) Parathyroid Hormone, Intact 167.7(H) 8.7 - 77.1 pg/mL [facility] 10/08/2025 1:13 PM EST 10/08/2025 1:13 PM EST us Generic External Data Provider LAB BLOOD ORDERAB LES Final Result Performing Organization Address [facility] de Phone Number [facility] [address] [place] [address] [phone] * (ABNORMAL) Electrolyte Panel (10/08/2025 1:13 PM EST) Sodium 142 135 - 145 mmol/L [facility] Potassium 4.7 3.3 - 5.1 mmol/L [facility] Chloride 109(H) 96 - 108 mmol/L [facility] Carbon Dioxide 24 22 - 29 mmol/L [facility] Anion Gap 14 12 - 20 [facility] 10/08/2025 1:13 PM EST 10/08/2025 1:13 PM EST Generic External Data Provider LAB BLOOD ORDERAB LES Final Result Performing Organization Address [facility] Phone Number [facility] [address] [place] [address] [phone] * (ABNORMAL) Protein Creatinine Ratio, Urine (10/08/2025 1:08 PM EST) Creatinine, Urine 88.96 mg/dL [facility] Protein, Total, Random Urine 57(H) <12 mg/dL [facility] Protein/Creati nine Ratio, Ur 0.64(H) <0.2 [facility] Comment:The spot urine prote in:creatinine ratio may increase to 0.3during normal . 10/08/2025 1:08 PM EST 10/08/2025 2:19 PM EST Generic External Data Provider LAB URINE ORDERAB LES Final Result Performing Organization Address [facility] de Phone Number [facility] [address] [place] [address] [phone] from Last 3 Months Insurance REPLACED BY [facility] PPO Care Teams Marketing Area Manager Relationship Specialty Start Date End Date Name, MD Jeffrey [address] [place] [phone] PCP - General Internal Medicine 06/21/24
--- OUTSIDE RECORDS SUMMARY | 2025-10-10 10:27 | XMS_ITS | Encounter Summary ---
Author Organization [employer] Address [address] [facility] [address] [place] [address] Care Team Providers Care Aerosol Supervisor Name Role Phone Name, Jeffrey LUJAN Primary Care Provider [phone] Encounter Details Date Type Department Care Team ([facility] Contact Info) Description 10/08/2025 Orders Only GENERIC [...] Vitamin D 25-OH Total 42.4 >30 ng/mL [facility] Comment: Health Based Reference Values*< 20 ng/mL [id number] ng/mL Insufficient> 30 ng/mL Sufficient*Stephanie BAKER. N [...] ORDERAB LES Final Result Performing Organization Address [facility]/ZIP Co de Phone Number [facility] [address] [place] [phone] * (ABNORMAL) PTH, Intact Without Calcium (10/08/2025 1:13 PM EST) Parathyroid Hormone, Intact 167.7(H) 8.7 - 77.1 pg/mL [facility] 10/08/2025 1:13 PM EST 10/08/2025 1:13 PM EST Generic External Data Provider LAB BLOOD ORDERAB LES Final Result Performing Organization Address [facility] Co de Phone Number [facility] [address] [place] [phone] * (ABNORMAL) Creatinine, Serum (10/08/2025 1:13 PM EST) Creatinine, Serum 1.93(H) 0.5 - 1.4 mg/dL [facility] Estimated Glomerular Filt Rate 34 [facility] Comment:Chronic Kidney Disea se: Estimated GFR < 60 mL/min/[id number] Kidney Disease: Estimated GFR < 15 mL/min/1.73m2 10/08/2025 1:13 PM EST 10/08/2025 1:13 PM EST Generic External Data Provider LAB BLOOD ORDERAB LES Final Result Performing Organization Address [facility] de Phone Number [facility] [address] [place] [phone] * (ABNORMAL) BUN (Blood Urea Nitrogen) (10/08/2025 1:13 PM EST) Urea Nitrogen (BUN) 34(H) 9 - 16 mg/dL [facility] 10/08/2025 1:13 PM EST 10/08/2025 1:13 PM EST Generic External Data Provider LAB BLOOD ORDERAB LES Final Result Performing Organization Address [facility] Number [facility] [address] [place] [phone] * (ABNORMAL) Electrolyte Panel (10/08/2025 1:13 PM EST) Sodium 142 135 - 145 mmol/L [facility] Potassium 4.7 3.3 - 5.1 mmol/L [facility] Chloride 109(H) 96 - 108 mmol/L [facility] Carbon Dioxide 24 22 - 29 mmol/L [facility] Anion Gap 14 12 - 20 [facility] 10/08/2025 1:13 PM EST 10/08/2025 1:13 PM EST Generic External Data Provider LAB BLOOD ORDERAB LES Final Result Performing Organization Address [facility] Co de Phone Number [facility] [address] [place] [phone] * (ABNORMAL) Protein Creatinine Ratio, Urine (10/08/2025 1:08 PM EST) Creatinine, Urine 88.96 mg/dL [facility] Protein, Total, Random Urine 57(H) <12 mg/dL [facility] Protein/Creati nine Ratio, Ur 0.64(H) <0.2 [facility] Comment:The spot urine prote in:creatinine ratio may increase to 0.3during normal . 10/08/2025 1:08 PM EST 10/08/2025 2:19 PM EST us Generic External Data Provider LAB URINE ORDERAB LES Final Result Performing Organization Address City/State/[facility] Co de Phone Number [facility] [address] [place] [phone] documented in this encounter Visit Diagnoses Not on filedocumented in this encounter Additional Health Concerns Assessment Noted Time PHQ-9 Depression Total Score: 0 06/21/20 24 10:48 AM EDT documented as of this encounter Care Teams Aerosol Supervisor Relationship Specialty Start Date End Date Name, MD [address] [place] [phone] PCP - General Internal Medicine 06/21/24 documented as of this encounter
== END 2025-10-10 10:55 | disposition home or self-care (01) ==
LOC: HO.HKA 10:18
PROVIDERS: PCP Internal Medicine Geriatric Medicine; Visit Provider Internal Medicine Nephrology
DX: I15.1 Hypertension secondary to other renal disorders (principal); N25.81 Secondary hyperparathyroidism of renal origin; N18.32 Chronic kidney disease, stage 3b
CPT/HCPCS: 99214